=== PATIENT | female | born 1965 | race Caucasian/White ===

== ENCOUNTER → 2016-05-29 | Outpatient (CLI) | payer OTHER ==
[~2016-05-29] MED LIST: CITA40TA12 PO; CLB/200 PO; METF500T PO; RANI300T2 PO; RXC5 PO
== END | disposition home or self-care (01) ==
LOC: C.PAPS 15:43
PROVIDERS: ATTEND Obstetrics & Gynecology
DX: Z12.4 Encounter for screening for malignant neoplasm of cervix (principal)

== ENCOUNTER → 2017-07-24 | Outpatient (CLI) | payer OTHER | END | disposition home or self-care (01) | LOC: C.PAPS 15:12 | PROVIDERS: ATTEND Obstetrics & Gynecology | DX: Z01.419 Encounter for gynecological examination (general) (routine) without abnormal findings (principal) ==

== ENCOUNTER 2020-03-06 16:57 | Inpatient (IN) ==
--- OUTSIDE RECORDS SUMMARY | 2020-03-06 17:00 | External Medical Summary | Continuity of Care Document ---
:1965 Author Name Gabriel Peguero Address Unavailable Unavailable , Care Team Providers Name Role Phone Sherrell Peguero Unavailable [email or web address] [email or web address] Unavailable Unavailable Problems Active medical history not documented Allergies and Adverse Reactions Allergy history not documented Medications Medications not documented Procedures Procedures not documented Immunizations Immunizations not documented Plan of Treatment Planned Observations Planned Goals not documented Results No Known Results Results not documented
--- OUTSIDE RECORDS SUMMARY | 2020-03-06 17:00 | External Medical Summary | Continuity of Care Document ---
:1965 Author Name Gabriel Peguero Address Unavailable Unavailable , Care Team Providers Name Role Phone Sherrell Peguero Unavailable [email or web address] Willie CASH Unavailable Unavailable Problems Active medical history not documented Allergies and Adverse Reactions Allergy history not documented Medications Medications not documented Procedures Procedures not documented Immunizations Immunizations not documented Plan of Treatment Planned Observations Planned Goals not documented Results No Known Results Results not documented
[2020-03-06 17:46] LABS: Basophils # (auto) 0.02 K/uL (0-0.2); Basophils % (auto) 0.1 %; Hematocrit (blood only) 55.4 % (37-47); Immature Granulocytes # (auto) 0.11 K/uL (0.00-0.02); Immature Granulocytes % (auto) 0.7 %; Lymphocytes # (auto) 2.76 K/uL (1.2-3.4); Lymphocytes % (auto) 16.9 %; Mean Corpuscular Hemoglobin 29.8 pg (25-34); Mean Platelet Volume 10.5 fL (7.4-10.4); Monocytes # (auto) 1.22 K/uL (0.11-0.59); Monocytes % (auto) 7.5 %; Neutrophils % (auto) 74.8 %; Platelet Count 354 K/uL (130-400); RDW Coefficient of Variation 14.6 % (11.5-14.5); RDW Standard Deviation 52.3 fL (36.4-46.3); Red Blood Count 5.71 M/uL (4.2-5.4); White Blood Count 16.31 K/uL (4.8-10.8)
[2020-03-06 17:49] LABS: Mean Corpuscular Hgb Conc 30.7 g/dL (32-36)
[2020-03-06] MEDS ORDERED: SODIUM CHLORIDE 0.9% 1000ML 2,000 ML IV ONE (17:58)
[2020-03-06] MEDS ORDERED: ONDANSETRON INJ 2 MG/ML 2 ML VIAL IV STA (17:58)
[2020-03-06] MEDS ORDERED: KETOROLAC TROMETHAMINE 15 MG/ML VIAL IV STA (17:58)
[2020-03-06 18:20] LABS: Albumin Level 4.2 gm/dl (3.4-5.0); BUN Creatinine Ratio 12.6 (10-20); Calcium 10.3 mg/dl (8.5-10.1); Creatinine Clr Calc Pharmacy 33.1 ml/min; Est GFR (African American) 39.8; Est GFR (Non-African American) 34.3
[2020-03-06 18:24] LABS: Albumin Globulin Ratio 0.9 (0.9-2); Bilirubin,Total 0.3 mg/dl (0.2-1); Globulin 4.8 gm/dl (2.5-4.0)
[2020-03-06 19:05] LABS: Appearance Urine Cloudy (Clear); Bacteria Urine Automated Negative (Negative); Bilirubin Urine Negative (Negative); Blood Urine Negative (Negative); Color Urine Yellow; Epithelial Cell Urine Auto >30 /lpf (0-5); Glucose Urine UA 3+ (Negative); Ketones Urine 4+ (Negative); Leukocyte Esterase Urine Negative (Negative); Nitrite Urine Negative (Negative); Protein Urine 2+ (Negative); Specific Gravity Urine 1.026 (1.000-1.030); Urobilinogen Urine Negative (Negative)
--- NOTE | 2020-03-06 19:12 | CT Scan Report ---
CT SCAN OF THE ABDOMEN AND PELVIS WITHOUT CONTRAST CLINICAL HISTORY: Vomiting COMPARISON STUDY: No previous studies for comparison. TECHNIQUE: CT scan of the abdomen and pelvis was performed from the lung bases to the proximal femurs . Images are reviewed in the axial, sagittal, and coronal planes. IV contrast was not administered fo r this examination. A dose lowering technique was utilized adhering to the principles of ALARA. CT DOSE: 245.80 mGy.cm FINDINGS: Lower chest: The heart is normal in size and configuration, without pericardial effusion. The lung ba ses and pleural spaces are clear. Liver: There is hepatic steatosis. No focal hepatic masses are visualized. Gallbladder: Unremarkable. Spleen: Normal in size and attenuation. Pancreas: Unremarkable. Adrenal glands: There is minor left adrenal gland nodule thickening. This is of doubtful acute clinic al significance Kidneys: No renal, ureteral, or bladder calculi are visualized. Bowel: There are no transition zones indicate bowel obstruction. There is no evidence of acute divert iculitis. By history the appendix is surgically absent. Peritoneum: There is no intraperitoneal free air or abdominal ascites. Vasculature: The abdominal aorta is normal in course and caliber. Adenopathy: There is a partially visualized 24 mm cystic lesion in the right inferior inguinal region . This is of uncertain etiology. Clinical correlation advocated. 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 There is a grade 1 spondylolisthesis of L5 on S1. IMPRESSION: 1. No evidence of bowel obstruction. No evidence of free air 2. No renal, ureteral, or bladder calculi identified 3. No acute inflammatory changes 4. Partially visualized 24 mm cystic lesion within the right inferior inguinal region. This is of unc ertain etiology. Clinical correlation advocated. ACT 112: Negative or not required by law. Electronically signed by: Richie Carrasco M.D. 03/06/2020 7:11 PM
[2020-03-06 19:34] LABS: Base Excess VBG -20.6 mEq/L; Oxygen Saturation VBG 69.3 %; pH VBG 7.08 (7.36-7.41)
[2020-03-06 19:40] LABS: Mucus Urine Present (None Prsent); RBC Urine Automated 0-4 /hpf (0-4)
--- NOTE | 2020-03-06 19:42 | Emergency Department Note ---
History of Present Illness General Chief complaint: Illness Stated complaint: DEHYDRATED Time Seen by Provider: 03/06/20 17:50 History of Present Illness Provider complaint: Vomiting Onset (ago): day(s) 2 Radiation: abdomen Maximum Pain Intensity: 6 Current Pain Intensity: 6 Associated symptoms: + nausea/vomiting; no chest pain, no cough, no fever/chills, no headaches, no seizure and no shortness of breath 54-year-old diabetic female presents emergency department for vomiting. Patient reports she has been vomiting for the last 2 days. Patient states she has vomited 10 times over the last 2 days. Patient states she had a recent melanoma behind her right knee removed in January at [facility] and noticed it became infected, she states she started Keflex for the infection on . Patient denies any fevers. She denies any loss of taste or smell, no hematemesis, No coffee-ground emesis, no melena or hematochezia, no vaginal discharge or bleeding. Home Medications Home Medications Medication Instructions Recorded Confirmed Type citalopram 10 mg PO HS 03/06/20 03/06/20 History conjugated estrogens [Premarin] 0.625 mg PO QAM 03/06/20 03/06/20 History cyanocobalamin (vitamin B-12) 500 mcg PO QAM 03/06/20 03/06/20 History [Vitamin B-12] empagliflozin [Jardiance] 25 mg PO QAM 03/06/20 03/06/20 History ibuprofen [Advil] 400 mg PO Q6H PRN 03/06/20 03/06/20 History lisinopril 2.5 mg PO QAM 03/06/20 03/06/20 History metformin 850 mg PO TIDM 03/06/20 03/06/20 History semaglutide [Ozempic] 2 mg SUBCUT WK 03/06/20 03/06/20 History Allergies Allergy/AdvReac Type Severity Reaction Status Date / Time codeine Allergy Severe HIVES,SOB Verified 03/06/20 20:01 adhesive Allergy Intermediate RED,ITCHY,H Verified 03/06/20 20:01 BINA Sulfa (Sulfonamide Allergy Intermediate "SULFA Verified 03/06/20 20:01 Antibiotics) DRUGS": RASH AND HIVES salicylates Allergy Unknown PT Verified 03/06/20 20:01 STORAGE POLE DISEASE morphine AdvReac Intermediate EXTREME Verified 03/06/20 20:01 NAUSEA AND VOMITING Past Med/Surg History Medical History (Updated 03/06/20 @ 21:42 by Jesus Veloz) Diabetes Diabetes with ketoacidosis Melanoma Surgical History (Updated 03/06/20 @ 20:33 by Jesus Veloz) Hx of melanoma excision Social History Smoking Status: Never smoker Preferred Language: Japanese Feels Safe at Home: Yes Review of Systems A total of 10 systems reviewed and were otherwise negative Physical Exam Vital Signs Vital Signs - 24 hr 03/06/20 17:14 03/06/20 18:29 03/06/20 18:40 Temperature 36.5 C Temperature Source Oral Pulse Rate 148 H Pulse Rate [Finger] 129 H Respiratory Rate 18 18 Respiratory Effort / Characteristics Non-Labored Spontaneous Respiratory Depth Normal Respiratory Pattern Regular Blood Pressure 114/69 Blood Pressure Mean 84 Blood Pressure Position Sitting Pulse Oximetry 99 95 99 Oxygen Delivery Method Room Air Room Air Room Air Sepsis Recent Fever Within 48 Hours No Sepsis New/Unexplained Change in Mental Status N/A Sepsis Action Taken by Nursing No Action Required Physical Exam GENERAL: Patient is ill-appearing. HENT: Exam performed. -Head: Normocephalic and atraumatic. -Right Ear: External ear normal. No mastoid tenderness. -Left Ear: External ear normal. No mastoid tenderness. -Mouth/Throat: Dry mucous membranes. EYES: Conjunctivae and EOM are normal. Pupils are equal, round, and reactive to light. Right eye exhibits no discharge. Left eye exhibits no discharge. No scleral icterus. NECK: Normal range of motion. Neck supple. No JVD present. No spinous process tenderness present. No carotid bruit present. No rigidity. No tracheal deviation and normal range of motion present. No Brudzinski's sign and no Kernig's sign noted. CV: Tachycardic rate, regular rhythm, normal heart sounds and intact distal pulses. There is no peripheral edema. Palpable radial pulses bue. PULM/CHEST: Effort normal and breath sounds normal. No respiratory distress. No stridor. She has no wheezes. She has no rales. -Chest Wall: She exhibits no tenderness. ABD: The abdomen is soft. Bowel sounds are normal. She has no distension. No mass is present. There is tenderness to palpation of the epigastric area. There is no rebound, no guarding, no Henriquez's sign and no tenderness at McBurney's point. Rovsig negative MUSC/SKEL: Normal range of motion. There is no peripheral edema, tenderness or deformity. LYMPH: No cervical adenopathy. NEURO: She is alert and oriented to person, place, and time. She has normal strength. No cranial nerve deficit or sensory deficit. Coordination and gait normal. GCS eye subscore is 4. GCS verbal subscore is 5. GCS motor subscore is 6. Cerebellar tests wnl. SKIN: Skin is warm and dry. She is not diaphoretic. PSYCH: She has a normal mood and affect. Behavior is normal. Judgment and thought content normal. Course Course 1749: The patient was evaluated in room B2. A complete history and physical exam was performed. Patient was seen during a time of extreme volume and acuity during the COVID-19 pandemic. Orders were initiated by nursing triage protocols. Cardiac monitoring: An order was placed for continuous cardiac monitoring. The monitor shows a rate of 130 with sinus tachycardia rhythm Patient has leukocytosis 16. Patient is on 2 L IV fluid bolus. 1914: Patient's anion gap is 24 however glucose is only 213. Given this there was strong concern that the patient might have an increased osmolar gap and the possibility for toxic alcohol ingestion also. Serum osmolality was added. Lactic acid within normal limits. Patient denies any toxic alcohol ingestion such as products containing methanol or ethylene glycol such as when she wiper fluid or antifreeze. She denies any use of alcohol. She denies intentionally taking too much of her medications in order to cause harm. We will check serum salicylate, Tylenol, alcohol, and venous blood gas. 2001: Patient's serum osmolar gap is 22. Venous pH is 7.08 with a venous pH CO2 of 28. Patient will be given 1 amp sodium bicarb. Spoke with the bandmill operator Dr. Mckeon. Both he and I are concerned that the patient might have had a toxic alcohol ingestion despite her saying she has not ingested any toxic alcohols. Fomepizole 15 mg/kg will be ordered over 30 minutes, spoke with pharmacy who will send it up. Dr. Mckeon also stated that there is a possibility that the patient might have a euglycemic diabetic ketoacidosis given that she is on Jardiance. He states there is a possibility that we might need to start the pa tient on insulin drip as well as a dextrose drip. Patient is finished her 2 L normal saline bolus. He recommends normal saline at 150 cc/h over switching to lactated Ringer's at this time. He recommends rechecking a beta hydroxybutyrate, repeat metabolic panel, repeat a VBG, repeat magnesium, repeat phosphorus, and repeat lipase to help determine if we should start the patient on insulin and dextrose drip at the same time. He agrees that the patient should be admitted to the ICU. [facility] hospitalist Dr. Hinkle will be notified. 2020: Spoke with [facility] who stated they will have the beater lead call me back. 2031: Dr. Mckeon recommends another amp of bicarb. 2045: Discussed with [facility] toxicology Dr. Jason. 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 He states that the does not need to be a necessary Jardiance overdose but it could be a physiological insult which caused the Jardiance levels to accumulate in her body and cause the euglycemic DKA. I did mention the recent skin infection which she has been treated for and he said that could cause it. He states that it is not likely Metformin associated metabolic lactic acidosis as the patient has a normal lactic acid level and a minimally elevated creatinine level. Dr. Davis recommends repeat VBG in 2 hours and if it is not significant improved to then start insulin drip at 0.1 units/kg/h and D5 half-normal saline concurrently. He does not recommend against further administration of sodium bicarb boluses at this time or bicarb drip. 2133: Vital signs stable. Repeat labs showed a CO2 of 6 and anion gap of 20. Serum glucose 169. Discussed with Dr. Mckeon he recommends starting the insulin drip at this time he also recommends starting D5 half-normal saline given the low bicarb and high hydrate beta hydroxybutyrate. Beta hydroxybutyrate was 100. Dr. Mckeon recommends given the D5 half-normal saline for 15 minutes and then starting the insulin drip at 0.1 units/kg/h with no bolus. He recommends keeping the serum glucose between 200-250 and having every 4 hour BMPs. 2146: Patient is to be admitted to [facility] Dr. Amin has been notified and states he will place admission orders to the ICU. Administered Medications Sodium Chloride (Nss 1000ml) 1,000 mls @ 150 mls/hr IV .Q6H40M KATHY Stop: 04/05/20 20:14 Last Admin: 03/06/20 20:11 Dose: 150 mls/hr Documented by: [id number] Dextrose/Sodium Chloride (D5w And 1/2nss) 1,000 mls @ 100 mls/hr IV .Q10H KATHY Stop: 04/05/20 21:29 Last Admin: 03/06/20 21:43 Dose: 100 mls/hr Documented by: [id number] Insulin Human Regular 250 (units/ Sodium Chloride) 250 mls @ 5.5 mls/hr IV .Q24H [facility]; Protocol Stop: 04/05/20 21:29 Last Admin: 03/06/20 22:16 Dose: 5.5 units/hr, 5.5 mls/hr Documented by: [id number] Cosigned by: [id number] Discontinued Medications Acetaminophen (Acetaminophen 1000 Mg/100 Ml Iv) 1,000 mg IV NOW STA Stop: 03/06/20 19:51 Last Admin: 03/06/20 20:32 Dose: 1,000 mg Documented by: [id number] Sodium Chloride (Nss 1000ml) 2,000 mls @ 999 mls/hr IV .Q2H1M ONE Stop: 03/06/20 19:58 Last Infusion: 03/06/20 20:29 Dose: 0 mls/hr Documented by: [id number] Admin: 03/06/20 18:22 Dose: 999 mls/hr Documented by: [id number] Fomepizole 0.83 gm/ Dextrose 100.83 mls @ 200 mls/hr IV ONE ONE Stop: 03/06/20 21:00 Last Infusion: 03/06/20 21:14 Dose: 0 mls/hr Documented by: [id number] Admin: 03/06/20 20:42 Dose: 200 mls/hr Documented by: [id number] Ketorolac Tromethamine (Ketorolac Tromethamine 15 Mg/Ml Vial) 15 mg IV NOW STA Stop: 03/06/20 17:59 Last Admin: 03/06/20 18:22 Dose: 15 mg Documented by: [id number] Ondansetron HCl (Ondansetron Inj 2 Mg/Ml 2 Ml Vial) 4 mg IV NOW STA Stop: 03/06/20 17:59 Last Admin: 03/06/20 18:22 Dose: 4 mg Documented by: [id number] Sodium Bicarbonate (Sodium Bicarb 8.4% Inj 50 Meq/50 Ml Syr) 50 meq IV NOW STA Stop: 03/06/20 19:45 Last Admin: 03/06/20 19:51 Dose: 50 meq Documented by: [id number] Sodium Bicarbonate (Sodium Bicarb 8.4% Inj 50 Meq/50 Ml Syr) 50 meq IV NOW STA Stop: 03/06/20 20:34 Last Admin: 03/06/20 20:39 Dose: 50 meq Documented by: [id number] Critical Care Time Critical Care Time: Yes Total Critical Care Time: 124 I have personally spent greater than 124 minutes of critical care time in the direct management of this patient. This includes bedside care, interpretation of diagnostic studies, and testing, discussion with consultants, patient, and f amily members, and other required patient management activities. This 124 minutes is in excess of all separately billable procedures. Medical Decision Making Laboratory Data Result diagrams: 03/06/20 17:30 03/06/20 20:29 Lab Results 03/06/20 03/06/20 03/06/20 Range/Units 17:30 17:30 18:19 WBC 16.31 H (4.8-10.8) K/uL RBC 5.71 H (4.2-5.4) M/uL Hgb 17.0 H (12.0-16.0) g/dL Hct 55.4 H (37-47) % MCV 97.0 (80-100) fL MCH 29.8 (25-34) pg MCHC 30.7 L (32-36) g/dL RDW Std Deviation 52.3 H (36.4-46.3) fL RDW Coeff of Maribel 14.6 H (11.5-14.5) % Plt Count 354 (130-400) K/uL MPV 10.5 H (7.4-10.4) fL Immature Gran % (Auto) 0.7 % Neut % (Auto) 74.8 % Lymph % (Auto) 16.9 % [place] % (Auto) 7.5 % Eos % (Auto) 0.0 % Baso % (Auto) 0.1 % Neut # (Auto) 12.20 H (1.4-6.5) K/uL Lymph # (Auto) 2.76 (1.2-3.4) K/uL [place] # (Auto) 1.22 H (0.11-0.59) K/uL Eos # (Auto) 0.00 (0-0.5) K/uL Baso # (Auto) 0.02 (0-0.2) K/uL Immature Gran # (Auto) 0.11 H (0.00-0.02) K/uL VBG pH (7.36-7.41) VBG pCO2 (38-50) mmHg VBG pO2 mmHg VBG HCO3 mmol/L VBG O2 Saturation % VBG Base Excess mEq/L Barometric Pressure mm/Hg Sodium 138 (136-145) mmol/L Potassium 5.0 (3.5-5.1) mmol/L Chloride 107 (98-107) mmol/L Carbon Dioxide 7 L* (21-32) mmol/L Anion Gap 24.0 H (3-11) BUN 21 H (7-18) mg/dl Creatinine 1.65 H (0.6-1.2) mg/dl Est Cr Clr Drug Dosing 33.1 ml/min Est GFR ( Amer) 39.8 Est GFR (Non-Af Amer) 34.3 BUN/Creatinine Ratio 12.6 (10-20) Glucose 213 H (70-99) mg/dl POC Glucose (70-99) mg/dl Osmolality (280-300) mOsm/kg Lactate 1.4 (0.4-2.0) mmol/L Calcium 10.3 H (8.5-10.1) mg/dl Phosphorus (2.5-4.9) mg/dl Magnesium (1.8-2.4) mg/dl Total Bilirubin 0.3 (0.2-1) mg/dl AST 10 L (15-37) U/L ALT 19 (12-78) U/L Alkaline Phosphatase 102 (45-117) U/L Total Protein 9.0 H (6.4-8.2) gm/dl Albumin 4.2 (3.4-5.0) gm/dl Globulin 4.8 H (2.5-4.0) gm/dl Albumin/Globulin Ratio 0.9 (0.9-2) Lipase (73-393) U/L Beta-Hydroxybutyric Acd (0.2-2.81) mg/dl Urine Color Urine Appearance (Clear) Urine pH (4.5-7.5) Ur Specific [place] (1.000-1.030) Urine Protein (Negative) Urine Glucose (UA) (Negative) Urine Ketones (Negative) Urine Blood (Negative) Urine Nitrite (Negative) Urine Bilirubin (Negative) Urine Urobilinogen (Negative) Ur Leukocyte Esterase (Negative) Urine WBC (Auto) (0-5) /hpf Urine RBC (Auto) (0-4) /hpf U Hyaline Cast (Auto) (0-5) /lpf U Epithel Cells (Auto) (0-5) /lpf Urine Bacteria (Auto) (Negative) Urine Mucus (None Prsent) Urine Osmolality (500-800) mOsm/kg Salicylates (2.8-20) mg/dl Acetaminophen (10-30) ug/ml Ethyl Alcohol mg/dL (0-3) mg/dl 03/06/20 03/06/20 03/06/20 Range/Units 18:21 18:38 18:38 WBC (4.8-10.8) K/uL RBC (4.2-5.4) M/uL Hgb (12.0-16.0) g/dL Hct (37-47) % MCV (80-100) fL MCH (25-34) pg MCHC (32-36) g/dL RDW Std Deviation (36.4-46.3) fL RDW Coeff of Maribel (11.5-14.5) % Plt Count (130-400) K/uL MPV (7.4-10.4) fL Immature Gran % (Auto) % Neut % (Auto) % Lymph % (Auto) % [place] % (Auto) % Eos % (Auto) % Baso % (Auto) % Neut # (Auto) (1.4-6.5) K/uL Lymph # (Auto) (1.2-3.4) K/uL [place] # (Auto) (0.11-0.59) K/uL Eos # (Auto) (0-0.5) K/uL Baso # (Auto) (0-0.2) K/uL Immature Gran # (Auto) (0.00-0.02) K/uL VBG pH (7.36-7.41) VBG pCO2 (38-50) mmHg VBG pO2 mmHg VBG HCO3 mmol/L VBG O2 Saturation % VBG Base Excess mEq/L Barometric Pressure mm/Hg Sodium (136-145) mmol/L Potassium (3.5-5.1) mmol/L Chloride (98-107) mmol/L Carbon Dioxide (21-32) mmol/L Anion Gap (3-11) BUN (7-18) mg/dl Creatinine (0.6-1.2) mg/dl Est Cr Clr Drug Dosing ml/min Est GFR ( Amer) Est GFR (Non-Af Amer) BUN/Creatinine Ratio (10-20) Glucose (70-99) mg/dl POC Glucose 207 H (70-99) mg/dl Osmolality (280-300) mOsm/kg Lactate (0.4-2.0) mmol/L Calcium (8.5-10.1) mg/dl Phosphorus (2.5-4.9) mg/dl Magnesium (1.8-2.4) mg/dl Total Bilirubin (0.2-1) mg/dl AST (15-37) U/L ALT (12-78) U/L Alkaline Phosphatase (45-117) U/L Total Protein (6.4-8.2) gm/dl Albumin (3.4-5.0) gm/dl Globulin (2.5-4.0) gm/dl Albumin/Globulin Ratio (0.9-2) Lipase (73-393) U/L Beta-Hydroxybutyric Acd (0.2-2.81) mg/dl Urine Color Yellow Urine Appearance Cloudy A (Clear) Urine pH 5.0 (4.5-7.5) Ur Specific [place] 1.026 (1.000-1.030) Urine Protein 2+ H (Negative) Urine Glucose (UA) 3+ H (Negative) Urine Ketones 4+ H (Negative) Urine Blood Negative (Negative) Urine Nitrite Negative (Negative) Urine Bilirubin Negative (Negative) Urine Urobilinogen Negative (Negative) Ur Leukocyte Esterase Negative (Negative) Urine WBC (Auto) 1-5 (0-5) /hpf Urine RBC (Auto) 0-4 (0-4) /hpf U Hyaline Cast (Auto) 10-30 H (0-5) /lpf U Epithel Cells (Auto) >30 H (0-5) /lpf Urine Bacteria (Auto) Negative (Negative) Urine Mucus Present A (None Prsent) Urine Osmolality 530 (500-800) mOsm/kg Salicylates (2.8-20) mg/dl Acetaminophen (10-30) ug/ml Ethyl Alcohol mg/dL (0-3) mg/dl 03/06/20 03/06/20 03/06/20 Range/Units 19:17 19:17 19:17 WBC (4.8-10.8) K/uL RBC (4.2-5.4) M/uL Hgb (12.0-16.0) g/dL Hct (37-47) % MCV (80-100) fL MCH (25-34) pg MCHC (32-36) g/dL RDW Std Deviation (36.4-46.3) fL RDW Coeff of Maribel (11.5-14.5) % Plt Count (130-400) K/uL MPV (7.4-10.4) fL Immature Gran % (Auto) % Neut % (Auto) % Lymph % (Auto) % [place] % (Auto) % Eos % (Auto) % Baso % (Auto) % Neut # (Auto) (1.4-6.5) K/uL Lymph # (Auto) (1.2-3.4) K/uL [place] # (Auto) (0.11-0.59) K/uL Eos # (Auto) (0-0.5) K/uL Baso # (Auto) (0-0.2) K/uL Immature Gran # (Auto) (0.00-0.02) K/uL VBG pH (7.36-7.41) VBG pCO2 (38-50) mmHg VBG pO2 mmHg VBG HCO3 mmol/L VBG O2 Saturation % VBG Base Excess mEq/L Barometric Pressure mm/Hg Sodium (136-145) mmol/L Potassium (3.5-5.1) mmol/L Chloride (98-107) mmol/L Carbon Dioxide (21-32) mmol/L Anion Gap (3-11) BUN (7-18) mg/dl Creatinine (0.6-1.2) mg/dl Est Cr Clr Drug Dosing ml/min Est GFR ( Amer) Est GFR (Non-Af Amer) BUN/Creatinine Ratio (10-20) Glucose (70-99) mg/dl POC Glucose (70-99) mg/dl Osmolality 317 H (280-300) mOsm/kg Lactate (0.4-2.0) mmol/L Calcium (8.5-10.1) mg/dl Phosphorus (2.5-4.9) mg/dl Magnesium (1.8-2.4) mg/dl Total Bilirubin (0.2-1) mg/dl AST (15-37) U/L ALT (12-78) U/L Alkaline Phosphatase (45-117) U/L Total Protein (6.4-8.2) gm/dl Albumin (3.4-5.0) gm/dl Globulin (2.5-4.0) gm/dl Albumin/Globulin Ratio (0.9-2) Lipase (73-393) U/L Beta-Hydroxybutyric Acd (0.2-2.81) mg/dl Urine Color Urine Appearance (Clear) Urine pH (4.5-7.5) Ur Specific [place] (1.000-1.030) Urine Protein (Negative) Urine Glucose (UA) (Negative) Urine Ketones (Negative) Urine Blood (Negative) Urine Nitrite (Negative) Urine Bilirubin (Negative) Urine Urobilinogen (Negative) Ur Leukocyte Esterase (Negative) Urine WBC (Auto) (0-5) /hpf Urine RBC (Auto) (0-4) /hpf U Hyaline Cast (Auto) (0-5) /lpf U Epithel Cells (Auto) (0-5) /lpf Urine Bacteria (Auto) (Negative) Urine Mucus (None Prsent) Urine Osmolality (500-800) mOsm/kg Salicylates 2.9 (2.8-20) mg/dl Acetaminophen < 2 L (10-30) ug/ml Ethyl Alcohol mg/dL < 3.0 (0-3) mg/dl 03/06/20 03/06/20 03/06/20 Range/Units 19:17 20:29 20:29 WBC (4.8-10.8) K/uL RBC (4.2-5.4) M/uL Hgb (12.0-16.0) g/dL Hct (37-47) % MCV (80-100) fL MCH (25-34) pg MCHC (32-36) g/dL RDW Std Deviation (36.4-46.3) fL RDW Coeff of Maribel (11.5-14.5) % Plt Count (130-400) K/uL MPV (7.4-10.4) fL Immature Gran % (Auto) % Neut % (Auto) % Lymph % (Auto) % [place] % (Auto) % Eos % (Auto) % Baso % (Auto) % Neut # (Auto) (1.4-6.5) K/uL Lymph # (Auto) (1.2-3.4) K/uL [place] # (Auto) (0.11-0.59) K/uL Eos # (Auto) (0-0.5) K/uL Baso # (Auto) (0-0.2) K/uL Immature Gran # (Auto) (0.00-0.02) K/uL VBG pH 7.08 L 7.22 L (7.36-7.41) VBG pCO2 28 L 16 L (38-50) mmHg VBG pO2 40 145 mmHg VBG HCO3 8 7 mmol/L VBG O2 Saturation 69.3 98.8 % VBG Base Excess -20.6 -18.7 mEq/L Barometric Pressure 742.1 742.1 mm/Hg Sodium 143 (136-145) mmol/L Potassium 4.7 (3.5-5.1) mmol/L Chloride 117 H (98-107) mmol/L Carbon Dioxide 6 L* (21-32) mmol/L Anion Gap 20.0 H (3-11) BUN 18 (7-18) mg/dl Creatinine 1.12 D (0.6-1.2) mg/dl Est Cr Clr Drug Dosing 48.8 ml/min Est GFR ( Amer) 63.6 Est GFR (Non-Af Amer) 54.9 BUN/Creatinine Ratio 16.2 (10-20) Glucose 169 H (70-99) mg/dl POC Glucose (70-99) mg/dl Osmolality (280-300) mOsm/kg Lactate (0.4-2.0) mmol/L Calcium 9.5 (8.5-10.1) mg/dl Phosphorus 2.6 (2.5-4.9) mg/dl Magnesium 1.8 (1.8-2.4) mg/dl Total Bilirubin (0.2-1) mg/dl AST (15-37) U/L ALT (12-78) U/L Alkaline Phosphatase (45-117) U/L Total Protein (6.4-8.2) gm/dl Albumin (3.4-5.0) gm/dl Globulin (2.5-4.0) gm/dl Albumin/Globulin Ratio (0.9-2) Lipase 110 (73-393) U/L Beta-Hydroxybutyric Acd 100.27 H (0.2-2.81) mg/dl Urine Color Urine Appearance (Clear) Urine pH (4.5-7.5) Ur Specific [place] (1.000-1.030) Urine Protein (Negative) Urine Glucose (UA) (Negative) Urine Ketones (Negative) Urine Blood (Negative) Urine Nitrite (Negative) Urine Bilirubin (Negative) Urine Urobilinogen (Negative) Ur Leukocyte Esterase (Negative) Urine WBC (Auto) (0-5) /hpf Urine RBC (Auto) (0-4) /hpf U Hyaline Cast (Auto) (0-5) /lpf U Epithel Cells (Auto) (0-5) /lpf Urine Bacteria (Auto) (Negative) Urine Mucus (None Prsent) Urine Osmolality (500-800) mOsm/kg Salicylates (2.8-20) mg/dl Acetaminophen (10-30) ug/ml Ethyl Alcohol mg/dL (0-3) mg/dl 03/06/20 Range/Units 21:57 WBC (4.8-10.8) K/uL RBC (4.2-5.4) M/uL Hgb (12.0-16.0) g/dL Hct (37-47) % MCV (80-100) fL MCH (25-34) pg MCHC (32-36) g/dL RDW Std Deviation (36.4-46.3) fL RDW Coeff of Maribel (11.5-14.5) % Plt Count (130-400) K/uL MPV (7.4-10.4) fL Immature Gran % (Auto) % Neut % (Auto) % Lymph % (Auto) % [place] % (Auto) % Eos % (Auto) % Baso % (Auto) % Neut # (Auto) (1.4-6.5) K/uL Lymph # (Auto) (1.2-3.4) K/uL [place] # (Auto) (0.11-0.59) K/uL Eos # (Auto) (0-0.5) K/uL Baso # (Auto) (0-0.2) K/uL Immature Gran # (Auto) (0.00-0.02) K/uL VBG pH (7.36-7.41) VBG pCO2 (38-50) mmHg VBG pO2 mmHg VBG HCO3 mmol/L VBG O2 Saturation % VBG Base Excess mEq/L Barometric Pressure mm/Hg Sodium (136-145) mmol/L Potassium (3.5-5.1) mmol/L Chloride (98-107) mmol/L Carbon Dioxide (21-32) mmol/L Anion Gap (3-11) BUN (7-18) mg/dl Creatinine (0.6-1.2) mg/dl Est Cr Clr Drug Dosing ml/min Est GFR ( Amer) Est GFR (Non-Af Amer) BUN/Creatinine Ratio (10-20) Glucose (70-99) mg/dl POC Glucose 281 H (70-99) mg/dl Osmolality (280-300) mOsm/kg Lactate (0.4-2.0) mmol/L Calcium (8.5-10.1) mg/dl Phosphorus (2.5-4.9) mg/dl Magnesium (1.8-2.4) mg/dl Total Bilirubin (0.2-1) mg/dl AST (15-37) U/L ALT (12-78) U/L Alkaline Phosphatase (45-117) U/L Total Protein (6.4-8.2) gm/dl Albumin (3.4-5.0) gm/dl Globulin (2.5-4.0) gm/dl Albumin/Globulin Ratio (0.9-2) Lipase (73-393) U/L Beta-Hydroxybutyric Acd (0.2-2.81) mg/dl Urine Color Urine Appearance (Clear) Urine pH (4.5-7.5) Ur Specific [place] (1.000-1.030) Urine Protein (Negative) Urine Glucose (UA) (Negative) Urine Ketones (Negative) Urine Blood (Negative) Urine Nitrite (Negative) Urine Bilirubin (Negative) Urine Urobilinogen (Negative) Ur Leukocyte Esterase (Negative) Urine WBC (Auto) (0-5) /hpf Urine RBC (Auto) (0-4) /hpf U Hyaline Cast (Auto) (0-5) /lpf U Epithel Cells (Auto) (0-5) /lpf Urine Bacteria (Auto) (Negative) Urine Mucus (None Prsent) Urine Osmolality (500-800) mOsm/kg Salicylates (2.8-20) mg/dl Acetaminophen (10-30) ug/ml Ethyl Alcohol mg/dL (0-3) mg/dl Imaging Data Radiologist's Impression: CT SCAN OF THE ABDOMEN AND PELVIS WITHOUT CONTRAST CLINICAL HISTORY: Vomiting COMPARISON STUDY: No previous studies for comparison. TECHNIQUE: CT scan of the abdomen and pelvis was performed from the lung bases to the proximal femurs. Images are reviewed in the axial, sagittal, and coronal planes. IV contrast was not administered for this examination. A dose lowering technique was utilized adhering to the principles of ALARA. CT DOSE: 245.80 mGy.cm FINDINGS: Lower chest: The heart is normal in size and configuration, without pericardial effusion. The lung bases and pleural spaces are clear. Liver: There is hepatic steatosis. No focal hepatic masses are visualized. Gallbladder: Unremarkable. Spleen: Normal in size and attenuation. Pancreas: Unremarkable. Adrenal glands: There is minor left adrenal gland nodule thickening. This is of doubtful acute clinical significance Kidneys: No renal, ureteral, or bladder calculi are visualized. Bowel: There are no transition zones indicate bowel obstruction. There is no evidence of acute diverticulitis. By history the appendix is surgically absent. Peritoneum: There is no intraperitoneal free air or abdominal ascites. Vasculature: The abdominal aorta is normal in course and caliber. Adenopathy: There is a partially visualized 24 mm cystic lesion in the right inferior inguinal region. This is of uncertain etiology. Clinical correlation advocated. 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 There is a grade 1 spondylolisthesis of L5 on S1. IMPRESSION: 1. No evidence of bowel obstruction. No evidence of free air 2. No renal, ureteral, or bladder calculi identified 3. No acute inflammatory changes 4. Partially visualized 24 mm cystic lesion within the right inferior inguinal region. This is of uncertain etiology. Clinical correlation advocated. ACT 112: Negative or not required by law. Electronically signed by: Richie Carrasco M.D. 03/06/2020 7:11 PM Dictated: 03/06/201905 Transcribed: 03/06/201905 ECG Data Indication: + weakness Rate (beats per minute): 134 Rhythm: + normal sinus ECG Intervals/blocks: + Normal [place] and + Normal QT-c ECG ST segments: + Normal ST segments Additional Comments: QRS interval [address] [facility] Narrative 1750: The patient was evaluated in room B2. A complete history and physical exam was performed. Patient was seen during a time of extreme volume and acuity during the COVID-19 pandemic. Orders were initiated by nursing triage protocols. Cardiac monitoring: An order was placed for continuous cardiac monitoring. The monitor shows a rate of 130 with sinus tachycardia rhythm Patient has leukocytosis 16. Patient is on 2 L IV fluid bolus. 1914: Patient's anion gap is 24 however glucose is only 213. Given this there was strong concern that the patient might have an increased osmolar gap and the possibility for toxic alcohol ingestion also. Serum osmolality was added. Lactic acid within normal limits. Patient denies any toxic alcohol ingestion such as products containing methanol or ethylene glycol such as when she wiper fluid or antifreeze. She denies any use of alcohol. She denies intentionally taking too much of her medications in order to cause harm. We will check serum salicylate, Tylenol, alcohol, and venous blood gas. 2001: Patient's serum osmolar gap is 22. Venous pH is 7.08 with a venous pH CO2 of 28. Patient will be given 1 amp sodium bicarb. Spoke with the bandmill operator Dr. Mckeon. Both he and I are concerned that the patient might have had a toxic alcohol ingestion despite her saying she has not ingested any toxic alcohols. Fomepizole 15 mg/kg will be ordered over 30 minutes, spoke with pharmacy who will send it up. Dr. Mcekon also stated that there is a possibility that the patient might have a euglycemic diabetic ketoacidosis given that she is on Jardiance. He states there is a possibility that we might need to start the patient on insulin drip as well as a dextrose drip. Patient is finished her 2 L normal saline bolus. He recommends normal saline at 150 cc/h over switching to lactated Ringer's at this time. He recommends rechecking a beta hydroxybuty rate, repeat metabolic panel, repeat a VBG, repeat magnesium, repeat phosphorus, and repeat lipase to help determine if we should start the patient on insulin and dextrose drip at the same time. He agrees that the patient should be admitted to the ICU. [facility] hospitalist Dr. Hinkle will be notified. 2020: Spoke with [facility] who stated they will have the beater lead call me back. 2031: Dr. Mckeon recommends another amp of bicarb. 2045: Discussed with [facility] toxicology Dr. Jason. 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 He states that the does not need to be a necessary Jardiance overdose but it could be a physiological insult which caused the Jardiance levels to accumulate in her body and cause the euglycemic DKA. I did mention the recent skin infection which she has been treated for and he said that could cause it. He states that it is not likely Metformin associated metabolic lactic acidosis as the patient has a normal lactic acid level and a minimally elevated creatinine level. Dr. Davis recommends repeat VBG in 2 hours and if it is not significant improved to then start insulin drip at 0.1 units/kg/h and D5 half-normal saline concurrently. He does not recommend against further administration of sodium bicarb boluses at this time or bicarb drip. 2133: Vital signs stable. Repeat labs showed a CO2 of 6 and anion gap of 20. Serum glucose 169. Discussed with Dr. Mckeon he recommends starting the insulin drip at this time he also recommends starting D5 half-normal saline given the low bicarb and high hydrate beta hydroxybutyrate. Beta hydroxybutyrate was 100. Dr. Mckeon recommends given the D5 half-normal saline for 15 minutes and then starting the insulin drip at 0.1 units/kg/h with no bolus. He recommends keeping the serum glucose between 200-250 and having every 4 hour BMPs. 2147: Patient is to be admitted to [facility] Dr. Amin has been notified and states he will place admission orders to the ICU. Accuchecks will be conducted q30 mins. Impression & Plan DKA (diabetic ketoacidoses), BERNARDA (acute kidney injury) Discharge Plan Visit Data Chief Complaint: Illness Stated Complaint: DEHYDRATED ED Provider: Jesus Veloz Discharge Problem: DKA (diabetic ketoacidoses), BERNARDA (acute kidney injury) Patient Disposition: Admitted As Inpatient Forms Stand Alone Forms: [facility] Prescriptions Prescriptions: No Action citalopram 10 mg tablet 10 mg PO HS RF: 0 metformin 850 mg tablet 850 mg PO TIDM RF: 0 cyanocobalamin (vitamin B-12) [Vitamin B-12] 500 mcg Tablet 500 mcg PO QAM RF: 0 Premarin 0.625 mg tablet 0.625 mg PO QAM RF: 0 lisinopril 2.5 mg tablet 2.5 mg PO QAM RF: 0 Jardiance 25 mg tablet 25 mg PO QAM RF: 0 Ozempic 1 mg/dose (2 mg/1.5 mL) pen injector 2 mg SUBCUT WK RF: 0 ibuprofen [Advil] 200 mg Tablet 400 mg PO Q6H PRN (Reason: Pain) RF: 0 Referrals Referrals: Rosalino Morgan MD [Primary Care Provider] - Discharge Problem: DKA (diabetic ketoacidoses) Qualifiers: Diabetes mellitus type: other specified (including ANGELA) Diabetes mellitus complication detail: without coma Qualified Code(s): E13.10 - Other specified diabetes mellitus with ketoacidosis without coma
[2020-03-06] MEDS ORDERED: SODIUM BICARB 8.4% INJ 50 MEQ/50 ML SYR IV STA ×2 (19:44→20:33)
[2020-03-06 19:50] LABS: Acetaminophen < 2 ug/ml (10-30); Salicylate 2.9 mg/dl (2.8-20)
[2020-03-06] MEDS ORDERED: ACETAMINOPHEN 1000 MG/100 ML IV IV STA (19:50)
[2020-03-06] MEDS ORDERED: SODIUM CHLORIDE 0.9% 1000ML 1,000 ML IV SCH (20:15)
[2020-03-06] MEDS ORDERED: DEXTROSE 5% IV ONE (20:30)
[2020-03-06] MEDS ORDERED: FOMEPIZOLE IV ONE (20:30)
[2020-03-06 20:41] LABS: Base Excess VBG -18.7 mEq/L; Oxygen Saturation VBG 98.8 %; pH VBG 7.22 (7.36-7.41)
[2020-03-06 21:14] LABS: BUN Creatinine Ratio 16.2 (10-20); Calcium 9.5 mg/dl (8.5-10.1); Creatinine Clr Calc Pharmacy 48.8 ml/min; Est GFR (African American) 63.6; Est GFR (Non-African American) 54.9; Magnesium 1.8 mg/dl (1.8-2.4); Phosphorus 2.6 mg/dl (2.5-4.9); Potassium 4.7 mmol/L (3.5-5.1)
[2020-03-06 21:23] LABS: Beta-Hydroxybutyrate 100.27 mg/dl (0.2-2.81)
[2020-03-06] MEDS ORDERED: GLUCAGON FOR INJ 1 MG VIAL SQ PRN (21:24)
[2020-03-06] MEDS ORDERED: ED DKA INSULIN DRIP ONE (21:24)
[2020-03-06] MEDS ORDERED: CARBOHYDRATES FOR HYPOGLYCEMIA PO PRN (21:24)
[2020-03-06] MEDS ORDERED: DEXTROSE 50% 50 ML SYRINGE IV PRN (21:24)
[2020-03-06] MEDS ORDERED: GLUCOSE 40% GEL 15 GM TUBE PO PRN (21:24)
[2020-03-06] MEDS ORDERED: GLUCOSE 10 TABS/TUBE PO PRN (21:24)
[2020-03-06] MEDS ORDERED: D5W AND 1/2NSS 1,000 ML IV SCH (21:30)
[2020-03-06] MEDS ORDERED: INSULIN REGULAR 250 UNITS in SODIUM CHLORIDE 0.9% 247.5 ML IV SCH (21:30)
[2020-03-06] MEDS ORDERED: MAGNESIUM SULFATE / D5W 1 GM/100 ML BAG IV ONE (21:56)
[2020-03-06] MEDS ORDERED: D5W AND LACTATED RINGERS 1,000 ML IV SCH (22:15)
[2020-03-06] MEDS ORDERED: DOXYCYCLINE HYCLATE 100 MG in DEXTROSE 5% 100 ML IV STA (23:04)
[2020-03-06] MEDS ORDERED: HYDROmorphone INJ 0.5 MG/0.5 ML SYR IV PRN (23:05)
--- NOTE | 2020-03-06 23:08 | History & Physical Report ---
Date of Service March 06, 2020 Assessment & Plan (1) Metabolic acidosis: AGMA Possible euglycemic DKA secondary to SGLT2 inhibitor (Jardiance) home Rx hx DM2 on oral medications, suboptimal control as of recent outpatient hemoglobin A1c of 11.07 January 2020 mood disorder at baseline RLE melanoma status post recent surgery Postop wound infection, some improvement with recent outpatient Keflex course Possible sepsis ICU Management of metabolic acidosis as per plastic welding machine operator (ER provider already in touch with Dr. Mckeon.) Add Jardiance to allergy/ADR list for now. Pharmacy glycemic control consult (ISS BG goal 1 40-1 80), update hemoglobin A1c Cultures, doxycycline for possible postop RLE wound infection DVT prophylaxis with Lovenox subcu Full code Text document was generated using [employer] voice recognition software. It may contain grammatical or spelling errors. Kindly contact undersigned for clarification of any documentation item in question. History of Present Illness Chief Complaint: Abdominal pain, nausea, vomiting Primary Care Provider: Dr. Yoselin Morgan History obtained from patient, family, and records. Medical history significant for DM2 on oral medications, hyperlipidemia, mood disorder, melanoma status post surgery, cervical intraepithelial neoplasia as per records, GERD. Last confinement 2015 for developing DKA. 3 weeks ago, patient underwent wide local excision of melanoma right lower extremity (popliteal fossa) and right groin node biopsy at [facility] same-day surgery. Last week, patient noted right popliteal fossa postop pain, redness, and drainage. Keflex course prescribed for infected incision by PCP 2 days ago. Some improvement in swelling as per patient. 2 days history of achy abdominal pain nausea, vomiting symptoms. No diarrhea. Poor appetite. No chest pain, no S OB. No recent COVID-19 contacts although patient employed at [employer]. Patient denies ethanol/ethylene glycol/methanol intake. Denies unusual stress at home At the ER, anion gap metabolic acidosis, osmolar gap, hyperglycemia in the 200s noted on blood work. Fomepizole administered for possible ethylene glycol/methanol poisoning following Toxicology recommendations. IV insulin, D5 IV fluid later initiated for possible euglycemic DKA secondary to patient's Jardiance home Rx following Toxicology recommendations. 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 Allergies Allergy/AdvReac Type Severity Reaction Status Date / Time codeine Allergy Severe HIVES,SOB Verified 03/06/20 20:01 adhesive Allergy Intermediate RED,ITCHY,H Verified 03/06/20 20:01 BINA Sulfa (Sulfonamide Allergy Intermediate "SULFA Verified 03/06/20 20:01 Antibiotics) DRUGS": RASH AND HIVES salicylates Allergy Unknown PT Verified 03/06/20 20:01 STORAGE POLE DISEASE empagliflozin AdvReac Intermediate poss Verified 03/06/20 23:05 [From Jardiance] euglycemic dka morphine AdvReac Intermediate EXTREME Verified 03/06/20 20:01 NAUSEA AND VOMITING Home Medications Home Medications Medication Instructions Recorded Confirmed Type citalopram 10 mg PO HS 03/06/20 03/06/20 History conjugated estrogens [Premarin] 0.625 mg PO QAM 03/06/20 03/06/20 History cyanocobalamin (vitamin B-12) 500 mcg PO QAM 03/06/20 03/06/20 History [Vitamin B-12] empagliflozin [Jardiance] 25 mg PO QAM 03/06/20 03/06/20 History ibuprofen [Advil] 400 mg PO Q6H PRN 03/06/20 03/06/20 History lisinopril 2.5 mg PO QAM 03/06/20 03/06/20 History metformin 850 mg PO TIDM 03/06/20 03/06/20 History semaglutide [Ozempic] 2 mg SUBCUT WK 03/06/20 03/06/20 History Past Med/Surg History Medical History (Updated 03/07/20 @ 02:23 by ADA Adair) Diabetes Diabetes with ketoacidosis Melanoma Surgical History (Updated 03/06/20 @ 20:33 by Jesus Veloz) Hx of melanoma excision Social History Smoking Status: Never smoker Hx Alcohol Use: Yes Alcohol type: wine Hx Substance Use: No Preferred Language: [place] Communication Ability: Effective Supply Aide Required: No Beliefs That Will Affect Care: None Current Living Situation: Spouse and Family Other Information That Helps Us Care for You: No Feels Safe at Home: Yes Safety Concerns: Feels Safe At This Time Assistive Devices: Glasses Review of Systems Review of Systems: As per HPI, all 10 systems reviewed, all other ROS negative Physical Exam Physical Exam: GENERAL: uncomfortable, pleasant, no respiratory distress SKIN: Normal color, warm HEENT: [place] palpebral conjunctivae, no ptosis, dry buccal mucosa NECK : Supple, no tenderness CHEST : CTA, no tenderness HEART : Tachycardic, no obvious murmurs ABDOMEN: Some distention, nontender EXTREMITIES : No LE swelling/tenderness, well coaptated sutures over postop site right popliteal fossa with no induration or drainage appreciated, no other conspicuous deformities noted NEUROLOGIC : Coherent, no facial asymmetry, no other gross focality Results & Data Results & Data ([facility]) Vital Signs (Past 12 Hours) Vital Signs Temp Pulse Pulse Resp BP Pulse Ox 03/06/20 18:40 129 H 18 99 03/06/20 18:29 95 03/06/20 17:14 36.5 C 148 H 18 114/69 99 Laboratory Results Laboratory Results WBC 16.31 K/uL (4.8-10.8) H 03/06/20 17:30 RBC 5.71 M/uL (4.2-5.4) H 03/06/20 17:30 Hgb 17.0 g/dL (12.0-16.0) H 03/06/20 17:30 Hct 55.4 % (37-47) H 03/06/20 17:30 MCV 97.0 fL (80-100) 03/06/20 17:30 MCH 29.8 pg (25-34) 03/06/20 17:30 MCHC 30.7 g/dL (32-36) L 03/06/20 17:30 RDW Std Deviation 52.3 fL (36.4-46.3) H 03/06/20 17:30 RDW Coeff of Maribel 14.6 % (11.5-14.5) H 03/06/20 17:30 Plt Count 354 K/uL (130-400) 03/06/20 17:30 MPV 10.5 fL (7.4-10.4) H 03/06/20 17:30 Immature Gran % (Auto) 0.7 % 03/06/20 17:30 Neut % (Auto) 74.8 % 03/06/20 17:30 Lymph % (Auto) 16.9 % 03/06/20 17:30 [place] % (Auto) 7.5 % 03/06/20 17:30 Eos % (Auto) 0.0 % 03/06/20 17:30 Baso % (Auto) 0.1 % 03/06/20 17:30 Neut # (Auto) 12.20 K/uL (1.4-6.5) H 03/06/20 17:30 Lymph # (Auto) 2.76 K/uL (1.2-3.4) 03/06/20 17:30 [place] # (Auto) 1.22 K/uL (0.11-0.59) H 03/06/20 17:30 Eos # (Auto) 0.00 K/uL (0-0.5) 03/06/20 17:30 Baso # (Auto) 0.02 K/uL (0-0.2) 03/06/20 17:30 Immature Gran # (Auto) 0.11 K/uL (0.00-0.02) H 03/06/20: VBG pH 7.22 (7.36-7.41) L 03/06/20 20: VBG pCO2 16 mmHg (38-50) L 03/06/20 20: VBG pO2 145 mmHg 03/06/20: VBG HCO3 7 mmol/L 03/06/20: VBG O2 Saturation 98.8 % 03/06/20: VBG Base Excess -18.7 mEq/L 03/06/20: Barometric Pressure 742.1 mm/Hg 03/06/20: Sodium 143 mmol/L (136-145) 03/06/20: Potassium 4.7 mmol/L (3.5-5.1) 03/06/20: Chloride 117 mmol/L (98-107) H 03/06/20: Carbon Dioxide 6 mmol/L (21-32) L* 03/06/20: Anion Gap 20.0 (3-11) H 03/06/20: BUN 18 mg/dl (7-18) 03/06/20: Creatinine 1.12 mg/dl (0.6-1.2) D 03/06/20: Est Cr Clr Drug Dosing 48.8 ml/min 03/06/20 20:29 Est GFR ( Amer) 63.6 03/06/20 20: Est GFR (Non-Af Amer) 54.9 03/06/20 20: BUN/Creatinine Ratio 16.2 (10-20) 03/06/20 20:29 Glucose 169 mg/dl (70-99) H 03/06/20 20:29 POC Glucose 252 mg/dl (70-99) H 03/06/20 22:43 Osmolality 317 mOsm/kg (280-300) H 03/06/20 19:17 Lactate 1.4 mmol/L (0.4-2.0) 03/06/20 18:19 Calcium 9.5 mg/dl (8.5-10.1) 03/06/20 20: Phosphorus 2.6 mg/dl (2.5-4.9) 03/06/20 20: Magnesium 1.8 mg/dl (1.8-2.4) 03/06/20 20: Total Bilirubin 0.3 mg/dl (0.2-1) 03/06/20 17:30 AST 10 U/L (15-37) L 03/06/20 17:30 ALT 19 U/L (12-78) 03/06/20 17:30 Alkaline Phosphatase 102 U/L (45-117) 03/06/20 17:30 Total Protein 9.0 gm/dl (6.4-8.2) H 03/06/20 17:30 Albumin 4.2 gm/dl (3.4-5.0) 03/06/20 17:30 Globulin 4.8 gm/dl (2.5-4.0) H 03/06/20 17:30 Albumin/Globulin Ratio 0.9 (0.9-2) 03/06/20 17:30 Lipase 110 U/L (73-393) 03/06/20 20: Beta-Hydroxybutyric Acd 100.27 mg/dl (0.2-2.81) H 03/06/20 20:29 Urine Color Yellow 03/06/20 18:38 Urine Appearance Cloudy (Clear) A 03/06/20 18:38 Urine pH 5.0 (4.5-7.5) 03/06/20 18:38 Ur Specific [place] 1.026 (1.000-1.030) 03/06/20 18:38 Urine Protein 2+ (Negative) H 03/06/20 18:38 Urine Glucose (UA) 3+ (Negative) H 03/06/20 18:38 Urine Ketones 4+ (Negative) H 03/06/20 18:38 Urine Blood Negative (Negative) 03/06/20 18:38 Urine Nitrite Negative (Negative) 03/06/20 18:38 Urine Bilirubin Negative (Negative) 03/06/20 18:38 Urine Urobilinogen Negative (Negative) 03/06/20 18:38 Ur Leukocyte Esterase Negative (Negative) 03/06/20 18:38 Urine WBC (Auto) 1-5 /hpf (0-5) 03/06/20 18:38 Urine RBC (Auto) 0-4 /hpf (0-4) 03/06/20 18:38 U Hyaline Cast (Auto) 10-30 /lpf (0-5) H 03/06/20 18:38 U Epithel Cells (Auto) >30 /lpf (0-5) H 03/06/20 18:38 Urine Bacteria (Auto) Negative (Negative) 03/06/20 18:38 Urine Mucus Present (None Prsent) A 03/06/20 18:38 Urine Osmolality 530 mOsm/kg (500-800) 03/06/20 18:38 Salicylates 2.9 mg/dl (2.8-20) 03/06/20 19:17 Acetaminophen < 2 ug/ml (10-30) L 03/06/20 19:17 Ethyl Alcohol mg/dL < 3.0 mg/dl (0-3) 03/06/20 19:[address] abdomen pelvis: 1. No evidence of bowel obstruction. No evidence of free air 2. No renal, ureteral, or bladder calculi identified 3. No acute inflammatory changes 4. Partially visualized 24 mm cystic lesion within the right inferior inguinal region. This is of uncertain etiology. Clinical correlation advocated. Chest x-ray : No active disease in the chest. EKG as per my interpretation : Rate 135, sinus tachycardia, normal axis, no ischemia Code Status & VTE Plan VTE Prophylaxis Plan VTE Prophylaxis will be ordered: Yes
[2020-03-06 23:51] LABS: Amphetamines+Metham, Urine Neg (Neg); Barbiturates, Urine Neg (Neg); Benzodiazepine, Urine Neg (Neg); Cocaine, Urine Neg (Neg); MDMA (Ecstacy), Urine Neg (Neg); Methadone, Urine Neg (Neg); Opiate, Urine Neg (Neg); Phencyclidine, Urine Neg (Neg)
--- NOTE | 2020-03-07 00:05 | Critical Care Consultation ---
Date of Consultation March 07, 2020 Assessment & Plan (1) Admitted to intensive care unit: Reason Critically Ill: 54-year-old female with history diabetes presents to the ICU with severe euglycemic DKA, on DKA protocol. Neuro - CAM ICU: Negative Cardiac - No history of cardiac disease, mild sinus tach on monitor and normotensive Will monitor on continuous telemetry while in ICU Respiratory - No history of pulmonary disease or tobacco abuse, maintaining sats on room air Tachypnea improving with correction of metabolic acidosis, VBG consistent with compensated metabolic acidosis Continuous monitoring on pulse ox GI - N.p.o. for now, will advance to diabetic diet when appropriate LFTs within normal limits Lipase within normal limits RENAL/LYTES - AKIinitial creatinine 1.6, most likely secondary to severe dehydration and DKA -Improved on second BMP following 2 L bolus, will continue to monitor and continue with fluid resuscitation Metabolic acidosispatient presented with initial pH of 7.06, now showing improvement with fluid resuscitation -Patient denied ingestion, suicide attempts, or misuse of oral diabetes medication -Normal albumin and protein levels, and patient does not appear catatonic -Anion gap of 24 and bicarb 7, serum osmole 317 -Salicylates and ethylene alcohol negative, BUN 21, lactate within normal limits -UA positive ketones -BHA elevated at 100, discussed with poison control and most likely euglycemic DKA with use of Jardiance which may be associated with recent nausea and vomiting/infection -Patient was initially bolused 2 L normal saline and now on D5 half- normal, and started on insulin drip -Last BMP and VBG show significant improvement in acidosis, will continue with DKA protocol -Monitoring every 4 hour BMPs and VBG's - Strict I's and O's ENDO - DM type IIfollowing DKA protocol with insulin drip and IV fluid resuscitation as described above -We will transition to sliding scale when appropriate, hold oral diabetes medications for now HEME - Elevated hemoglobin as CBC hemoconcentrated as patient severely dehydrated with initial labs, will monitor routine CBCs ID - Patient reports 2 days of Keflex for infected surgical wound behind the right knee No fevers, lactate negative, pro Klaus negative, mild leukocytosis which may be reactionary to DKA and patient also hemoconcentrated on CBC Started on IV doxycycline for surgical wound coverage, will continue for now LINES/IV ACCESS - Peripheral IVs DVT PROPHYLAXIS - SCDs, Lovenox I have personally spent 38 minutes of critical care time in the direct management of this patient. This is a life/limb threatening event. This includes time spent evaluating patient, direct bedside care, chart review, placing orders, interpretation of diagnostic studies, discussion with consultants, patient, and family members, as well as other required patient management activities. This time is exclusive of all separately billable procedures, and teaching time and separate from and in addition to any other critical care service time. Thank you for allowing us to participate in the care of this patient. Please refer to my attending physician's documentation for any further recommendations. (2) BERNARDA (acute kidney injury): (3) DKA (diabetic ketoacidoses): (4) Melanoma: (5) Metabolic acidosis: Supervising Physician Co-Signing Physician Notes I discussed patient's care with Abdulkadir aBnuelos, and agree with findings and plan as documented in the note. 54-year-old female past medical history of diabetes on Jardiance came in with high anion gap metabolic acidosis nausea vomiting and abdominal pain. Serum osmolality was here and 70 and there was osmolar gap. Lactic acidosis was normal. I had discussed this case with Dr. Veloz from the ED as well and advised him to do stat beta hydroxybutyric acid and start the patient on insulin drip with D5 half. Toxic ingestion of other alcohol is also a possibility although it is low in probability given the lactic acid is normal. Dose of fomepizole should be given irrespective given there is little bit likelihood of toxic ingestion as well. Salicylates and Tylenol level negative. History of Present Illness History of Present Illness Patient is a 54-year-old female with history of diabetes, this evening who presented to the emergency department earlier with symptoms of nausea and vomiting x2 days, headache, and mild shortness of breath. Patient reports that she had a recent removal of melanoma on her right knee that had become infected and she was started on Keflex on . Subsequently patient began having nausea and vomiting the following day, which she believes is related to the Keflex. BMP revealed the patient had a anion gap of 20, and VBG showed pH of 7.06. She was given 1 amp of bicarb in the emergency department. Blood glucose was mildly elevated, and UA did show positive ketones. Lactate within normal limits, salicylates negative, ethyl alcohol negative, BUN 30. Methylene glycol level pending. BHA was significantly elevated at 100. The patient states that she was taking her Jardiance and Metformin as prescribed, and denied intentional overdose or attempts to harm with ingestion. Case was discussed with the ED physician and k 9 handler/ deputy, Dr. Mckeon, along with poison control physician. Determined that patient most likely has euglycemic DKA associated with Jardiance which was most likely brought on by nausea/vomiting/infection. Was started on insulin drip and D5 half-normal in the emergency department. Patient to be admitted to ICU at this time for further management. On exam, patient is alert and oriented and does not appear to be in acute distress. She reports recent headache and dizziness x2 days and nausea and vomiting. She states that she has been breathing at a faster rate than normal but is nonlabored. She she also reports mild pain at the sites of her surgical incision behind her right knee, which she says has significantly improved in the past few days. She denies fevers, sore throat, cough, congestion, chest pain, palpitations, abdominal pain, diarrhea, or changes in urinary patterns. Allergies Allergy/AdvReac Type Severity Reaction Status Date / Time codeine Allergy Severe HIVES,SOB Verified 03/06/20 20:01 adhesive Allergy Intermediate RED,ITCHY,H Verified 03/06/20 20:01 BINA Sulfa (Sulfonamide Allergy Intermediate "SULFA Verified 03/06/20 20:01 Antibiotics) DRUGS": RASH AND HIVES salicylates Allergy Unknown PT Verified 03/06/20 20:01 STORAGE POLE DISEASE empagliflozin AdvReac Intermediate poss Verified 03/06/20 23:05 [From Jardiance] euglycemic dka morphine AdvReac Intermediate EXTREME Verified 03/06/20 20:01 NAUSEA AND VOMITING Home Medications Home Medications Medication Instructions Recorded Confirmed Type citalopram 10 mg PO HS 03/06/20 03/06/20 History conjugated estrogens [Premarin] 0.625 mg PO QAM 03/06/20 03/06/20 History cyanocobalamin (vitamin B-12) 500 mcg PO QAM 03/06/20 03/06/20 History [Vitamin B-12] empagliflozin [Jardiance] 25 mg PO QAM 03/06/20 03/06/20 History ibuprofen [Advil] 400 mg PO Q6H PRN 03/06/20 03/06/20 History lisinopril 2.5 mg PO QAM 03/06/20 03/06/20 History metformin 850 mg PO TIDM 03/06/20 03/06/20 History semaglutide [Ozempic] 2 mg SUBCUT WK 03/06/20 03/06/20 History Patient History Medical History (Updated 03/07/20 @ 02:23 by ADA Adair) Diabetes Diabetes with ketoacidosis Melanoma Surgical History (Updated 03/06/20 @ 20:33 by Jesus Veloz) Hx of melanoma excision Social History Smoking Status: Never smoker Hx Alcohol Use: Yes Alcohol type: wine Hx Substance Use: No Preferred Language: Hungarian Communication Ability: Effective Reinsurance Claim Analyst Required: No Beliefs That Will Affect Care: None Current Living Situation: Spouse and Family Other Information That Helps Us Care for You: No Feels Safe at Home: Yes Safety Concerns: Feels Safe At This Time Assistive Devices: Glasses Review of Systems Review of Systems: All systems reviewed & are unremarkable except as noted in HPI & below Physical Exam Constitutional: cooperative and comfortable Eyes: PERRL, conjunctivae normal, anicteric sclerae ENMT: external ear and nose normal, oropharynx normal Neck: trachea midline, no thyromegaly Respiratory: normal respiratory effort, lungs clear to auscultation Cardiovascular: RRR, no murmur, no edema Heart Sounds: normal S1 and normal S2 Vessels: no JVD Extremities: normal capillary refill; no edema Gastrointestinal (Abdomen): normal bowel sounds, soft, nontender, no hepatosplenomegaly Musculoskeletal: no cyanosis or clubbing, extremities motor strength 5/5 Skin: no rashes, warm and dry Approximated incision behind the patient's right knee, sutures intact and appears to be healing well without erythema or swelling Neurologic: PERRL, EOMI, accommodation nl, no face palsy, no dysarthria Psychiatric: A+Ox3, euthymic affect Results & Data Results & Data ([facility]) Vital Signs (Past 12 Hours) Vital Signs Temp Pulse Pulse Resp BP Pulse Ox 03/06/20 21:01 112 H 23 03/06/20 21:00 109 H 19 115/79 03/06/20 20:31 117 H 15 03/06/20 20:30 116 H 18 106/82 11/07/20 20:00 122 H 18 123/77 03/06/20 19:31 123 H 15 03/06/20 19:30 121 H 15 127/79 03/06/20 19:05 126 H 16 03/06/20 19:03 128 H 17 113/70 03/06/20 18:40 129 H 18 99 03/06/20 18:29 95 03/06/20 17:14 36.5 C 148 H 18 114/69 99 Coding Level of Care Code Critical Care 1st 30-74 mins Diagnoses Admitted to intensive care unit Z78.9 BERNARDA (acute kidney injury) N17.9 DKA (diabetic ketoacidoses) E13.10 Diabetes mellitus complication detail: without coma Diabetes mellitus type: other specified (including ANGELA) Melanoma C43.9 Metabolic acidosis E87.2 (1) DKA (diabetic ketoacidoses) Diabetes mellitus complication detail: without coma Diabetes mellitus type: other specified (including ANGELA) Qualified Code(s): E13.10 - Other specified diabetes mellitus with ketoacidosis without coma
[2020-03-07] MEDS ORDERED: PROMETHAZINE HCL 6.25 MG in SODIUM CHLORIDE 0.9% 50 ML IV PRN (00:16)
[2020-03-07] MEDS ORDERED: ICU PROTOCOL FOR HYPERGLYCEMIA PRN (00:49)
[2020-03-07] MEDS ORDERED: INSULIN REGULAR 250 UNITS in SODIUM CHLORIDE 0.9% 247.5 ML IV SCH (01:00)
[2020-03-07 01:03] LABS: Base Excess VBG -9.1 mEq/L; HCO3 VBG 16 mmol/L; Oxygen Saturation VBG < 60.0 %; PCO2 VBG 34 mmHg (38-50); PO2 VBG 20 mmHg
[2020-03-07 01:08] LABS: BUN Creatinine Ratio 15.3 (10-20); Calcium 8.7 mg/dl (8.5-10.1); Creatinine Clr Calc Pharmacy 48.7 ml/min; Est GFR (Non-African American) 52.6; Potassium 3.8 mmol/L (3.5-5.1)
[2020-03-07 01:16] LABS: Thyroid Stimulating Hormone 0.612 uIu/ml (0.300-4.500)
[2020-03-07] MEDS: D5W AND 1/2NSS + 20MEQ KCL 20 MEQ/1,000 ML BAG IV SCH ×2 (01:23→06:34)
[2020-03-07] MEDS ORDERED: PHARMACY GLYCEMIC MGMT CONSULT PRN (01:27)
[2020-03-07 05:41] LABS: Basophils # (auto) 0.01 K/uL (0-0.2); Basophils % (auto) 0.1 %; Eosinophils # (auto) 0.03 K/uL (0-0.5); Eosinophils % (auto) 0.4 %; Hematocrit (blood only) 41.7 % (37-47); Hemoglobin 13.5 g/dL (12.0-16.0); Immature Granulocytes # (auto) 0.02 K/uL (0.00-0.02); Immature Granulocytes % (auto) 0.2 %; Lymphocytes # (auto) 1.91 K/uL (1.2-3.4); Lymphocytes % (auto) 22.3 %; Mean Corpuscular Hemoglobin 29.8 pg (25-34); Mean Corpuscular Hgb Conc 32.4 g/dL (32-36); Mean Corpuscular Volume 92.1 fL (80-100); Mean Platelet Volume 9.9 fL (7.4-10.4); Monocytes # (auto) 0.74 K/uL (0.11-0.59); Monocytes % (auto) 8.6 %; Neutrophils # (auto) 5.85 K/uL (1.4-6.5); Neutrophils % (auto) 68.4 %; Platelet Count 225 K/uL (130-400); RDW Coefficient of Variation 14.4 % (11.5-14.5); RDW Standard Deviation 48.6 fL (36.4-46.3); Red Blood Count 4.53 M/uL (4.2-5.4); White Blood Count 8.56 K/uL (4.8-10.8)
[2020-03-07 05:49] LABS: Calcium 8.7 mg/dl (8.5-10.1); Creatinine Clr Calc Pharmacy 53.8 ml/min; Est GFR (African American) 68.8; Est GFR (Non-African American) 59.3; Magnesium 1.9 mg/dl (1.8-2.4); Potassium 3.8 mmol/L (3.5-5.1)
[2020-03-07] MEDS ORDERED: MAGNESIUM SULFATE / D5W 1 GM/100 ML BAG IV ONE (05:57)
[2020-03-07 06:13] LABS: Beta-Hydroxybutyrate 19.6 mg/dl (0.2-2.81); Phosphorus 0.9 mg/dl (2.5-4.9)
[2020-03-07] MEDS ORDERED: POTASSIUM PHOS 3 MMOL/1 ML INFUSION IV STA ×2 (06:19→14:23)
[2020-03-07] MEDS ORDERED: POTASSIUM PHOSPHATE 15 MMOL in SODIUM CHLORIDE 0.9% 250 ML IV ONE (07:00)
[2020-03-07] MEDS ORDERED: INSULIN ASPART 100 UNITS/ML 3 ML PEN SC SCH ×2 (07:30)
[2020-03-07] MEDS: ESTROGENS, CONJUGATED 0.625 MG TAB PO SCH (07:57)
[2020-03-07] MEDS: DOXYCYCLINE HYCLATE 100 MG in DEXTROSE 5% 100 ML IV SCH ×2 (07:57→20:32)
[2020-03-07] MEDS: CYANOCOBALAMIN 500 MCG TABLET (VITAMIN B-12) PO SCH (07:57)
[2020-03-07] MEDS: ENOXAPARIN INJ 30 MG/0.3 ML SYR SQ SCH (07:58)
--- NOTE | 2020-03-07 08:16 | XRay Report ---
XR chest 1V portable CLINICAL HISTORY: renal failure COMPARISON STUDY: 09/05/2005 FINDINGS: The cardiac and mediastinal contours are normal. There is no evidence of focal pulmonary co nsolidation. There is no evidence of failure. No pleural effusions are visualized.[There is a thoraci c scoliosis. IMPRESSION: No active disease in the chest. ACT 112: Negative or not required by law. Electronically signed by: Richie Carrasco M.D. 03/07/2020 8:15 AM
[2020-03-07] MEDS ORDERED: D5W AND 1/2NSS 1,000 ML IV SCH (08:30)
[2020-03-07] MEDS: traMADol HCL 50 MG TABLET PO PRN ×2 (08:47→21:38)
[2020-03-07] MEDS ORDERED: DOXYCYCLINE HYCLATE 100 MG CAP PO SCH (09:00)
[2020-03-07] MEDS ORDERED: INSULIN GLARGINE SOLOSTAR 100 UNITS/ML 3 ML PEN SC ONE (09:15)
[2020-03-07] MEDS: INSULIN ASPART 100 UNITS/ML 3 ML PEN SC SCH ×4 (09:36→20:38)
--- NOTE | 2020-03-07 09:48 | Pharmacy Report ---
Glycemic Control Consultation - Date of Service March 07, 2020 - Scope Scope: Glycemic Pharmacist consulted for glycemic control and to write orders per [facility] inpatient glycemic control protocol. - Objective Weight: 58.4 kg Accuchecks BSG (last 24hrs): 03/06/20 03/06/20 03/06/20 17:30 17:34 18:21 Glucose 213 H POC Glucose 183 H 207 H 03/06/20 03/06/20 03/06/20 20:29 21:57 22:43 Glucose 169 H POC Glucose 281 H 252 H 03/07/20 03/07/20 03/07/20 00:40 00:51 02:11 Glucose 137 H POC Glucose 148 H 126 H 03/07/20 03/07/20 03/07/20 03:18 04:13 05:11 Glucose 144 H POC Glucose 131 H 130 H 03/07/20 03/07/20 03/07/20 05:18 06:14 07:40 Glucose POC Glucose 136 H 153 H 126 H 03/07/20 08:29 Glucose POC Glucose 124 H Laboratory Data (last 24hrs): 03/06/20 03/06/20 03/06/20 17:30 19:17 20:29 Potassium 5.0 4.7 Carbon Dioxide 7 L* 6 L* Anion Gap 24.0 H 20.0 H Creatinine 1.65 H 1.12 D Est Cr Clr Drug Dosing 33.1 48.8 Osmolality 317 H Beta-Hydroxybutyric Acd 100.27 H 03/07/20 03/07/20 03/07/20 00:40 05:11 05:11 Potassium 3.8 D 3.8 Carbon Dioxide 18 L 21 Anion Gap 10.0 5.0 Creatinine 1.16 1.05 Est Cr Clr Drug Dosing 48.7 53.8 Osmolality 301 H Beta-Hydroxybutyric Acd 19.60 H - Recent Pertinent Medications Outpatient Anti-diabetic Regimen: * Metformin 850mg PO BID * Semaglutide 2mg SQ Weekly * Empagliflozin 25mg PO QAM * A1c = 11.9 % Dec 2019 The patient is currently receiving: * DKA Protocol + IV insulin infusion, currently at 1unit/hr Risk Factors for Insulin Resistance: * Infection: surgical wound behind knee, Doxycycline IV * IVF: D5W1/2NS+K+ @200cc/hr --> decreased to D51/2NS @100cc/hr * Diet: NPO --> Type 2 DM with breakfast - Assessment & Plan Assessment & Plan: ASSESSMENT: * 54 year old female with history of uncontrolled Type 2 DM, in ICU with severe euglycemic DKA, possibly secondary to SGLT2 inhibitor (Jardiance) home Rx. * RLE melanoma status post recent surgery, postop wound infection behind the knee, some improvement with recent outpatient Keflex course, possible sepsis, on IV Doxycycline as inpatient. * DKA protocol started last night, Insulin drip started at 5.5 units/hr titrated down to 1 unit/hr at this time, labs improved, gap closed, OK to transition to SQ insulin. Starting diet, fluids decreased and to be discontinued with diet starting. * Will begin with one time Lantus dose, overlapping x 3 hours with insulin drip and wt based stress 2 for CF/CR at this time in insulin naive patient. PLAN FOR INPATIENT GLYCEMIC CONTROL: * Holding outpatient oral diabetes medications * DC IV insulin at 1200 * Basal insulin * Lantus 25 units SQ x 1 dose now, further dosing to be determined * Bolus insulin * NovoLog per scale ACHS or Q6hrs while NPO * Goal Range: Low 120 mg/dL - High 150 mg/dL * Correction Factor: 30 mg/dL/unit * Nutritional / Prandial insulin per carb ratio of 1 unit per 12 grams CHO consumed * Please note that the plan above was derived based on current level of insulin resistance and hospital stress. These recommendations are appropriate for inpatient admission only. Plan of care upon discharge will need to be reassessed to avoid potential outpatient hypo/hyperglycemia. Thank you.
[2020-03-07 10:43] LABS: BUN Creatinine Ratio 12.2 (10-20); Calcium 8.8 mg/dl (8.5-10.1); Creatinine Clr Calc Pharmacy 59.5 ml/min; Est GFR (African American) 77.6; Magnesium 2.1 mg/dl (1.8-2.4); Potassium 3.6 mmol/L (3.5-5.1)
--- NOTE | 2020-03-07 11:07 | Critical Care Progress Note ---
Date of Service March 07, 2020 Assessment & Plan (1) Admitted to intensive care unit: Reason Critically Ill: 54-year-old female with history diabetes presents to the ICU with severe euglycemic DKA, on DKA protocol. Jardiance induced Euglycemic DKA --DKA Normoglycemic(Euglycemic) usually seen in SGLT inhibitors. Patient was on Jardiance which is likely the cause Continue with insulin drip until anion gap closes Decreasing blood glucose no more than 100 in an hour Replace potassium IV when potassium level between 3.3-5.3 BMP every 4 hours Continue with IV fluids Measured osmolality 317, calculated osmolality 295, osmolar gap 22 with normal lactate Salicylate negative, Tylenol negative, ethanol negative Beta hydroxybutyric acid 100 --> 20 --BERNARDA Prerenal Secondary to dehydration Improving Monitor BUNs/creatinine Avoid nephrotoxic medication --Diabetes type 2 We will start insulin while she is in the hospital subcu --Hypokalemia with hypophosphatemia Being replaced --Right lower extremity melanoma status post surgery Incision site of the right popliteal fossa clean Sutures in place --Prophylaxis VTE: Lovenox GI: None Lines: Peripheral Diet: Resume diabetic diet once insulin is bridged Plan: In/out: +4.5 L, urine output not accurate as patient does not have Cobb Patient's anion gap has closed. Time to bridge IV insulin to subcu insulin. Start diabetic diet. Antiemetic for nausea Repeat BMP mag Colette at 3 PM I have personally spent 33 minutes of critical care time in the direct management of this patient. This is a life/limb threatening event. This includes time spent evaluating patient, direct bedside care, chart review, placing orders, interpretation of diagnostic studies, discussion with consultants, patient, and family members, as well as other required patient management activities. This time is exclusive of all separately billable procedures, and teaching time and separate from and in addition to any other critical care service time. Please note the above document was generated using voice recognition software. It may contain grammatical, syntax or spelling errors. (2) BERNARDA (acute kidney injury): (3) DKA (diabetic ketoacidoses): (4) Melanoma: (5) Metabolic acidosis: Admission and Anticipated Discharge Date Admission Date: March 06, 2020 Subjective Patient seen and examined at bedside. No acute distress, no adverse events overnight. Complain of mild nausea early in the morning. Denies any abdominal pain. No chest pain, no shortness of breath, no headache, no vomiting On insulin drip and D5 half Review of Systems Review of Systems: All systems reviewed & are unremarkable except as noted in Subjective Physical Exam Physical Exam: Constitutional: No acute distress HEENT: EOMI, PERRLA Respiratory system: Good air entry bilaterally, no wheeze, no rhonchi, no crackles CVS: S1-S2 positive, no murmurs or gallops Abdomen: Soft, nontender, nondistended, positive bowel sounds x4 Extremities: +2 pulses bilaterally radialis/ dorsalis pedis, no cyanosis, no edema, right popliteal fossa sutures in place. No erythema, nontender. Neuro: Awake alert oriented x3 Psych: Normal mood and affect G/U: No Cobb Skin: no rashes, warm and dry Lymphatic: no cervical or axillary lymphadenopathy Results & Data Results & Data ([facility]) Vital Signs (Past 12 Hours) Vital Signs Temp Pulse Resp Pulse Ox 03/07/20 00:17 36.7 C 101 H 22 100 03/07/20 05:11 03/07/20 10:10 Coding Level of Care Code Critical Care 1st 30-74 mins Diagnoses Admitted to intensive care unit Z78.9 BERNARDA (acute kidney injury) N17.9 DKA (diabetic ketoacidoses) E13.10 Diabetes mellitus complication detail: without coma Diabetes mellitus type: other specified (including ANGELA) Melanoma C43.9 Metabolic acidosis E87.2 Time Spent (min) 33 (1) DKA (diabetic ketoacidoses) Diabetes mellitus complication detail: without coma Diabetes mellitus type: other specified (including ANGELA) Qualified Code(s): E13.10 - Other specified diabetes mellitus with ketoacidosis without coma
[2020-03-07] MEDS ORDERED: DC IV INSULIN INFUSION 1 EA DEVI ONE (12:00)
--- NOTE | 2020-03-07 12:31 | Electrocardiogram Report ---
Test Reason : Blood Pressure : / mmHG Vent. Rate : 134 BPM Atrial Rate : 135 BPM P-R Int : 150 ms QRS Dur : 074 ms QT Int : 290 ms P-R-T Axes : 070 054 029 degrees QTc Int : 433 ms Sinus tachycardia Nonspecific T wave abnormality When compared with ECG of 14-DEC-2015 19:12, Nonspecific T wave abnormality, worse in Inferior leads Nonspecific T wave abnormality now evident in Lateral leads Confirmed by Cornelio Blake ([id number]) on 03/07/2020 12:30:30 PM Referred By: REFERRED SELF Confirmed By:Cornelio Blake
[2020-03-07 13:57] LABS: Calcium 8.2 mg/dl (8.5-10.1); Creatinine Clr Calc Pharmacy 58.3 ml/min; Est GFR (African American) 75.7; Est GFR (Non-African American) 65.3; Potassium 3.7 mmol/L (3.5-5.1)
[2020-03-07 14:10] LABS: Phosphorus 1.5 mg/dl (2.5-4.9)
--- NOTE | 2020-03-07 14:36 | Hospitalist Progress Note ---
Date of Service March 07, 2020 Assessment & Plan (1) Metabolic acidosis: Diabetic ketoacidosis Anion gap metabolic acidosis Euglycemic DKA likely secondary to SGLT inhibitors Jardiance held (reports being on Jardiance for many years ) HbA1C:pending Toxicology screen pending Received IV bicarbonate Anion gap closed Insulin drip transitioned to SQ Continue IV fluids Monitor BMP, BGs Advance diet as tolerated Acute kidney injury Likely prerenal secondary to above Continue IV fluids Monitor renal function Avoid nephrotoxic agents as able DM II Last Outpatient HbA1C: 11.9 Dec 2019 Continue Insulin while hospitalized Update HbA1C Mood disorder Stable Continue Celexa RLE melanoma S/P recent surgery Postop wound infection Was on outpatient Keflex course Continue doxycycline empirically Blood cultures pending Leukocytosis resolved Hypophosphatemia Replace electrolytes as needed DVT Px: Lovenox SQ Code Status Full code Disposition Expect to discharge home when medically stable Admission and Anticipated Discharge Date Admission Date: March 06, 2020 Subjective Patient is seen and examined at bedside Nausea, vomiting resolved Denies abdominal pain, chest pain, dyspnea, dizziness Reports back discomfort and mild headache this morning Family at bedside Offers no other complaints Review of Systems Review of Systems: All systems reviewed & are unremarkable except as noted in HPI & below Physical Exam Physical Exam: Physical Exam: Vitals signs as noted above General Appearance:Thin, frail, no apparent distress Head: normocephalic, Atraumatic Eyes: normal inspection, EOMI Neck: supple, Trachea midline Respiratory/Chest: Decreased breath sounds, CTA Cardiovascular: S1, S2, No murmur Abdomen/GI:Soft, Non tender, Bowel sounds present Extremities/Musculoskelatal:normal inspection, no edema, R popliteal fossa--+Sutures Neurologic/Psych:AAOX3, grossly no focal neurological deficits Skin: normal color, warm Results & Data Results & Data ([facility]) Vital Signs (Past 12 Hours) Vital Signs Temp Pulse Pulse Resp BP BP Pulse Ox 03/07/20 13:31 96 H 23 87/40 L 98 03/07/20 13:22 89 15 101/59 L 97 03/07/20 13:00 94 H 16 95 03/07/20 12:30 93 H 16 92/56 L 96 03/07/20 12:00 96 H 16 100 03/07/20 11:53 37.2 C 98 H 20 97/77 L 97 03/07/20 11:00 37.1 C 92 H 16 103/63 98 03/07/20 10:00 36.9 C 88 18 110/68 98 03/07/20 08:00 36.6 C 88 20 95/61 L 99 Laboratory Results Short CBC 03/06/20 03/07/20 Range/Units 17:30 05:11 WBC 16.31 H 8.56 (4.8-10.8) K/uL Hgb 17.0 H 13.5 D (12.0-16.0) g/dL Hct 55.4 H 41.7 (37-47) % Plt Count 354 225 (130-400) K/uL BMP 03/06/20 03/06/20 03/07/20 17:30 20:29 00:40 Sodium 138 143 145 Potassium 5.0 4.7 3.8 D Chloride 107 117 H 117 H Carbon Dioxide 7 L* 6 L* 18 L BUN 21 H 18 18 Creatinine 1.65 H 1.12 D 1.16 Glucose 213 H 169 H 137 H Calcium 10.3 H 9.5 8.7 03/07/20 03/07/20 03/07/20 05:11 10:10 13:21 Sodium 142 140 141 Potassium 3.8 3.6 3.7 Chloride 116 H 113 H 113 H Carbon Dioxide 21 19 L 20 L BUN 15 12 11 Creatinine 1.05 0.95 0.97 Glucose 144 H 133 H 158 H Calcium 8.7 8.8 8.2 L Liver Function 03/06/20 Range/Units 17:30 Total Bilirubin 0.3 (0.2-1) mg/dl AST 10 L (15-37) U/L ALT 19 (12-78) U/L Alkaline Phosphatase 102 (45-117) U/L Albumin 4.2 (3.4-5.0) gm/dl Urine 03/06/20 Range/Units 18:38 Urine Color Yellow Urine Appearance Cloudy A (Clear) Urine pH 5.0 (4.5-7.5) Ur Specific [place] 1.026 (1.000-1.030) Urine Protein 2+ H (Negative) Urine Glucose (UA) 3+ H (Negative)
[2020-03-07] MEDS ORDERED: POTASSIUM PHOSPHATE 30 MMOL in SODIUM CHLORIDE 0.9% 500 ML IV ONE (14:45)
[2020-03-07] MEDS: CITALOPRAM 20 MG TAB PO SCH (20:39)
[2020-03-07] MEDS ORDERED: LACTATED RINGER'S 1,000 ML IV ONE (21:00)
[2020-03-07 21:20] LABS: BUN Creatinine Ratio 10.9 (10-20); Calcium 8.3 mg/dl (8.5-10.1); Creatinine Clr Calc Pharmacy 58.3 ml/min; Est GFR (African American) 75.7; Est GFR (Non-African American) 65.3; Magnesium 1.7 mg/dl (1.8-2.4); Phosphorus 1.6 mg/dl (2.5-4.9); Potassium 3.7 mmol/L (3.5-5.1)
--- NOTE | 2020-03-08 05:55 | Critical Care Progress Note ---
Date of Service March 08, 2020 Assessment & Plan Admission and Anticipated Discharge Date Admission Date: March 06, 2020 Results & Data Results & Data ([facility]) Vital Signs (Past 12 Hours) Vital Signs Temp Pulse Pulse Resp BP BP Pulse Ox 03/08/20 01:05 84 03/08/20 00:39 98 H 03/07/20 22:05 37.1 C 96 H 18 108/75 99 03/07/20 22:00 96 H 03/07/20 20:30 36.8 C 103 H 15 127/77 96 03/07/20 20:00 109 H Pulse Ox 03/08/20 01:05 03/08/20 00:39 03/07/20 22:05 99 03/07/20 22:00 03/07/20 20:30 03/07/20 20:00
[2020-03-08 06:37] LABS: Estimated Average Glucose 232 mg/dl; Hemoglobin A1C 9.7 % (4.5-5.6)
[2020-03-08] MEDS: ENOXAPARIN INJ 30 MG/0.3 ML SYR SQ SCH (08:47)
[2020-03-08] MEDS: CYANOCOBALAMIN 500 MCG TABLET (VITAMIN B-12) PO SCH (08:47)
[2020-03-08] MEDS: ESTROGENS, CONJUGATED 0.625 MG TAB PO SCH (08:47)
[2020-03-08] MEDS: INSULIN GLARGINE SOLOSTAR 100 UNITS/ML 3 ML PEN SC SCH (08:48)
[2020-03-08] MEDS: INSULIN ASPART 100 UNITS/ML 3 ML PEN SC SCH ×4 (08:49→21:21)
[2020-03-08] MEDS: DOXYCYCLINE HYCLATE 100 MG CAP PO SCH ×2 (08:56→20:40)
[2020-03-08] MEDS ORDERED: POTASSIUM PHOS 3 MMOL/1 ML INFUSION IV ONE (09:07)
[2020-03-08] MEDS ORDERED: POTASSIUM PHOSPHATE 21 MMOL in SODIUM CHLORIDE 0.9% 500 ML IV ONE (09:15)
[2020-03-08] MEDS ORDERED: MAGNESIUM SULFATE / D5W 1 GM/100 ML BAG IV ONE (09:15)
[2020-03-08 10:59] LABS: BUN Creatinine Ratio 9.5 (10-20); Calcium 8.5 mg/dl (8.5-10.1); Creatinine Clr Calc Pharmacy 71.6 ml/min; Est GFR (Non-African American) 83.7; Potassium 3.4 mmol/L (3.5-5.1)
--- NOTE | 2020-03-08 11:52 | Pharmacy Report ---
Glycemic Control Progress Note - Date of Service March 08, 2020 - Scope Glycemic Pharmacist consulted for glycemic control to write orders per [facility] inpatient glycemic control protocol. - Objective Accuchecks BSG(last 24 hours):: 03/07/20 03/07/20 03/07/20 13:21 15:40 20:26 Glucose 158 H POC Glucose 133 H 127 H 03/07/20 03/08/20 03/08/20 20:52 08:02 10:10 Glucose 146 H 163 H POC Glucose 104 H 03/08/20 11:31 Glucose POC Glucose 149 H HbA1c:: Hemoglobin A1c 9.7 % (4.5-5.6) H 03/07/20 05:11 - Recent Pertinent Medications The patient is currently receiving: * Basal insulin: Lantus 25 units SQ x 1 * Correctional Insulin: Novolog Correction per scale ACHS Goal Range: Low 120 mg/dL - High 150 mg/dL Correction Factor: 30 mg/dL/unit * Prandial insulin: Per carb ratio of 1 unit per 12 grams CHO consumed - Outpatient Anti-Diabetic Meds Metformin 850 mg BID Ozempic 2 SQ weekly Jardiance 25 mg daily - Assessment & Plan ASSESSMENT: * See progress note from 03/07/2020 for more background info, in short: * Pt receiving SQ basal bolus insulin regimen for hyperglycemia secondary to baseline DM (outpatient regimen on hold). * Patient is currently receiving an average of 31 units of insulin per day (received insulin infusion up until 1200 on 03/07/2020) * 25 units of basal insulin * 6 units of prandial/correctional insulin * BSGs ranging 105 - 158 mg/dl over the past 24hrs * Changes needed to insulin regimen: * AM Fasting BSG = 104 mg/dl. This is slightly below goal range for patient based on inpatient targets and co-morbidities. Basal insulin will be decreased by 20% to 20 units daily (correlates to full weight-based stress of 2 Lantus). * Post-prandial BSGs are in range therefore no changes needed to CF/CR. * Total daily dose = ~35 units. * Additional notes / comments: continue to hold oral medications PLAN FOR INPATIENT GLYCEMIC CONTROL: * Decreasing Lantus to 20 units SQ daily * Continuing correction factor of 30 mg/dl/unit * Continuing carb ratio of 1 unit per 12 grams CHO consumed * Continuing goal range of Low 120 mg/dL - High 150 mg/dL RECOMMENDATIONS FOR DISCHARGE: * euglycemic ketoacidosis attributed to Jardiance therefore d/c on discharge. * Recommend initiation of Lantus 20 units daily with metformin 850 mg BID and Ozempic 2 mg SQ weekly * Ozempic may be titrated upwards as recently improved for doses of 3 mg or 4 mg weekly. * A1C reduction obtained via this route may not be significant enough to reach goal. Gastric side effects are much more common at higher doses. Thank you.
[2020-03-08] MEDS ORDERED: POTASSIUM CHLORIDE CRTAB 20 MEQ TABCR PO ONE (12:45)
--- NOTE | 2020-03-08 16:58 | Hospitalist Progress Note ---
Date of Service March 08, 2020 Assessment & Plan (1) Metabolic acidosis: Diabetic ketoacidosis Anion gap metabolic acidosis Euglycemic DKA likely secondary to SGLT inhibitors Jardiance held (reports being on Jardiance for many years ) HbA1C:9.7 Toxicology screen pending Received IV bicarbonate Anion gap closed Insulin drip transitioned to SQ Received IV fluids Monitor BGs Tolerated regular diet Acute kidney injury Likely prerenal secondary to above Received IV fluids Monitor renal function Avoid nephrotoxic agents as able Cr back to baseline DM II Last Outpatient HbA1C: 11.9 Dec 2019 Continue Insulin while hospitalized Updated HbA1C:9.7 Needs Basal Insulin upon discharge Mood disorder Stable Continue Celexa RLE melanoma S/P recent surgery Postop wound infection Was on outpatient Keflex course Continue doxycycline empirically Blood cultures: No growth to date Leukocytosis resolved Hypokalemia Hypophosphatemia Replace electrolytes as needed DVT Px: Lovenox SQ Code Status Full code Disposition Expect to discharge home when medically stable Needs Rx for insulin pen needles (4mm x 32G) and Basal Insulin on discharge Admission and Anticipated Discharge Date Admission Date: March 06, 2020 Subjective Patient is seen and examined at bedside States feeling much better today No new complaints Family at bedside Review of Systems Review of Systems: All systems reviewed & are unremarkable except as noted in HPI & below Physical Exam Physical Exam: Physical Exam: Vitals signs as noted above General Appearance:Thin, frail, no apparent distress Head: normocephalic, Atraumatic Eyes: normal inspection, EOMI Neck: supple, Trachea midline Respiratory/Chest: Decreased breath sounds, CTA Cardiovascular: S1, S2, No murmur Abdomen/GI:Soft, Non tender, Bowel sounds present Extremities/Musculoskelatal:normal inspection, no edema, R popliteal fossa--+Sutures Neurologic/Psych:AAOX3, grossly no focal neurological deficits Skin: normal color, warm Results & Data Results & Data ([facility]) Vital Signs (Past 12 Hours) Vital Signs Temp Pulse Pulse Resp BP Pulse Ox 03/08/20 15:41 36.6 C 76 18 118/79 97 03/08/20 11:16 36.8 C 81 20 119/81 100 03/08/20 07:55 36.3 C L 78 18 106/71 97 03/08/20 07:33 73 Laboratory Results BMP 03/07/20 03/08/20 20:52 10:10 Sodium 140 140 Potassium 3.7 3.4 L Chloride 112 H 109 H Carbon Dioxide 21 24 BUN 11 8 Creatinine 0.97 0.79 Glucose 146 H 163 H Calcium 8.3 L 8.5
[2020-03-08] MEDS: CITALOPRAM 20 MG TAB PO SCH (20:39)
[2020-03-09] MEDS: ESTROGENS, CONJUGATED 0.625 MG TAB PO SCH (08:18)
[2020-03-09] MEDS: DOXYCYCLINE HYCLATE 100 MG CAP PO SCH (08:18)
[2020-03-09] MEDS: CYANOCOBALAMIN 500 MCG TABLET (VITAMIN B-12) PO SCH (08:18)
[2020-03-09] MEDS: ENOXAPARIN INJ 30 MG/0.3 ML SYR SQ SCH (08:18)
[2020-03-09 08:52] LABS: BUN Creatinine Ratio 13.5 (10-20); Calcium 9.4 mg/dl (8.5-10.1); Creatinine Clr Calc Pharmacy 117.3 ml/min; Est GFR (African American) 120.8; Est GFR (Non-African American) 104.2; Magnesium 1.8 mg/dl (1.8-2.4); Phosphorus 2.4 mg/dl (2.5-4.9); Potassium 4.4 mmol/L (3.5-5.1)
[2020-03-09] MEDS: INSULIN ASPART 100 UNITS/ML 3 ML PEN SC SCH ×2 (09:29→12:54)
[2020-03-09] MEDS: INSULIN GLARGINE SOLOSTAR 100 UNITS/ML 3 ML PEN SC SCH (09:32)
[2020-03-09] MEDS: POT PHOSPHATE MONOBASIC W/ SOD TAB PO SCH ×2 (09:35→13:18)
--- NOTE | 2020-03-09 13:35 | Hospitalist Progress Note ---
Date of Service March 09, 2020 Assessment & Plan (1) Metabolic acidosis: Diabetic ketoacidosis Anion gap metabolic acidosis Euglycemic DKA likely secondary to SGLT inhibitors Jardiance held (reports being on Jardiance for many years ) HbA1C:9.7 Toxicology screen pending Received IV bicarbonate Anion gap closed Insulin drip transitioned to SQ Received IV fluids Monitor BGs Tolerated regular diet Plan to discharge on basal Insulin Acute kidney injury Likely prerenal secondary to above Received IV fluids Monitor renal function Avoid nephrotoxic agents as able Resolved DM II Last Outpatient HbA1C: 11.9 Dec 2019 Continue Insulin while hospitalized Updated HbA1C:9.7 Needs Basal Insulin upon discharge Mood disorder Stable Continue Celexa RLE melanoma S/P recent surgery Postop wound infection Was on outpatient Keflex course Continue doxycycline to complete the course Blood cultures: No growth to date Clinically doesn't look infected Leukocytosis resolved Hypokalemia Hypophosphatemia Replace electrolytes as needed DVT Px: Lovenox SQ Code Status Full code Disposition Expect to discharge home when medically stable Needs Rx for insulin pen needles (4mm x 32G) and Basal Insulin on discharge Admission and Anticipated Discharge Date Admission Date: March 06, 2020 Subjective Patient is seen and examined at bedside No new complaints States feeling better Denies chest pain, Dyspnea, dizziness, nausea, abd pain Plan to discharge home today Review of Systems Review of Systems: All systems reviewed & are unremarkable except as noted in HPI & below Physical Exam Physical Exam: Physical Exam: Vitals signs as noted above General Appearance:Thin, frail, no apparent distress Head: normocephalic, Atraumatic Eyes: normal inspection, EOMI Neck: supple, Trachea midline Respiratory/Chest: Decreased breath sounds, CTA Cardiovascular: S1, S2, No murmur Abdomen/GI:Soft, Non tender, Bowel sounds present Extremities/Musculoskelatal:normal inspection, no edema, R popliteal fossa--+Sutures Neurologic/Psych:AAOX3, grossly no focal neurological deficits Skin: normal color, warm Results & Data Results & Data ([facility]) Vital Signs (Past 12 Hours) Vital Signs Temp Pulse Pulse Resp BP Pulse Ox 03/09/20 07:48 36.3 C L 76 18 118/81 98 03/09/20 07:28 72 03/09/20 03:52 36.5 C 79 20 124/81 96 03/09/20 02:02 82 Laboratory Results BMP 03/09/20 07:57 Sodium 139 Potassium 4.4 D Chloride 108 H Carbon Dioxide 27 BUN 8 Creatinine 0.56 L Glucose 135 H Calcium 9.4
--- NOTE | 2020-03-09 14:11 | Discharge Summary ---
Date of Service March 09, 2020 Admission HPI Per Admitting Provider History obtained from patient, family, and records. Medical history significant for DM2 on oral medications, hyperlipidemia, mood disorder, melanoma status post surgery, cervical intraepithelial neoplasia as per records, GERD. Last confinement 2015 for developing DKA. 3 weeks ago, patient underwent wide local excision of melanoma right lower extremity (popliteal fossa) and right groin node biopsy at [facility] same-day surgery. Last week, patient noted right popliteal fossa postop pain, redness, and drainage. Keflex course prescribed for infected incision by PCP 2 days ago. Some improvement in swelling as per patient. 2 days history of achy abdominal pain nausea, vomiting symptoms. No diarrhea. Poor appetite. No chest pain, no S OB. No recent COVID-19 contacts although patient employed at [employer]. Patient denies ethanol/ethylene glycol/methanol intake. Denies unusual stress at home At the ER, anion gap metabolic acidosis, osmolar gap, hyperglycemia in the 200s noted on blood work. Fomepizole administered for possible ethylene glycol/methanol poisoning following Toxicology recommendations. IV insulin, D5 IV fluid later initiated for possible euglycemic DKA secondary to patient's Jardiance home Rx following Toxicology recommendations. 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 Admission Exam Per Admitting Provider Physical Exam Physical Exam: GENERAL: uncomfortable, pleasant, no respiratory distress SKIN: Normal color, warm HEENT: [place] palpebral conjunctivae, no ptosis, dry buccal mucosa NECK : Supple, no tenderness CHEST : CTA, no tenderness HEART : Tachycardic, no obvious murmurs ABDOMEN: Some distention, nontender EXTREMITIES : No LE swelling/tenderness, well coaptated sutures over postop site right popliteal fossa with no induration or drainage appreciated, no other conspicuous deformities noted NEUROLOGIC : Coherent, no facial asymmetry, no other gross focality Principal Diagnosis Euglycemic Diabetic ketoacidosis Anion gap metabolic acidosis Acute kidney injury Discharge Data Allergies Allergy/AdvReac Type Severity Reaction Status Date / Time codeine Allergy Severe HIVES,SOB Verified 03/06/20 20:01 adhesive Allergy Intermediate RED,ITCHY,H Verified 03/06/20 20:01 BINA Sulfa (Sulfonamide Allergy Intermediate "SULFA Verified 03/06/20 20:01 Antibiotics) DRUGS": RASH AND HIVES salicylates Allergy Unknown PT Verified 03/06/20 20:01 STORAGE POLE DISEASE empagliflozin AdvReac Intermediate poss Verified 03/06/20 23:05 [From Jardiance] euglycemic dka morphine AdvReac Intermediate EXTREME Verified 03/06/20 20:01 NAUSEA AND VOMITING Consultations 03/06/20 20:13 ED Decision to Admit Stat 03/07/20 00:16 Consult Plate Put In Worker Routine 03/07/20 00:49 Consult Case Management - Discharge Planning Routine Procedures Performed CXR:No active disease in the chest. CT ABD: 1. No evidence of bowel obstruction. No evidence of free air 2. No renal, ureteral, or bladder calculi identified 3. No acute inflammatory changes 4. Partially visualized 24 mm cystic lesion within the right inferior inguinal region. This is of uncertain etiology. Clinical correlation advocated. Ordered Studies 03/06/20 18:26 CT abd pelvis wo con Stat Diabetes Follow up Diabetes Follow-up Needed for HgbA1c >9% Hospital Course (1) Metabolic acidosis: Diabetic ketoacidosis Anion gap metabolic acidosis Euglycemic DKA likely secondary to SGLT inhibitors Jardiance held (reports being on Jardiance for many years ) HbA1C:9.7 Toxicology screen pending Received IV bicarbonate Anion gap closed Insulin drip transitioned to SQ Received IV fluids Monitor BGs Tolerated regular diet Plan to discharge on basal Insulin Acute kidney injury Likely prerenal secondary to above Received IV fluids Monitor renal function Avoid nephrotoxic agents as able Resolved DM II Last Outpatient HbA1C: 11.9 Dec 2019 Continue Insulin while hospitalized Updated HbA1C:9.7 Needs Basal Insulin upon discharge Mood disorder Stable Continue Celexa RLE melanoma S/P recent surgery Postop wound infection Was on outpatient Keflex course Continue doxycycline to complete the course Blood cultures: No growth to date Clinically doesn't look infected Leukocytosis resolved Hypokalemia Hypophosphatemia Replace electrolytes as needed DVT Px: Lovenox SQ Code Status Full code Disposition Expect to discharge home when medically stable Needs Rx for insulin pen needles (4mm x 32G) and Basal Insulin on discharge Total Time Total Time Spent Total Time Spent (In Minutes): 43 minutes Total Time Includes: Examination of the Patient, Discharge Planning, Medication Reconciliation, Communication With Other Providers and Other Discharge Plan Discharge Items Patient Disposition: Home - Self-Care Reason For Visit: META ACIDOSIS Discharge Diagnosis: Euglycemic Diabetic ketoacidosis Anion gap metabolic acidosis Acute kidney injury Activity: Per Instructions section Exercise/Sports: Gradually increase as tolerated Non-emergency contact: Primary Care Provider Call non-emergency contact if: you have any medication questions, your symptoms worsen, your pain is not controlled, your pain is worsening, your pain is unusual for you, you have a fever, your wound has increased redness, your wound has increased drainage and your wound pain has increased Follow-up/Referrals: Rosalino Morgan MD [Primary Care Provider] - (Date & Time 03/16/2020 11:20 AM Provider Yoselin Morgan MD Department General Internal Medicine [facility] ) Diet: Carb Consistent or DM2 and Heart Healthy Addtl Attending Provider Instructions: Follow up with your PCP Dr.Manisha Morgan on 03/16/2020 11:20 AM as scheduled Complete the antibiotic --Doxycycline course as prescribed Take medications regularly as advised. Seek immediate medical attention if your symptoms reoccur or worsen Pending Studies at Discharge: No Stand-Alone Forms: [employer], Smoking Cessation Medications and DC Order Prescriptions: New doxycycline hyclate 100 mg Capsule 100 mg PO BID Qty: 7 RF: 0 Lantus Solostar U-100 Insulin 100 unit/mL (3 mL) Insulin Pen 20 unit SC QAM 30 Days Qty: 6 RF: 1 (DME) pen needle, diabetic [Pen Needle] 32 gauge x 5/32" needle See Rx Instructions .ROUTE .MEDSUPPLY Qty: 100 RF: 0 Continued citalopram 10 mg tablet 10 mg PO HS RF: 0 metformin 850 mg tablet 850 mg PO TIDM RF: 0 cyanocobalamin (vitamin B-12) [Vitamin B-12] 500 mcg Tablet 500 mcg PO QAM RF: 0 Premarin 0.625 mg tablet 0.625 mg PO QAM RF: 0 lisinopril 2.5 mg tablet 2.5 mg PO QAM RF: 0 Ozempic 1 mg/dose (2 mg/1.5 mL) pen injector 2 mg SUBCUT WK RF: 0 Discontinued Jardiance 25 mg tablet 25 mg PO QAM RF: 0 ibuprofen [Advil] 200 mg Tablet 400 mg PO Q6H PRN (Reason: Pain) RF: 0 Discharge Orders: Discharge Order (Routine); Ordered 03/09/20 Ordered By: Mj Du Admission Data Admit Date/Time: 03/06/20 22:03 Attending Provider: Mj Du Admit Provider: Paul Montano Primary Care Provider: Rosalino Morgan Other Providers: Paul Montano ; Go Mckeon Other Interventions: Discharge Summary Assessment (RN) Last Done: 03/09/20 14:23
[2020-03-09 15:37] VITALS: BP 118/81; PULSE 76; TEMP 97.3; O2SAT 98
[2020-03-10 15:55] LABS: Ethylene Glycol <10.0 mg/L (see note); Methyl Alcohol Comment WHOLE BLOOD; Methyl Alcohol Level NONE DETECTED (NONE DETECTED)
== END 2020-03-09 15:35 | disposition home or self-care (01) | DRG 638 ==
LOC: ED 16:57 → 1E 22:03 → 2N 03-07 20:57

== ENCOUNTER 2023-05-04 16:00 | Inpatient (IN) ==
--- NOTE | 2023-05-04 16:16 | ED Triage Note ---
Date of Service May 04, 2023 Provider in Triage Author: Kalina Chambers History of Present Illness This patient was briefly evaluated while in triage. An abbreviated physical exam was performed. This patient is a 57-year-old Female who presents to the ED for evaluation of shortness of breath. She reports chills, achiness, bodyaches and vomiting. She states her blood sugars have been in the 400s for the past week. She is a type 2 diabetic. She took a home COVID test which was negative. Physical Exam VITALS: Vitals are noted on the nurse's note and reviewed by myself. GENERAL: This is a 57-year-old female, in no acute distress, well-developed well-nourished. SKIN: The skin was without rashes. HEART: Regular rate and rhythm without murmurs gallops or rubs. LUNGS: Clear to auscultation bilaterally without wheezes, rales or rhonchi. NEURO: Patient was alert and oriented to person place and time. Initial orders for labs and / or imaging were placed and patient was placed in the waiting area until a bed is available. Please see further documentation for the full ED course.
[2023-05-04] MEDS: SODIUM CHLORIDE 0.9% 1,000 ML IV ONE ×2 (16:40→17:16)
[2023-05-04 16:45] LABS: Base Excess VBG -3.1 mEq/L; HCO3 VBG 22 mmol/L; Oxygen Saturation VBG 71.7 %; PCO2 VBG 39 mmHg (38-50); PO2 VBG 43 mmHg; pH VBG 7.36 (7.36-7.41)
[2023-05-04 16:55] LABS: Appearance Urine Clear (Clear); Bacteria Urine Automated 1+ (Negative); Bilirubin Urine Negative (Negative); Blood Urine 1+ (Negative); Cast Urine Automated 0 /lpf (0-5); Color Urine Yellow; Glucose Urine UA 3+ (Negative); Hematocrit (blood only) 32.9 % (37.0-47.0); Hemoglobin 10.3 g/dl (12.0-16.0); Ketones Urine Trace (Negative); Leukocyte Esterase Urine Negative (Negative); Mean Corpuscular Hemoglobin 24.1 pg (25.0-34.0); Mean Corpuscular Hgb Conc 31.3 g/dL (32.0-36.0); Mean Corpuscular Volume 76.9 fL (80.0-100.0); Mean Platelet Volume 10.9 fL (9.4-12.4); Nitrite Urine Negative (Negative); Platelet Count 266 K/uL (130-400); Protein Urine 1+ (Negative); RDW Coefficient of Variation 18.1 % (11.5-14.5); RDW Standard Deviation 49.9 fL (36.4-46.3); Red Blood Count 4.28 M/uL (4.20-5.40); Specific Gravity Urine 1.035 (1.000-1.030); Urobilinogen Urine Negative (Negative); White Blood Count 11.64 K/ul (4.8-10.8)
--- NOTE | 2023-05-04 17:08 | XRay Report ---
XR chest 1V not portable HISTORY: cough, illness COMPARISON: Chest 03/06/2020. FINDINGS: No pneumothorax. No pleural effusions. The lungs are clear. The heart is normal in size. No acute fractures identified. IMPRESSION: No acute process. ACT 112: Negative or not required by law. Electronically signed by: Cirilo Harrison M.D. 05/04/2023 5:07 PM
[2023-05-04 17:11] LABS: Influenza A virus by PCR Negative (Neg); Influenza B virus by PCR Negative (Neg); RSV by PCR Negative (Neg)
[2023-05-04] MEDS ORDERED: SODIUM CHLORIDE 0.9% 1,000 ML IV ONE (17:12)
[2023-05-04 17:16] LABS: SARS CoV2 RNA(COVID-19) Ceph POSITIVE (Negative)
--- NOTE | 2023-05-04 17:17 | Emergency Department Note ---
Impression & Plan Acute hyperglycemia, COVID-19, Anemia ED Provider Note NAME: JAMIN PETERSON AGE: 57 SEX: F : 1965 ARRIVES VIA: Walk-In INFORMANT: Patient, ED PROVIDER(S): Paxton Almazan DO CHIEF COMPLAINT: Cough HPI: The patient is a 57-year-old female who presented for cough. She also noticed difficulty breathing. She had subjective chills. She denies having any chest pain but does complain of cough and difficulty breathing especially with exertion. She has had polyuria and polydipsia. She was seen at the clinic and then sent to the emergency department for further evaluation. The patient denies having any diarrhea. ROS: See above HPI for pertinent positives & negatives. A total of 10 systems reviewed and were otherwise negative. PAST MEDICAL HISTORY: See Below PAST SURGICAL HISTORY: See Below FAMILY HISTORY: See Below SOCIAL HISTORY: See Below HOME MEDICATIONS: See Below ALLERGIES: See Below VITALS: See Below PHYSICAL EXAMINATION: GENERAL: Patient is awake alert in no acute distress patient is resting comfortably and showing no signs of anxiety EYES: The conjunctivae are clear. The pupils are round and reactive. EARS, NOSE, MOUTH AND THROAT: The nose is without any evidence of any deformity. NECK: The neck is nontender and supple. RESPIRATORY: Normal respiratory effort is noted there is no evidence of wheezing rhonchi or rales CARDIOVASCULAR: Tachycardic rate with regular rhythm was noted. There is no definite murmur. GASTROINTESTINAL: The abdomen is soft. Abdomen is nontender. Rectal exam revealed brown stool which was heme-negative. MUSCULOSKELETAL/EXTREMITIES: There is no evidence of gross deformity full range of motion is noted in the hips and shoulders. SKIN: There is no obvious evidence of any rash. There are no petechiae, pallor or cyanosis noted. NEUROLOGIC: Patient is awake alert and oriented x3 MEDICAL DECISION MAKING: The patient is a 57-year-old female who presented to the emergency department for an evaluation of difficulty breathing. The patient's had multiple complaints including cough and polyuria and polydipsia. She was found to have significant hyperglycemia. She was not in DKA. She was treated with IV fluids in the emergency department. She was also treated with IV insulin. I discussed the patient's laboratory and radiographic studies with her. Given her findings I also discussed her condition with the on-call [facility] hospitalist. She was found have an elevated troponin. EKG shows no change compared to previous. I do feel the patient would be better managed as an inpatient. Triage Nursing notes reviewed. Prior medical records reviewed Vital Signs: reviewed and remarkable for tachycardia. Differential diagnosis: Reactive airway disease, pneumonia, pneumothorax, COPD, CHF, infections, cardiac ischemia, pulmonary embolism, musculoskeletal, gastrointestinal, as well as other pathologies. ER treatment provided: See below Diagnostics interpreted by me: ECG: EKG was obtained in the emergency department. My interpretation is normal sinus rhythm at 96 bpm. There is no ectopy. There is no acute ST segment abnormalities noted. This was compared to a tracing from March 06, 2020. There was a decrease in rate otherwise no changes were noted. Cardiac Monitoring: An order was placed for continuous cardiac monitoring. The monitor shows a rate of 85 bpm with sinus rhythm. Laboratory studies: As stated above and show below. Imaging studies: See below. Radiographic imaging was reviewed by myself Consultation(s): I discussed this case with Dr. Pulido [facility]. Past Med/Surg History Medical History Melanoma Diabetes with ketoacidosis Diabetes Surgical History Hx of melanoma excision Social History Smoking Status: Never smoker Hx Alcohol Use: Yes Alcohol type: wine Hx Substance Use: No Preferred Language: Monegasque Communication Ability: Effective Band Sawyer Required: No Beliefs That Will Affect Care: None Current Living Situation: Spouse and Family Feels Safe at Home: Yes Assistive Devices: None Allergies Allergies Allergy/AdvReac Type Severity Reaction Status Date / Time codeine Allergy Severe HIVES,SOB Verified 03/06/20 20:01 adhesive Allergy Intermediate RED,ITCHY,H Verified 03/06/20 20:01 BINA Sulfa (Sulfonamide Allergy Intermediate "SULFA Verified 03/06/20 20:01 Antibiotics) DRUGS": RASH AND HIVES salicylates Allergy Unknown PT Verified 03/06/20 20:01 STORAGE POLE DISEASE empagliflozin AdvReac Intermediate poss Verified 03/06/20 23:05 [From Jardiance] euglycemic dka morphine AdvReac Intermediate EXTREME Verified 03/06/20 20:01 NAUSEA AND VOMITING Home Meds Home Medications Medication Instructions Recorded Confirmed citalopram 10 mg tablet 10 mg PO HS 03/06/20 05/04/23 cyanocobalamin (vitamin B-12) 500 500 mcg PO QAM 03/06/20 05/04/23 mcg tablet (Vitamin B-12) lisinopril 2.5 mg tablet 2.5 mg PO QAM 03/06/20 05/04/23 semaglutide 1 mg/dose (2 mg/1.5 1 mg subcut WK 03/06/20 05/04/23 mL) subcutaneous pen injector (Ozempic) insulin glargine-yfgn 100 unit/mL 30 unit subcut HS 05/04/23 05/04/23 (3 mL) subcutaneous pen (Semglee (insulin glargine-yfgn) Pen) insulin lispro 100 unit/mL See Rx Instructions .Route .COMPLEX 05/04/23 05/04/23 subcutaneous pen metformin 500 mg tablet,extended 1,000 mg PO BID 05/04/23 05/04/23 release 24 hr rosuvastatin 5 mg tablet 5 mg PO QAM 05/04/23 05/04/23 Previous Rx's Medication Instructions Recorded Pen Needle 32 gauge x 5/32" (pen #100 ea 03/09/20 needle, diabetic) Results & Data (ED) Vital Signs Vital Signs - 24 hr 05/04/23 16:15 05/04/23 17:17 05/04/23 18:11 Temperature 36.7 C Temperature Source Temporal Artery Scan Pulse Rate 113 H 98 H Pulse Rate [Apical] 104 H Respiratory Rate 20 24 Respiratory Depth Normal Normal Blood Pressure 126/79 Blood Pressure [Right Arm] 126/83 Blood Pressure Mean 94 Blood Pressure Mean [Right Arm] 97 Blood Pressure Position [Right Arm] Lying Pulse Oximetry 100 99 Oxygen Delivery Method Room Air Room Air Sepsis Recent Fever Within 48 Hours No Sepsis New/Unexplained Change in Mental Status N/A Sepsis Action Taken by Nursing No Action Required 05/04/23 19:30 05/04/23 19:36 05/04/23 22:22 Temperature Temperature Source Pulse Rate 126 H Pulse Rate [Apical] 93 H Respiratory Rate 18 Respiratory Depth Blood Pressure Blood Pressure [Right Arm] 106/85 Blood Pressure Mean Blood Pressure Mean [Right Arm] 92 Blood Pressure Position [Right Arm] Pulse Oximetry 98 98 Oxygen Delivery Method Room Air Room Air Sepsis Recent Fever Within 48 Hours Sepsis New/Unexplained Change in Mental Status Sepsis Action Taken by Intermediate Medications Current Medication List: was personally reviewed by me Laboratory Data Attestation: I reviewed the patient's lab results. 05/04/23 16:30 05/04/23 16:30 Lab Results 05/04/23 05/04/23 05/04/23 Range/Units 16:05 16:17 16:30 WBC 11.64 H (4.8-10.8) K/ul RBC 4.28 (4.20-5.40) M/uL Hgb 10.3 L (12.0-16.0) g/dl Hct 32.9 L (37.0-47.0) % MCV 76.9 L (80.0-100.0) fL MCH 24.1 L (25.0-34.0) pg MCHC 31.3 L (32.0-36.0) g/dL RDW Std Deviation 49.9 H (36.4-46.3) fL RDW Coeff of Maribel 18.1 H (11.5-14.5) % Plt Count 266 (130-400) K/uL MPV 10.9 (9.4-12.4) fL Immature Gran % (Auto) 0.6 % Neut % (Auto) 90.9 % Lymph % (Auto) 4.3 % [place] % (Auto) 4.0 % Eos % (Auto) 0.0 % Baso % (Auto) 0.2 % Neut # (Auto) 10.59 H (1.40-6.50) K/uL Lymph # (Auto) 0.50 L (1.20-3.40) K/uL [place] # (Auto) 0.46 (0.11-0.59) K/uL Eos # (Auto) 0.00 (0.00-0.50) K/uL Baso # (Auto) 0.02 (0.00-0.20) K/uL Immature Gran # (Auto) 0.07 (0.01-0.20) K/uL Tear Drop Cells 1+ Echinocytes 1+ VBG pH 7.36 (7.36-7.41) VBG pCO2 39 (38-50) mmHg VBG pO2 43 mmHg VBG HCO3 22 mmol/L VBG O2 Saturation 71.7 % VBG Base Excess -3.1 mEq/L Sodium 130 L (136-145) mmol/L Potassium 4.1 (3.5-5.1) mmol/L Chloride 98 (98-107) mmol/L Carbon Dioxide 22 (21-32) mmol/L Anion Gap 10 (3-11) BUN 11 (6-23) mg/dl Creatinine 1.08 (0.6-1.2) mg/dl Est Cr Clr Drug Dosing 61.1 ml/min Est GFR ( Amer) 65.1 ml/min Est GFR (Non-Af Amer) 56.1 ml/min BUN/Creatinine Ratio 10.2 (10-20) Glucose 682 H* (70-99(Fasting)) mg/dl POC Glucose > 600 H* (70-99) mg/dl Calcium 9.1 (8.6-10.3) mg/dl Total Bilirubin 1.0 (0.2-1.0) mg/dl AST 31 (13-39) U/L ALT 25 (7-52) U/L Alkaline Phosphatase 134 H (34-104) U/L Troponin I High Sens 29.2 H (0-14) pg/ml Total Protein 7.0 (6.0-8.3) gm/dl Albumin 3.2 L (3.4-5.0) gm/dl Globulin 3.8 (2.5-4.0) gm/dl Albumin/Globulin Ratio 0.8 L (0.9-2) Urine Color Yellow Urine Appearance Clear (Clear) Urine pH 6.0 (4.5-7.5) Ur Specific [place] 1.035 H (1.000-1.030) Urine Protein 1+ H (Negative) Urine Glucose (UA) 3+ H (Negative) Urine Ketones Trace H (Negative) Urine Blood 1+ H (Negative) Urine Nitrite Negative (Negative) Urine Bilirubin Negative (Negative) Urine Urobilinogen Negative (Negative) Ur Leukocyte Esterase Negative (Negative) Urine WBC (Auto) 1-5 (0-5) /hpf Urine RBC (Auto) 5-10 H (0-4) /hpf U Hyaline Cast (Auto) 0 (0-5) /lpf U Epithel Cells (Auto) 10-20 H (0-5) /lpf Urine Bacteria (Auto) 1+ H (Negative) SARS-CoV-2 (PCR) POSITIVE A* (Negative) Influenza Type A (PCR) Negative (Neg) Influenza Type B (PCR) Negative (Neg) RSV (RT-PCR) Negative (Neg) 05/04/23 05/04/23 Range/Units 19:32 19:58 WBC (4.8-10.8) K/ul RBC (4.20-5.40) M/uL Hgb (12.0-16.0) g/dl Hct (37.0-47.0) % MCV (80.0-100.0) fL MCH (25.0-34.0) pg MCHC (32.0-36.0) g/dL RDW Std Deviation (36.4-46.3) fL RDW Coeff of Maribel (11.5-14.5) % Plt Count (130-400) K/uL MPV (9.4-12.4) fL Immature Gran % (Auto) % Neut % (Auto) % Lymph % (Auto) % [place] % (Auto) % Eos % (Auto) % Baso % (Auto) % Neut # (Auto) (1.40-6.50) K/uL Lymph # (Auto) (1.20-3.40) K/uL [place] # (Auto) (0.11-0.59) K/uL Eos # (Auto) (0.00-0.50) K/uL Baso # (Auto) (0.00-0.20) K/uL Immature Gran # (Auto) (0.01-0.20) K/uL Tear Drop Cells Echinocytes VBG pH (7.36-7.41) VBG pCO2 (38-50) mmHg VBG pO2 mmHg VBG HCO3 mmol/L VBG O2 Saturation % VBG Base Excess mEq/L Sodium (136-145) mmol/L Potassium (3.5-5.1) mmol/L Chloride (98-107) mmol/L Carbon Dioxide (21-32) mmol/L Anion Gap (3-11) BUN (6-23) mg/dl Creatinine (0.6-1.2) mg/dl Est Cr Clr Drug Dosing ml/min Est GFR ( Amer) ml/min Est GFR (Non-Af Amer) ml/min BUN/Creatinine Ratio (10-20) Glucose (70-99(Fasting)) mg/dl POC Glucose 324 H* (70-99) mg/dl Calcium (8.6-10.3) mg/dl Total Bilirubin (0.2-1.0) mg/dl AST (13-39) U/L ALT (7-52) U/L Alkaline Phosphatase (34-104) U/L Troponin I High Sens 8.9 D (0-14) pg/ml Total Protein (6.0-8.3) gm/dl Albumin (3.4-5.0) gm/dl Globulin (2.5-4.0) gm/dl Albumin/Globulin Ratio (0.9-2) Urine Color Urine Appearance (Clear) Urine pH (4.5-7.5) Ur Specific [place] (1.000-1.030) Urine Protein (Negative) Urine Glucose (UA) (Negative) Urine Ketones (Negative) Urine Blood (Negative) Urine Nitrite (Negative) Urine Bilirubin (Negative) Urine Urobilinogen (Negative) Ur Leukocyte Esterase (Negative) Urine WBC (Auto) (0-5) /hpf Urine RBC (Auto) (0-4) /hpf U Hyaline Cast (Auto) (0-5) /lpf U Epithel Cells (Auto) (0-5) /lpf Urine Bacteria (Auto) (Negative) SARS-CoV-2 (PCR) (Negative) Influenza Type A (PCR) (Neg) Influenza Type B (PCR) (Neg) RSV (RT-PCR) (Neg) Administered Medications Discontinued Medications Acetaminophen (Acetaminophen 500 Mg Tab) 1,000 mg PO NOW STA Stop: 05/04/23 21:14 Last Admin: 05/04/23 21:49 Dose: 1,000 mg Documented By: Sodium Chloride (Nss) 1,000 mls @ 999 mls/hr IV .Q1H1M ONE Stop: 05/04/23 17:16 Last Infusion: 05/04/23 18:25 Dose: Infused Documented By: Admin: 05/04/23 17:16 Dose: 999 mls/hr Documented By: Infusion: 05/04/23 17:16 Dose: Infused Documented By: Admin: 05/04/23 16:40 Dose: 999 mls/hr Documented By: ALICE Sodium Chloride (Nss) 1,000 mls @ 999 mls/hr IV .Q1H1M ONE Stop: 05/04/23 18:12 Last Infusion: 05/04/23 18:25 Dose: Infused Documented By: Admin: 05/04/23 17:17 Dose: 999 mls/hr Documented By: LIZA Insulin Human Regular (Novolin-R Insulin Per Unit Charge) 10 units IV NOW STA Stop: 05/04/23 18:11 Last Admin: 05/04/23 18:26 Dose: 10 units Documented By: LIZA Co-signed By: HALEY Ondansetron HCl (Ondansetron Inj 2 Mg/Ml 2 Ml Vial) 4 mg IV NOW STA Stop: 05/04/23 22:02 Last Admin: 05/04/23 22:05 Dose: 4 mg Documented By: Ondansetron HCl (Ondansetron Inj 2 Mg/Ml 2 Ml Vial) 4 mg IV NOW STA Stop: 05/04/23 22:05 Last Admin: 05/04/23 22:10 Dose: Not Given Documented By: Imaging Data Attestation: I personally reviewed and interpreted this imaging study as follows: My Impression: 1 view chest x-ray was obtained in the emergency department. My interpretation is no free air or definite infiltrate, final report below Radiologist's Impression: Chest X-Ray 05/04/23 16:16 XR chest 1V not portable HISTORY: cough, illness COMPARISON: Chest 03/06/2020. FINDINGS: No pneumothorax. No pleural effusions. The lungs are clear. The heart is normal in size. No acute fractures identified. IMPRESSION: No acute process. ACT 112: Negative or not required by law. Electronically signed by: Cirilo Harrison M.D. 05/04/2023 5:07 PM Discharge Plan Visit Data Chief Complaint: Shortness of Breath/Dyspnea Stated Complaint: VOMITING, SOB, BLOOD SUGAR OVER 400, SHAKING ED Provider: Paxton Almazan Discharge Problem: Acute hyperglycemia, COVID-19, Anemia Patient Disposition: Home - Self-Care Forms Stand Alone Forms: My [facility], Important Visit Information Prescriptions Prescriptions: No Action citalopram 10 mg tablet 10 mg PO HS cyanocobalamin (vitamin B-12) [Vitamin B-12] 500 mcg Tablet 500 mcg PO QAM lisinopril 2.5 mg tablet 2.5 mg PO QAM Ozempic 1 mg/dose (2 mg/1.5 mL) pen injector 1 mg SUBCUT WK Patient Comments: per pt "she dials it all the way on the pen and thinks it's just 1 mg" Rx Instructions: Sunday (DME) pen needle, diabetic [Pen Needle] 32 gauge x 5/32" needle See Rx Instructions .ROUTE .MEDSUPPLY Qty: 100 0RF Rx Instructions: Check Blood glucose levels 3 times a day as instructed metformin 500 mg tablet extended release 24 hr 1,000 mg PO BID insulin lispro 100 unit/mL insulin pen See Rx Instructions .ROUTE .COMPLEX Rx Instructions: per pt she does sliding scale. rosuvastatin 5 mg tablet 5 mg PO QAM insulin glargine-yfgn [Semglee(insulin glarg-yfgn)Pen] 100 unit/mL (3 mL) insulin pen 30 unit SUBCUT HS Referrals Referrals: Rosalino Morgan MD [Primary Care Provider] - Discharge Problem: Anemia Qualifiers: Anemia type: unspecified type Qualified Code(s): D64.9 - Anemia, unspecified
[2023-05-04 17:18] LABS: Albumin Globulin Ratio 0.8 (0.9-2); Albumin Level 3.2 gm/dl (3.4-5.0); BUN Creatinine Ratio 10.2 (10-20); Calcium 9.1 mg/dl (8.6-10.3); Creatinine Clr Calc Pharmacy 61.1 ml/min; Est GFR (African American) 65.1 ml/min; Est GFR (Non-African American) 56.1 ml/min; Globulin 3.8 gm/dl (2.5-4.0); Potassium 4.1 mmol/L (3.5-5.1)
[2023-05-04 17:28] LABS: Basophils # (auto) 0.02 K/uL (0.00-0.20); Basophils % (auto) 0.2 %; Echinocytes 1+; Immature Granulocytes # (auto) 0.07 K/uL (0.01-0.20); Immature Granulocytes % (auto) 0.6 %; Lymphocytes % (auto) 4.3 %; Monocytes # (auto) 0.46 K/uL (0.11-0.59); Neutrophils # (auto) 10.59 K/uL (1.40-6.50); Neutrophils % (auto) 90.9 %; Tear Drop Cells 1+
[2023-05-04] MEDS ORDERED: NovoLIN-R INSULIN PER UNIT CHARGE IV STA (18:10)
[2023-05-04 18:13] LABS: Troponin I High Sensitivity 29.2 pg/ml (0-14)
[2023-05-04] MEDS ORDERED: ACETAMINOPHEN 500 MG TAB PO STA (21:13)
[2023-05-04] MEDS ORDERED: ONDANSETRON INJ 2 MG/ML 2 ML VIAL IV STA ×2 (22:01→22:04)
[2023-05-04] MEDS ORDERED: LANTUS PER UNIT CHARGE SQ STA (23:21)
--- NOTE | 2023-05-04 23:22 | History & Physical Report ---
Date of Service May 04, 2023 Assessment & Plan (1) Acute hyperglycemia: Plan: 57-year-old female with past medical history significant for type 2 diabetes, hyperlipidemia, extrinsic asthma, GERD, melanoma of right lower leg, history of iron deficiency, history of thrombocytopenia, history of depression, generalized anxiety disorder presents with ongoing nausea and shortness of breath for a week but lately she has been having lot of chills and bodyaches which prompted her to come to the ER. Having nausea and vomiting. Thinks she has some fever today. No headache. Vision is okay. No runny nose. Has some cough. Denies any chest pain. No abdominal pain. States earlier had diarrhea. Micturating okay. Hemodynamics are stable. Later patient developed rapid A-fib improved with IV Lopressor Hyperglycemia History of diabetes On presentation sugar 682 Not in DKA Received IV insulin 10 units in the ER Currently sugars are in 300s Will give home Lantus 30 units Insulin sliding scale Hold metformin IV fluids normal saline 200 mill per hour Closely monitor the blood sugars Glycemic pharmacy consult COVID Saturating okay COVID precautions Close monitor Rapid A-fib Improved with IV Lopressor Starting on IV heparin Follow serial cardiac enzymes and echo Cardiology consulted Possible UTI Rocephin Follow cultures Hyperlipidemia On statin Anemia History of iron deficiency Hemoglobin 10.3 Will follow stool for Hemoccult's Follow hemoglobin while on IV heparin Iron studies Vitamin B12 folate levels Follow labs Mild elevation of troponin Initial troponin 29 Will repeat enzymes and echo Depression On citalopram Hypertension On lisinopril DVT prophylaxis IV heparin. Follow Hemoccult studies Disposition Telemetry floor History of Present Illness Chief Complaint: Shortness of breath, nausea and chills Primary Care Provider: Rosalino Morgan MD 57-year-old female with past medical history significant for type 2 diabetes, hyperlipidemia, extrinsic asthma, GERD, melanoma of right lower leg, history of iron deficiency, history of thrombocytopenia, history of depression, generalized anxiety disorder presents with ongoing nausea and shortness of breath for a week but lately she has been having lot of chills and bodyaches which prompted her to come to the ER. Having nausea and vomiting. Thinks she has some fever today. No headache. Vision is okay. No runny nose. Has some cough. Denies any chest pain. No abdominal pain. States earlier had diarrhea. Micturating okay. Hemodynamics are stable. Past medical history. As mentioned above Past surgical history. Bilateral knee arthroplasty. Biopsy of lymph node. C- section x 2. Colonoscopy. Dental surgery. Knee arthroscopy bilaterally. Ligation of oviducts. Appendectomy. Excision of the malignant lesion in the right leg and trunk. Social history. . No smoking. Alcohol occasional. No drug use. Family history. Father had arthritis. Diabetes. Thrombocytopenia. Call cystectomy. Daughter has asthma. Maternal grandfather had CHF. Hypertension. Maternal grandmother had A-fib. Hypertension. Dementia. Stroke. Allergies Allergy/AdvReac Type Severity Reaction Status Date / Time codeine Allergy Severe HIVES,SOB Verified 03/06/20 20:01 adhesive Allergy Intermediate RED,ITCHY,H Verified 03/06/20 20:01 BINA Sulfa (Sulfonamide Allergy Intermediate "SULFA Verified 03/06/20 20:01 Antibiotics) DRUGS": RASH AND HIVES salicylates Allergy Unknown PT Verified 03/06/20 20:01 STORAGE POLE DISEASE empagliflozin AdvReac Intermediate poss Verified 03/06/20 23:05 [From [facility]] euglycemic dka morphine AdvReac Intermediate EXTREME Verified 03/06/20 20:01 NAUSEA AND VOMITING Home Medications Medication Instructions Recorded Confirmed Type citalopram 10 mg tablet 10 mg PO HS 03/06/20 05/04/23 History cyanocobalamin (vitamin B-12) 500 500 mcg PO QAM 03/06/20 05/04/23 History mcg tablet (Vitamin B-12) lisinopril 2.5 mg tablet 2.5 mg PO QAM 03/06/20 05/04/23 History semaglutide 1 mg/dose (2 mg/1.5 1 mg subcut WK 03/06/20 05/04/23 History mL) subcutaneous pen injector (Ozempic) Pen Needle 32 gauge x 5/32" (pen #100 ea 03/09/20 Rx needle, diabetic) insulin glargine-yfgn 100 unit/mL 30 unit subcut HS 05/04/23 05/04/23 History (3 mL) subcutaneous pen (Semglee (insulin glargine-yfgn) Pen) insulin lispro 100 unit/mL See Rx Instructions .Route .COMPLEX 05/04/23 05/04/23 History subcutaneous pen metformin 500 mg tablet,extended 1,000 mg PO BID 05/04/23 05/04/23 History release 24 hr rosuvastatin 5 mg tablet 5 mg PO QAM 05/04/23 05/04/23 History Past Med/Surg History Medical History Melanoma Diabetes with ketoacidosis Diabetes Surgical History Hx of melanoma excision Social History Smoking Status: Never smoker Hx Alcohol Use: Yes Alcohol type: wine Hx Substance Use: No Preferred Language: Occitan Communication Ability: Effective Receiver Stocker Required: No Beliefs That Will Affect Care: None Current Living Situation: Spouse Feels Safe at Home: Yes Assistive Devices: Glasses Review of Systems Review of Systems: All systems reviewed & are unremarkable except as noted in HPI & below Physical Exam Physical Exam: General-Not in distress Head- atraumatic Eyes- PERRL. ENT- oropharynx dry. Neck- supple, no JVD. Lungs- clear to auscultation no wheezing or crackles. Heart- regular rhythm; no murmur, no gallop. Abdomen- normal bowel sounds, soft, nontender, no distension Extremities- no pretibial edema, no erythema seen Neuro- alert, oriented x 3; PERRL, no facial palsy; no dysarthria; moves extremities. Skin- warm & dry Results & Data Results & Data Vital Signs (Past 12 Hours) Vital Signs Temp Pulse Pulse Resp BP BP Pulse Ox 05/04/23 22:22 126 H 05/04/23 19:36 98 05/04/23 19:30 93 H 18 106/85 98 05/04/23 18:11 98 H 05/04/23 17:17 104 H 24 126/83 99 05/04/23 16:15 36.7 C 113 H 20 126/79 100 O2 Del Method 05/04/23 22:22 05/04/23 19:36 Room Air 05/04/23 19:30 Room Air 05/04/23 18:11 05/04/23 17:17 Room Air 05/04/23 16:15 Room Air Diagnostic Findings Laboratory Results WBC 11.64 K/ul (4.8-10.8) H 05/04/23 16:30 RBC 4.28 M/uL (4.20-5.40) 05/04/23 16:30 Hgb 10.3 g/dl (12.0-16.0) L 05/04/23 16:30 Hct 32.9 % (37.0-47.0) L 05/04/23 16:30 MCV 76.9 fL (80.0-100.0) L 05/04/23 16:30 MCH 24.1 pg (25.0-34.0) L 05/04/23 16:30 MCHC 31.3 g/dL (32.0-36.0) L 05/04/23 16:30 RDW Std Deviation 49.9 fL (36.4-46.3) H 05/04/23 16: RDW Coeff of Maribel 18.1 % (11.5-14.5) H 05/04/23 16:30 Plt Count 266 K/uL (130-400) 05/04/23 16:30 MPV 10.9 fL (9.4-12.4) 05/04/23 16:30 Immature Gran % (Auto) 0.6 % 05/04/23 16:30 Neut % (Auto) 90.9 % 05/04/23 16:30 Lymph % (Auto) 4.3 % 05/04/23 16:30 [place] % (Auto) 4.0 % 05/04/23 16:30 Eos % (Auto) 0.0 % 05/04/23 16:30 Baso % (Auto) 0.2 % 05/04/23 16:30 Neut # (Auto) 10.59 K/uL (1.40-6.50) H 05/04/23 16:30 Lymph # (Auto) 0.50 K/uL (1.20-3.40) L 05/04/23 16:30 [place] # (Auto) 0.46 K/uL (0.11-0.59) 05/04/23 16:30 Eos # (Auto) 0.00 K/uL (0.00-0.50) 05/04/23 16:30 Baso # (Auto) 0.02 K/uL (0.00-0.20) 05/04/23 16:30 Immature Gran # (Auto) 0.07 K/uL (0.01-0.20) 05/04/23 16:30 Tear Drop Cells 1+ 05/04/23 16:30 Echinocytes 1+ 05/04/23 16:30 VBG pH 7.36 (7.36-7.41) 05/04/23 16:30 VBG pCO2 39 mmHg (38-50) 05/04/23 16:30 VBG pO2 43 mmHg 05/04/23 16:30 VBG HCO3 22 mmol/L 05/04/23 16:30 VBG O2 Saturation 71.7 % 05/04/23 16:30 VBG Base Excess -3.1 mEq/L 05/04/23 16:30 Sodium 130 mmol/L (136-145) L 05/04/23 16:30 Potassium 4.1 mmol/L (3.5-5.1) 05/04/23 16:30 Chloride 98 mmol/L (98-107) 05/04/23 16:30 Carbon Dioxide 22 mmol/L (21-32) 05/04/23 16:30 Anion Gap 10 (3-11) 05/04/23 16:30 BUN 11 mg/dl (6-23) 05/04/23 16:30 Creatinine 1.08 mg/dl (0.6-1.2) 05/04/23 16:30 Est Cr Clr Drug Dosing 61.1 ml/min 05/04/23 16:30 Est GFR ( Amer) 65.1 ml/min 05/04/23 16:30 Est GFR (Non-Af Amer) 56.1 ml/min 05/04/23 16:30 BUN/Creatinine Ratio 10.2 (10-20) 05/04/23 16:30 Glucose 682 mg/dl (70-99(Fasting)) H* 05/04/23 16:30 POC Glucose 378 mg/dl (70-99) H* 05/04/23 23:01 Calcium 9.1 mg/dl (8.6-10.3) 05/04/23 16:30 Total Bilirubin 1.0 mg/dl (0.2-1.0) 05/04/23 16:30 AST 31 U/L (13-39) 05/04/23 16:30 ALT 25 U/L (7-52) 05/04/23 16:30 Alkaline Phosphatase 134 U/L (34-104) H 05/04/23 16:30 Troponin I High Sens 8.9 pg/ml (0-14) D 05/04/23 19:32 Total Protein 7.0 gm/dl (6.0-8.3) 05/04/23 16:30 Albumin 3.2 gm/dl (3.4-5.0) L 05/04/23 16:30 Globulin 3.8 gm/dl (2.5-4.0) 05/04/23 16:30 Albumin/Globulin Ratio 0.8 (0.9-2) L 05/04/23 16:30 Urine Color Yellow 05/04/23 16:30 Urine Appearance Clear (Clear) 05/04/23 16:30 Urine pH 6.0 (4.5-7.5) 05/04/23 16:30 Ur Specific [place] 1.035 (1.000-1.030) H 05/04/23 16:30 Urine Protein 1+ (Negative) H 05/04/23 16:30 Urine Glucose (UA) 3+ (Negative) H 05/04/23 16:30 Urine Ketones Trace (Negative) H 05/04/23 16:30 Urine Blood 1+ (Negative) H 05/04/23 16:30 Urine Nitrite Negative (Negative) 05/04/23 16:30 Urine Bilirubin Negative (Negative) 05/04/23 16:30 Urine Urobilinogen Negative (Negative) 05/04/23 16:30 Ur Leukocyte Esterase Negative (Negative) 05/04/23 16:30 Urine WBC (Auto) 1-5 /hpf (0-5) 05/04/23 16:30 Urine RBC (Auto) 5-10 /hpf (0-4) H 05/04/23 16:30 U Hyaline Cast (Auto) 0 /lpf (0-5) 05/04/23 16:30 U Epithel Cells (Auto) 10-20 /lpf (0-5) H 05/04/23 16:30 Urine Bacteria (Auto) 1+ (Negative) H 05/04/23 16:30 SARS-CoV-2 (PCR) POSITIVE (Negative) A* 05/04/23 16:05 Influenza Type A (PCR) Negative (Neg) 05/04/23 16:05 Influenza Type B (PCR) Negative (Neg) 05/04/23 16:05 RSV (RT-PCR) Negative (Neg) 05/04/23 16:05 Impressions Chest X-Ray 05/04/23 16:16 XR chest 1V not portable HISTORY: cough, illness COMPARISON: Chest 03/06/2020. FINDINGS: No pneumothorax. No pleural effusions. The lungs are clear. The heart is normal in size. No acute fractures identified. IMPRESSION: No acute process. ACT 112: Negative or not required by law. Electronically signed by: Cirilo Harrison M.D. 05/04/2023 5:07 PM ECG Additional Comments: ECG. Normal sinus rhythm rate of 96. Nonspecific T wave abnormalities. Code Status & VTE Plan VTE Prophylaxis Plan VTE Prophylaxis will be ordered: Yes
[2023-05-04] MEDS ORDERED: cefTRIAXone SODIUM 2000MG/50ML D5W IV ONE (23:44)
[2023-05-05] MEDS ORDERED: PHARMACY GLYCEMIC MGMT CONSULT PRN (00:29)
[2023-05-05] MEDS ORDERED: GLUCOSE 40% GEL 15 GM TUBE PO PRN (00:29)
[2023-05-05] MEDS ORDERED: GLUCAGON FOR INJ 1 MG VIAL SQ PRN (00:29)
[2023-05-05] MEDS ORDERED: DEXTROSE 50% 50 ML SYRINGE IV PRN (00:29)
[2023-05-05] MEDS ORDERED: GLUCOSE 10 TAB/TUBE PO PRN (00:29)
[2023-05-05] MEDS ORDERED: NITROGLYCERIN SL 0.4 MG/TAB TAB SL PRN (00:29)
[2023-05-05] MEDS ORDERED: ONDANSETRON INJ 2 MG/ML 2 ML VIAL IV PRN (00:29)
[2023-05-05] MEDS ORDERED: INSULIN HUMAN REGULAR PER UNIT 5 UNITS in SYRINGE 4.95 ML IV STA (01:11)
[2023-05-05] MEDS ORDERED: ONDANSETRON INJ 2 MG/ML 2 ML VIAL ONE (01:23)
[2023-05-05] MEDS ORDERED: ENOXAPARIN INJ 40 MG/0.4 ML SYR SQ SCH (01:30)
[2023-05-05] MEDS ORDERED: KETOROLAC 30 MG/ML VIAL IV ONE (01:31)
[2023-05-05] MEDS ORDERED: METOPROLOL TARTRATE 1 MG/ML VIAL IV STA ×2 (02:00→07:38)
[2023-05-05] MEDS ORDERED: ACETAMINOPHEN 325 MG TAB PO ONE (03:00)
[2023-05-05] MEDS ORDERED: Heparin IV Adult Wt-Based Standard *NO* INITIAL Bolus Protocol IV STA (03:12)
[2023-05-05] MEDS ORDERED: SODIUM CHLORIDE 0.9% 500 ML IV SCH (03:15)
[2023-05-05] MEDS ORDERED: HEPARIN 25000 UNIT/500 ML D5W IV ONE (03:52)
[2023-05-05] MEDS: INSULIN ASPART PER UNIT CHARGE SC SCH ×6 (04:14→23:49)
[2023-05-05] MEDS: HEPARIN SODIUM/DEXTROSE 25,000 UNITS/500 ML BAG IV SCH (04:15)
[2023-05-05] MEDS: SODIUM CHLORIDE 0.9% 1,000 ML IV SCH ×5 (04:23→21:45)
[2023-05-05 04:55] LABS: Basophils # (auto) 0.02 K/uL (0.00-0.20); Basophils % (auto) 0.2 %; Eosinophils # (auto) 0.01 K/uL (0.00-0.50); Eosinophils % (auto) 0.1 %; Hematocrit (blood only) 27.9 % (37.0-47.0); Hemoglobin 8.5 g/dl (12.0-16.0); Immature Granulocytes # (auto) 0.06 K/uL (0.01-0.20); Immature Granulocytes % (auto) 0.7 %; Lymphocytes # (auto) 1.42 K/uL (1.20-3.40); Lymphocytes % (auto) 16.7 %; Mean Corpuscular Hemoglobin 23.4 pg (25.0-34.0); Mean Corpuscular Hgb Conc 30.5 g/dL (32.0-36.0); Mean Corpuscular Volume 76.9 fL (80.0-100.0); Mean Platelet Volume 11.4 fL (9.4-12.4); Monocytes # (auto) 0.58 K/uL (0.11-0.59); Monocytes % (auto) 6.8 %; Neutrophils # (auto) 6.39 K/uL (1.40-6.50); Neutrophils % (auto) 75.5 %; Platelet Count 209 K/uL (130-400); RDW Coefficient of Variation 17.5 % (11.5-14.5); RDW Standard Deviation 48.8 fL (36.4-46.3); Red Blood Count 3.63 M/uL (4.20-5.40); White Blood Count 8.48 K/ul (4.8-10.8)
[2023-05-05 04:58] LABS: Anion Gap 8 (3-11); BUN Creatinine Ratio 10.9 (10-20); Blood Urea Nitrogen 11 mg/dl (6-23); Calcium 7.8 mg/dl (8.6-10.3); Carbon Dioxide 20 mmol/L (21-32); Chloride 107 mmol/L (98-107); Creatinine Clr Calc Pharmacy 65.3 ml/min; Est GFR (African American) 70.6 ml/min; Est GFR (Non-African American) 60.9 ml/min; Glucose 236 mg/dl (70-99(Fasting)); Potassium 3.8 mmol/L (3.5-5.1); Sodium 135 mmol/L (136-145)
[2023-05-05 05:06] LABS: Iron < 10 mcg/dl (35-150); Magnesium 1.4 mg/dl (1.7-2.4); Unsaturated Iron Binding Cap 208 mcg/dl (155-355)
[2023-05-05 05:11] LABS: Partial Thromboplastin Ratio 1.1; Partial Thromboplastin Time 30 Seconds (21-31)
[2023-05-05 07:26] LABS: Estimated Average Glucose 266 mg/dl; Hemoglobin A1C 10.9 % (4.5-5.6)
[2023-05-05] MEDS ORDERED: METOPROLOL TARTRATE 1 MG/ML VIAL IV ONE (07:40)
[2023-05-05] MEDS ORDERED: MAGNESIUM SULFATE 1GM / D5W BAG IV ONE (07:41)
[2023-05-05] MEDS: MAGNESIUM SULFATE / D5W 1 GM/100 ML BAG IV SCH ×2 (07:48→10:44)
[2023-05-05] MEDS: ACETAMINOPHEN 325 MG TAB PO PRN ×2 (07:56→15:15)
[2023-05-05] MEDS ORDERED: LIDOCAINE 5% 1 PATCH TD STA (07:59)
--- NOTE | 2023-05-05 08:16 | Hospitalist Progress Note ---
Date of Service May 05, 2023 Assessment & Plan (1) Acute hyperglycemia: Plan: 57-year-old female with past medical history significant for type 2 diabetes, hyperlipidemia, extrinsic asthma, GERD, melanoma of right lower leg, history of iron deficiency, history of thrombocytopenia, history of depression, generalized anxiety disorder presents with ongoing nausea and shortness of breath for a week but lately she has been having lot of chills and bodyaches which prompted her to come to the ER. Having nausea and vomiting. Feeling flushed. No headache. Denies any chest pain. No abdominal pain. States earlier had diarrhea. Later patient developed rapid A-fib improved with IV Lopressor Hyperglycemia History of diabetes current A1c 10.9% On presentation sugar 682 Not in DKA Received IV insulin 10 units in the ER Cont. home Lantus 30 units Insulin sliding scale Hold metformin cont. IV fluids normal saline Closely monitor the blood sugars Glycemic pharmacy consulted COVID Saturating 97% on RA COVID precautions Closely monitor Rapid A-fib Improved initially with IV Lopressor Started on IV heparin cardiac enzymes trended and echo obtained Echo -A-fib with mildly elevated ventricular rate in the range of 100s to 110s bpm present during echocardiogram exam. There is borderline concentric LVH. No regional wall motion abnormalities noted. LVEF 55 to 60%. Left atrial size is normal. There is trace mitral regurg. Doppler findings do not suggest pulmonary hypertension. There is no prior study available for comparison. Cardiology consulted - started on metoprolol 12.5 mg QID , also received digoxin x2 Possible UTI Rocephin Follow cultures Hyperlipidemia On statin Anemia History of iron deficiency Hemoglobin 10.3 Will follow stool for Hemoccult's Follow hemoglobin while on IV heparin Iron studies, iron level low Vitamin B12 level normal folate level pending Follow labs Mild elevation of troponin Initial troponin 29 trended enzymes and obtained echo as above Depression On citalopram Hypertension On lisinopril - hold for now DVT prophylaxis IV heparin. Follow Hemoccult studies Disposition Telemetry Admission and Anticipated Discharge Date Admission Date: May 04, 2023 Subjective Pt seen in follow up of + covid 19, Rapid Afib, hyperglycemia (uncontrolled DM), poss. UTI Currently sitting up in bed in NAD, reports feeling better overall since this AM Denies having any chest pain or palpitations. Says she feels flushed when she is in afib w/ rvr. no abd. pain, n/v however several days ago she had upper resp. symptoms and diarrhea Review of Systems Review of Systems: All systems reviewed & are unremarkable except as noted in Subjective Physical Exam Physical Exam: General- WD/WN F in NAD, on RA Head- atraumatic Eyes- PERRL. Neck- supple, no JVD. Lungs- clear to auscultation no wheezing or crackles. Heart- irregular, tachycardic; no murmur, no gallop. Abdomen- normal bowel sounds, soft, nontender, no distension Extremities- no pretibial edema, no erythema seen Neuro- alert, oriented x 3; PERRL, no facial palsy; no dysarthria; moves extremities. Skin- warm & dry Results & Data Results & Data Vital Signs (Past 12 Hours) Vital Signs Temp Pulse Pulse Resp BP BP Pulse Ox 05/05/23 07:49 104 H 104/74 05/05/23 07:22 103 H 05/05/23 06:33 108 H 15 104/77 96 05/05/23 04:23 84 18 106/67 100 05/05/23 02:47 85 19 96/61 L 05/05/23 02:47 05/05/23 02:41 90 05/05/23 02:25 137 H 92/64 L 05/05/23 02:14 105 H 19 82/56 L 95 05/05/23 02:03 140 H 111/79 05/05/23 01:40 36.9 C 05/05/23 01:39 144 H 19 111/79 93 05/04/23 23:30 118 H 21 104/73 95 05/04/23 22:22 126 H Pulse Ox O2 Del Method O2 Del Method 05/05/23 07:49 05/05/23 07:22 05/05/23 06:33 Room Air 05/05/23 04:23 Room Air 05/05/23 02:47 05/05/23 02:47 96 Room Air 05/05/23 02:41 05/05/23 02:25 05/05/23 02:14 Room Air 05/05/23 02:03 05/05/23 01:40 05/05/23 01:39 Room Air 05/04/23 23:30 Room Air 05/04/23 22:22 Laboratory Results 05/05/23 05/05/23 05/05/23 Range/Units 07:29 03:54 02:41 WBC 8.48 (4.8-10.8) K/ul RBC 3.63 L (4.20-5.40) M/uL Hgb 8.5 L (12.0-16.0) g/dl Hct 27.9 L (37.0-47.0) % MCV 76.9 L (80.0-100.0) fL MCH 23.4 L (25.0-34.0) pg MCHC 30.5 L (32.0-36.0) g/dL RDW Std Deviation 48.8 H (36.4-46.3) fL RDW Coeff of Maribel 17.5 H (11.5-14.5) % Plt Count 209 (130-400) K/uL MPV 11.4 (9.4-12.4) fL Immature Gran % (Auto) 0.7 % Neut % (Auto) 75.5 % Lymph % (Auto) 16.7 % [place] % (Auto) 6.8 % Eos % (Auto) 0.1 % Baso % (Auto) 0.2 % Neut # (Auto) 6.39 (1.40-6.50) K/uL Lymph # (Auto) 1.42 (1.20-3.40) K/uL [place] # (Auto) 0.58 (0.11-0.59) K/uL Eos # (Auto) 0.01 (0.00-0.50) K/uL Baso # (Auto) 0.02 (0.00-0.20) K/uL Immature Gran # (Auto) 0.06 (0.01-0.20) K/uL Tear Drop Cells Echinocytes APTT 30 (21-31) Seconds PTT Ratio 1.1 VBG pH (7.36-7.41) VBG pCO2 (38-50) mmHg VBG pO2 mmHg VBG HCO3 mmol/L VBG O2 Saturation % VBG Base Excess mEq/L Sodium 135 L (136-145) mmol/L Potassium 3.8 (3.5-5.1) mmol/L Chloride 107 (98-107) mmol/L Carbon Dioxide 20 L (21-32) mmol/L Anion Gap 8 (3-11) BUN 11 (6-23) mg/dl Creatinine 1.01 (0.6-1.2) mg/dl Est Cr Clr Drug Dosing 65.3 ml/min Est GFR ( Amer) 70.6 ml/min Est GFR (Non-Af Amer) 60.9 ml/min BUN/Creatinine Ratio 10.9 (10-20) Glucose 236 H (70-99(Fasting)) mg/dl POC Glucose 184 H 237 H (70-99) mg/dl Estimat Average Glucose 266 mg/dl Hemoglobin A1c 10.9 H (4.5-5.6) % Calcium 7.8 L (8.6-10.3) mg/dl Magnesium 1.4 L (1.7-2.4) mg/dl Iron < 10 L (35-150) mcg/dl TIBC TNP Unsaturated IBC 208 (155-355) mcg/dl Transferrin % Sat TNP Total Bilirubin (0.2-1.0) mg/dl AST (13-39) U/L ALT (7-52) U/L Alkaline Phosphatase (34-104) U/L Troponin I High Sens 88.0 H* D (0-14) pg/ml Total Protein (6.0-8.3) gm/dl Albumin (3.4-5.0) gm/dl Globulin (2.5-4.0) gm/dl Albumin/Globulin Ratio (0.9-2) Vitamin B12 1079 H (180-914) pg/ml RBC Folate Pending Urine Color Urine Appearance (Clear) Urine pH (4.5-7.5) Ur Specific [place] (1.000-1.030) Urine Protein (Negative) Urine Glucose (UA) (Negative) Urine Ketones (Negative) Urine Blood (Negative) Urine Nitrite (Negative) Urine Bilirubin (Negative) Urine Urobilinogen (Negative) Ur Leukocyte Esterase (Negative) Urine WBC (Auto) (0-5) /hpf Urine RBC (Auto) (0-4) /hpf U Hyaline Cast (Auto) (0-5) /lpf U Epithel Cells (Auto) (0-5) /lpf Urine Bacteria (Auto) (Negative) SARS-CoV-2 (PCR) (Negative) Influenza Type A (PCR) (Neg) Influenza Type B (PCR) (Neg) RSV (RT-PCR) (Neg) 05/05/23 05/05/2324 Range/Units 01:13 00:23 23:01 WBC (4.8-10.8) K/ul RBC (4.20-5.40) M/uL Hgb (12.0-16.0) g/dl Hct (37.0-47.0) % MCV (80.0-100.0) fL MCH (25.0-34.0) pg MCHC (32.0-36.0) g/dL RDW Std Deviation (36.4-46.3) fL RDW Coeff of Maribel (11.5-14.5) % Plt Count (130-400) K/uL MPV (9.4-12.4) fL Immature Gran % (Auto) % Neut % (Auto) % Lymph % (Auto) % [place] % (Auto) % Eos % (Auto) % Baso % (Auto) % Neut # (Auto) (1.40-6.50) K/uL Lymph # (Auto) (1.20-3.40) K/uL [place] # (Auto) (0.11-0.59) K/uL Eos # (Auto) (0.00-0.50) K/uL Baso # (Auto) (0.00-0.20) K/uL Immature Gran # (Auto) (0.01-0.20) K/uL Tear Drop Cells Echinocytes APTT (21-31) Seconds PTT Ratio VBG pH (7.36-7.41) VBG pCO2 (38-50) mmHg VBG pO2 mmHg VBG HCO3 mmol/L VBG O2 Saturation % VBG Base Excess mEq/L Sodium (136-145) mmol/L Potassium (3.5-5.1) mmol/L Chloride (98-107) mmol/L Carbon Dioxide (21-32) mmol/L Anion Gap (3-11) BUN (6-23) mg/dl Creatinine (0.6-1.2) mg/dl Est Cr Clr Drug Dosing ml/min Est GFR ( Amer) ml/min Est GFR (Non-Af Amer) ml/min BUN/Creatinine Ratio (10-20) Glucose 394 H* (70-99(Fasting)) mg/dl POC Glucose 343 H* 378 H* (70-99) mg/dl Estimat Average Glucose mg/dl Hemoglobin A1c (4.5-5.6) % Calcium (8.6-10.3) mg/dl Magnesium (1.7-2.4) mg/dl Iron (35-150) mcg/dl TIBC Unsaturated IBC (155-355) mcg/dl Transferrin % Sat Total Bilirubin (0.2-1.0) mg/dl AST (13-39) U/L ALT (7-52) U/L Alkaline Phosphatase (34-104) U/L Troponin I High Sens (0-14) pg/ml Total Protein (6.0-8.3) gm/dl Albumin (3.4-5.0) gm/dl Globulin (2.5-4.0) gm/dl Albumin/Globulin Ratio (0.9-2) Vitamin B12 (180-914) pg/ml RBC Folate Urine Color Urine Appearance (Clear) Urine pH (4.5-7.5) Ur Specific [place] (1.000-1.030) Urine Protein (Negative) Urine Glucose (UA) (Negative) Urine Ketones (Negative) Urine Blood (Negative) Urine Nitrite (Negative) Urine Bilirubin (Negative) Urine Urobilinogen (Negative) Ur Leukocyte Esterase (Negative) Urine WBC (Auto) (0-5) /hpf Urine RBC (Auto) (0-4) /hpf U Hyaline Cast (Auto) (0-5) /lpf U Epithel Cells (Auto) (0-5) /lpf Urine Bacteria (Auto) (Negative) SARS-CoV-2 (PCR) (Negative) Influenza Type A (PCR) (Neg) Influenza Type B (PCR) (Neg) RSV (RT-PCR) (Neg) 05/04/23 05/04/23 05/04/23 Range/Units 19:58 19:32 16:30 WBC 11.64 H (4.8-10.8) K/ul RBC 4.28 (4.20-5.40) M/uL Hgb 10.3 L (12.0-16.0) g/dl Hct 32.9 L (37.0-47.0) % MCV 76.9 L (80.0-100.0) fL MCH 24.1 L (25.0-34.0) pg MCHC 31.3 L (32.0-36.0) g/dL RDW Std Deviation 49.9 H (36.4-46.3) fL RDW Coeff of Maribel 18.1 H (11.5-14.5) % Plt Count 266 (130-400) K/uL MPV 10.9 (9.4-12.4) fL Immature Gran % (Auto) 0.6 % Neut % (Auto) 90.9 % Lymph % (Auto) 4.3 % [place] % (Auto) 4.0 % Eos % (Auto) 0.0 % Baso % (Auto) 0.2 % Neut # (Auto) 10.59 H (1.40-6.50) K/uL Lymph # (Auto) 0.50 L (1.20-3.40) K/uL [place] # (Auto) 0.46 (0.11-0.59) K/uL Eos # (Auto) 0.00 (0.00-0.50) K/uL Baso # (Auto) 0.02 (0.00-0.20) K/uL Immature Gran # (Auto) 0.07 (0.01-0.20) K/uL Tear Drop Cells 1+ Echinocytes 1+ APTT (21-31) Seconds PTT Ratio VBG pH 7.36 (7.36-7.41) VBG pCO2 39 (38-50) mmHg VBG pO2 43 mmHg VBG HCO3 22 mmol/L VBG O2 Saturation 71.7 % VBG Base Excess -3.1 mEq/L Sodium 130 L (136-145) mmol/L Potassium 4.1 (3.5-5.1) mmol/L Chloride 98 (98-107) mmol/L Carbon Dioxide 22 (21-32) mmol/L Anion Gap 10 (3-11) BUN 11 (6-23) mg/dl Creatinine 1.08 (0.6-1.2) mg/dl Est Cr Clr Drug Dosing 61.1 ml/min Est GFR ( Amer) 65.1 ml/min Est GFR (Non-Af Amer) 56.1 ml/min BUN/Creatinine Ratio 10.2 (10-20) Glucose 682 H* (70-99(Fasting)) mg/dl POC Glucose 324 H* (70-99) mg/dl Estimat Average Glucose mg/dl Hemoglobin A1c (4.5-5.6) % Calcium 9.1 (8.6-10.3) mg/dl Magnesium (1.7-2.4) mg/dl Iron (35-150) mcg/dl TIBC Unsaturated IBC (155-355) mcg/dl Transferrin % Sat Total Bilirubin 1.0 (0.2-1.0) mg/dl AST 31 (13-39) U/L ALT 25 (7-52) U/L Alkaline Phosphatase 134 H (34-104) U/L Troponin I High Sens 8.9 D 29.2 H (0-14) pg/ml Total Protein 7.0 (6.0-8.3) gm/dl Albumin 3.2 L (3.4-5.0) gm/dl Globulin 3.8 (2.5-4.0) gm/dl Albumin/Globulin Ratio 0.8 L (0.9-2) Vitamin B12 (180-914) pg/ml RBC Folate Urine Color Yellow Urine Appearance Clear (Clear) Urine pH 6.0 (4.5-7.5) Ur Specific [place] 1.035 H (1.000-1.030) Urine Protein 1+ H (Negative) Urine Glucose (UA) 3+ H (Negative) Urine Ketones Trace H (Negative) Urine Blood 1+ H (Negative) Urine Nitrite Negative (Negative) Urine Bilirubin Negative (Negative) Urine Urobilinogen Negative (Negative) Ur Leukocyte Esterase Negative (Negative) Urine WBC (Auto) 1-5 (0-5) /hpf Urine RBC (Auto) 5-10 H (0-4) /hpf U Hyaline Cast (Auto) 0 (0-5) /lpf U Epithel Cells (Auto) 10-20 H (0-5) /lpf Urine Bacteria (Auto) 1+ H (Negative) SARS-CoV-2 (PCR) (Negative) Influenza Type A (PCR) (Neg) Influenza Type B (PCR) (Neg) RSV (RT-PCR) (Neg) 05/04/23 05/04/23 Range/Units 16:17 16:05 WBC (4.8-10.8) K/ul RBC (4.20-5.40) M/uL Hgb (12.0-16.0) g/dl Hct (37.0-47.0) % MCV (80.0-100.0) fL MCH (25.0-34.0) pg MCHC (32.0-36.0) g/dL RDW Std Deviation (36.4-46.3) fL RDW Coeff of Maribel (11.5-14.5) % Plt Count (130-400) K/uL MPV (9.4-12.4) fL Immature Gran % (Auto) % Neut % (Auto) % Lymph % (Auto) % [place] % (Auto) % Eos % (Auto) % Baso % (Auto) % Neut # (Auto) (1.40-6.50) K/uL Lymph # (Auto) (1.20-3.40) K/uL [place] # (Auto) (0.11-0.59) K/uL Eos # (Auto) (0.00-0.50) K/uL Baso # (Auto) (0.00-0.20) K/uL Immature Gran # (Auto) (0.01-0.20) K/uL Tear Drop Cells Echinocytes APTT (21-31) Seconds PTT Ratio VBG pH (7.36-7.41) VBG pCO2 (38-50) mmHg VBG pO2 mmHg VBG HCO3 mmol/L VBG O2 Saturation % VBG Base Excess mEq/L Sodium (136-145) mmol/L Potassium (3.5-5.1) mmol/L Chloride (98-107) mmol/L Carbon Dioxide (21-32) mmol/L Anion Gap (3-11) BUN (6-23) mg/dl Creatinine (0.6-1.2) mg/dl Est Cr Clr Drug Dosing ml/min Est GFR ( Amer) ml/min Est GFR (Non-Af Amer) ml/min BUN/Creatinine Ratio (10-20) Glucose (70-99(Fasting)) mg/dl POC Glucose > 600 H* (70-99) mg/dl Estimat Average Glucose mg/dl Hemoglobin A1c (4.5-5.6) % Calcium (8.6-10.3) mg/dl Magnesium (1.7-2.4) mg/dl Iron (35-150) mcg/dl TIBC Unsaturated IBC (155-355) mcg/dl Transferrin % Sat Total Bilirubin (0.2-1.0) mg/dl AST (13-39) U/L ALT (7-52) U/L Alkaline Phosphatase (34-104) U/L Troponin I High Sens (0-14) pg/ml Total Protein (6.0-8.3) gm/dl Albumin (3.4-5.0) gm/dl Globulin (2.5-4.0) gm/dl Albumin/Globulin Ratio (0.9-2) Vitamin B12 (180-914) pg/ml RBC Folate Urine Color Urine Appearance (Clear) Urine pH (4.5-7.5) Ur Specific [place] (1.000-1.030) Urine Protein (Negative) Urine Glucose (UA) (Negative) Urine Ketones (Negative) Urine Blood (Negative) Urine Nitrite (Negative) Urine Bilirubin (Negative) Urine Urobilinogen (Negative) Ur Leukocyte Esterase (Negative) Urine WBC (Auto) (0-5) /hpf Urine RBC (Auto) (0-4) /hpf U Hyaline Cast (Auto) (0-5) /lpf U Epithel Cells (Auto) (0-5) /lpf Urine Bacteria (Auto) (Negative) SARS-CoV-2 (PCR) POSITIVE A* (Negative) Influenza Type A (PCR) Negative (Neg) Influenza Type B (PCR) Negative (Neg) RSV (RT-PCR) Negative (Neg) Medications Administered Current Inpatient Medications Acetaminophen (Acetaminophen 325 Mg Tab) 650 mg PO Q4H PRN PRN Reason: Pain or Fever Stop: 06/04/23 00:28 Last Admin: 05/05/23 07:56 Dose: 650 mg Citalopram Hydrobromide (Citalopram 20 Mg Tab) 10 mg PO HS KATHY Stop: 06/04/23 20:59 Cyanocobalamin (Cyanocobalamin (B-12) 500 Mcg Tablet) 500 mcg PO QAM KATHY Stop: 06/04/23 08:59 Dextrose (Dextrose 50% 50 Ml Syringe) 25 - 50 ml IV UD PRN; Protocol PRN Reason: Hypoglycemia Protocol Stop: 06/04/23 00:28 Glucagon (Glucagon For Inj 1 Mg Vial) 1 mg SQ UD PRN; Protocol PRN Reason: Hypoglycemia Protocol Stop: 06/04/23 00:28 Glucose (Glucose 10 Tab/Tube) 4 - 8 tab PO UD PRN; Protocol PRN Reason: Hypoglycemia Treatment Stop: 06/04/23 00:28 Glucose (Glucose 40% Gel 15 Gm Tube) 15 - 30 gm PO UD PRN; Protocol PRN Reason: Hypoglycemia Protocol Stop: 06/04/23 00:28 Ceftriaxone Sodium 2,000 mg/ (Dextrose) 50 mls @ 100 mls/hr IV Q24H [facility]; Protocol Stop: 05/14/23 22:59 Sodium Chloride (Nss) 1,000 mls @ 200 mls/hr IV .Q5H [facility] Stop: 06/04/23 00:28 Last Admin: 05/05/23 04:23 Dose: 200 mls/hr Heparin Sodium/Dextrose (Heparin Sodium/Dextrose) 25,000 units in 500 mls @ 25 mls/hr IV .Q20H [facility]; Protocol Stop: 06/04/23 03:29 Last Admin: 05/05/23 04:15 Dose: 1,250 units/hr, 25 mls/hr Magnesium Sulfate/Dextrose (Magnesium Sulfate / D5w) 1 gm in 100 mls @ 50 mls/hr IV Q2H KATHY Stop: 05/05/23 11:29 Last Admin: 05/05/23 07:48 Dose: 50 mls/hr Insulin Aspart (Insulin Aspart Per Unit Charge) 0 units SC ACHS [facility] Stop: 06/04/23 03:29 Last Admin: 05/05/23 04:14 Dose: 5 units Insulin Glargine (Lantus Per Unit Charge) 30 units SQ HS [facility] Stop: 06/04/23 20:59 Insulin Glargine (Lantus Per Unit Charge) 20 units SC 0900 KATHY Stop: 05/05/23 12:00 Lisinopril (Lisinopril 2.5 Mg Tab) 2.5 mg PO QAM [facility] Stop: 06/04/23 08:59 Magnesium Oxide (Magnesium Oxide 400 Mg Tab) 400 mg PO BID [facility] Stop: 06/04/23 08:59 Miscellaneous (Carbohydrates For Hypoglycemia ) 15 - 30 gm PO UD PRN PRN Reason: Hypoglycemia Protocol Stop: 06/04/23 00:28 Miscellaneous (Remove Lidoderm Patch) 1 each N/A DAILY@2100 [facility] Stop: 06/04/23 20:59 Miscellaneous Information (Pharmacy Glycemic Mgmt Consult) 1 each N/A UD PRN PRN Reason: Consult Stop: 06/04/23 00:28 Nitroglycerin (Nitroglycerin Sl 0.4 Mg/Tab Tab) 0.4 mg SL Q5M PRN PRN Reason: Chest Pain Stop: 06/04/23 00:28 Ondansetron HCl (Ondansetron Inj 2 Mg/Ml 2 Ml Vial) 4 mg IV Q6H PRN PRN Reason: Nausea Stop: 06/04/23 00:28 Last Admin: 05/05/23 01:46 Dose: 4 mg Rosuvastatin Calcium (Rosuvastatin Calcium 5 Mg Tab) 5 mg PO QAM [facility] Stop: 06/04/23 08:59
[2023-05-05] MEDS ORDERED: LANTUS PER UNIT CHARGE SC SCH (09:00)
[2023-05-05] MEDS ORDERED: lisinopril 2.5 MG TAB PO SCH (09:00)
[2023-05-05] MEDS ORDERED: ALBUMIN 25% 25 GM/100 ML VIAL IV ONE (09:25)
--- OUTSIDE RECORDS SUMMARY | 2023-05-05 09:48 | External Medical Summary | Summary of Care ---
Author Name Unknown Organization [facility] Address [address] [facility] [address] Phone [phone] Care Team Providers Care Tools Developer Name Role Phone Rick Morgan MD Primary Care Provider + Reason for Visit * Reason Onset Date Comments Medication Refill 04/16/2023 Encounter Details Date Type Department Care Team (Late st Contact Info) Description 04/16/2023 Refill General Internal Medicine [facility] [address] [place] [address] Rick Morgan MD [address] [facility] [address] Type 2 diabetes mellitus with hemoglobin A1c goal of less than 7.0% ([facility]) Allergies Active Allergy Reactions Criticality Noted Date Comments Aspirin 02/22/2015 Codeine Anaphylaxis High 05/22/2012 Empagliflozin High 03/16/2020 Morphine And Related 11/16/1999 Extreme nausea and SOB 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 0 08/22/2017 Active Aspirin 81 MG Oral Tablet Delayed ReleaseIndication s:Type 2 diabetes mellitus with hemoglobin A1c goal of less than 7.0% (HCC) Take 1 Tablet by mouth in the morning. 100 Tab 5 02/14/2019 Active Estradiol 0.1 MG/GM Vaginal Cream (Estrace)Indicati ons:Postmenopausa l atrophic vaginitis Administer into the vagina 1 g in the morning. 42.5 g 3 06/09/2021 Active OneTouch Verio In Vitro Strip (Glucose Blood)Indications :Type 2 diabetes mellitus with hemoglobin A1c goal of less than 7.0% (HCC) USE TO CHECK BLOOD SUGARS FOUR TIMES A DAY DIRECTED BEFORE MEALS AND AT BEDTIME (AND WITH SYMPTOMS) E11.9 200 Strip 3 02/15/2022 Active Albuterol Sulfate HFA 108 (90 Base) MCG/ACT Inhalation Aerosol SolutionIndicatio ns:Post viral asthma Inhale 2 Puffs by mouth every 6 hours as needed for Shortness of Breath or Wheezing. 18 g 3 04/10/2022 Active Additional Information Patient not taking.Reported on 11/07/2022 BD Pen Needle Brooke U/F 32G X 4 MM (Insulin Pen Needle)Indication s:Type 2 diabetes mellitus with hemoglobin A1c goal of less than 7.0% (HCC) Use four times daily. 400 Each 3 06/08/2022 Active Dexcom G6 SensorIndications :Type 2 diabetes mellitus with hemoglobin A1c goal of less than 7.0% (HCC) Use as directed. Change every 10 days. 10 Each 3 07/20/2022 Active Dexcom G6 TransmitterIndica tions:Type 2 diabetes mellitus with hemoglobin A1c goal of less than 7.0% (HCC) Use as directed. Replace every 3 months 1 Each 3 07/20/2022 Active metFORMIN HCl ER 500 MG Oral Tablet Extended Release 24 Hour (Glucophage XR)Indications:Ty pe 2 diabetes mellitus with hemoglobin A1c goal of less than 7.0% (HCC) Take 2 Tablets by mouth in the morning and 2 Tablets before bedtime. 360 Tablet 3 07/26/2022 Active Citalopram Hydrobromide 40 MG Oral Tablet (CeleXA) TAKE 1 TABLET BY MOUTH IN THE MORNING 90 Tablet 2 11/19/2022 Active Lisinopril 2.5 MG Oral Tablet (Prinivil)Indicat ions:Type 2 diabetes mellitus with hemoglobin A1c goal of less than 7.0% (HCC) TAKE 1 TABLET BY MOUTH IN THE MORNING 90 Tablet 3 11/19/2022 Active Nitrofurantoin Monohyd Macro 100 MG Oral Capsule (Macrobid) Take 1 Capsule by mouth in the morning and 1 Capsule before bedtime. With food until gone. 14 Capsule 0 01/18/2023 Active Rosuvastatin Calcium 5 MG Oral Tablet (Crestor)Indicati ons:Hyperlipidemi a with target LDL less than 100 Take 1 Tablet by mouth in the morning. 30 Tablet 5 02/21/2023 Active Insulin Lispro (1 Unit Dial) 100 UNIT/ML Subcutaneous Solution Pen-injector (HumaLOG KwikPen)Indicatio ns:Type 2 diabetes mellitus with hemoglobin A1c goal of less than 7.0% (HCC) Inject 8 units with Breakfast and dinner, 12 units with lunch, PLUS correct factor of 1:45 over 120. Max daily dose of 55 units per day. 30 mL 3 03/12/2023 Active Insulin Glargine-yfgn 100 UNIT/ML Subcutaneous Solution (Semglee (yfgn))Indication s:Type 2 diabetes mellitus with hemoglobin A1c goal of less than 7.0% (HCC) Inject 30 Units under the skin at bedtime. 30 mL 3 03/13/2023 Active Ozempic (1 MG/DOSE) 4 MG/3ML Subcutaneous Solution Pen-injector (Semaglutide (1 MG/DOSE))Indicati ons:Type 2 diabetes mellitus with hemoglobin A1c goal of less than 7.0% (HCC) Inject 1 mg under the skin once a week. 9 mL 1 04/17/2023 Active Ozempic (1 MG/DOSE) 4 MG/3ML Subcutaneous Solution Pen-injector (Semaglutide (1 MG/DOSE))Indicati ons:Type 2 diabetes mellitus with hemoglobin A1c goal of less than 7.0% (HCC) Inject 1 mg under the skin once a week. 3 mL 11 04/10/2022 3 Discontinue d(Refill) documented as of this encounter (statuses as of 04/17/2023) Active Problems Problem Noted Date Diagnosed Date Melanoma of lower leg, right 06/09/2021 Type 2 diabetes mellitus with hyperglycemia 02/28 Hx of melanoma of skin 02/05/2020 Overview: Malignant Melanoma (R popliteal fossae 01/2020, Breslow depth 0.9mm) H/O dysplastic nevus 01/28/2020 Overview: Severely atypical nevus (R popliteal fossae 06/2013) Generalized anxiety disorder 05/29/2019 Hyperlipidemia with target LDL less than 100 Mild single current episode of major depressive disorder 08/17/2017 Type 2 diabetes mellitus wit h hemoglobin A1c goal of less than 7.0% 12/21/2015 Adjustment disorder with depressed mood 07/01/19 16 GERD (gastroesophageal reflux disease) 6 History of iron deficiency 07/29/2013 History of thrombocytopenia 07/29/2013 Dermatophytosis of nail 08/14/2006 No advance directive on file 01/30/2005 Overview: No, Advance Directive brochure offered , patient declined. Migraine with aura 10/06/2003 EXT ASTHMA W-O STAT ASTH documented as of this encounter (statuses as of 04/17/2023) Resolved Problems Problem Noted Date Diagnosed Date Resolved Date Depression 05/07/2015 07/01/2015 Obesity, Class II, BMI 35-39 .9, isolated (see actual BMI) 03/02/2015 01/10/2019 Iron deficiency anemia 08/14/200607/29 Thrombocytopenia 07/29/2013 documented as of this encounter (statuses as of 04/17/2023) Immunizations Name Administration Dates Next Due COVID-19 mRNA, LNP-s, No Pre serve, 2-Dose Series ([employer]) 02/09/2021,05/29/2020,05/08/2020 05/29/2020 Hepatitis B, 20+ yrs 02/14/2019,09/20/19 19,08/15/2018,01/29,05/25/2016 Pneumococcal Conjugate Vacc, 13 Valent (Prevnar) 03/02/2015 Pneumococcal Polysaccharide PPV23 (Pneumovax) 05/25/2016 Seasonal Influenza Virus Vac cine, Unspecified Formulation 02/08/2022,02/03/2021,01/20/2020 Seasonal Influenza, PF, 6 M & above, IM , (FluLaval or Fluzone) 02/14/2019 Seasonal Influenza, Quadriva lent, No Preserve, IM 02/13/2018 Seasonal Influenza, Split, I IV3, With Preserve, Inj 02/28/2017,02/23/2016,02/25/2015,01/28,02/12/2012 TDAP (age 10 and older)(Boostrix) 07/29/2013 Zoster Vaccine Recombinant (Shingrix) 11/28/2019 ,05/29/2019 documented as of this encounter Social History Tobacco Use Types Packs/Day Years Used Date Smoking Tobacco: Never Smokeless Tobacco: Never Alcohol Use Standard Drinks/Week Comments Yes 0 (1 standard drink = 0.6 oz pur e alcohol) social PHQ-2 Answer Date Recorded PHQ Adult Total Score 20 06/09/2021 Hunger Vital Sign Answer Date Recorded Within the past 12 months, y ou worried that your food would run out before you got the money to buy more. Never true 06/09/19 22 Within the past 12 months, t he food you bought just didn't last and you didn't have money to get more. Never true 06/09/2021 Sex and Gender Information Value Date Recorded Sex Assigned at Female 08/15/2018 8:39 AM EDT Gender Identity Female 08/15/2018 8:39 AM EDT Sexual Orientation Straight 08/15/2018 8: 39 AM EDT Job Start Date Occupation Industry Not on file Not on file Not on file documented as of this encounter Miscellaneous Notes * Telephone Encounter - Pradeep Ya RPh - 04/17/2023 3:14 PM ESTSigned Prescriptions: Disp Refills Ozempic (1 MG/DOSE) 4 MG/3ML Subcutaneous *9 mL 1 Sig: Inject 1 mg under the skin once a week.Authorizing Provider: RICK MORGAN User: PRADEEP YA documented in this encounter Plan of Treatment Upcoming Encounters Date Type Department Care Team (Late st Contact Info) Description 05/07/2023 8:00 AM EST Office Visit Pharmacy, [address] [place] [address] Pharmacist2, [facility] [address] [place] [address] Scheduled Procedures Name Priority Associated Diagnoses Date/Ti me COLONOSCOPY FLEXIBLE PROXIMA L DIAGNOSTIC Recall History of colonic polyps Health Maintenance Due Date Last Done Comments Depression, Most Recent Score >= 10 (will fire each visit until score < 10) 06/10/2021 06/09/2021 Diabetic Eye Exam 07/21/2022 07/21/2021, , 05/08/2019, Additional history exists COVID-19 Vaccine ( season) 2022 02/09/2021, 05/29/2020, 05/08/2020 Influenza Vaccine (FLU shot) (#1) 2022 02/08/2022, 02/03/2021, 01/20/2020, Additional history exists Albumin/Creatinine Ratio 06/13/2023 023, 02/07/2019, 02/21/2018, Additional history exists B-12 06/13/2023 06/13/2022, 05/01, 01/03/2020, Additional history exists Diabetic Foot Exam 06/13/2023 06/13/2022, 0 12/01/2020, 11/28/2019, Additional history exists GFR 06/13/2023 06/13/2022, 05/01, 11/05/2020, Additional history exists Mammogram 06/13/2023 06/13/2022, 05/31, 03/03/2019, Additional history exists DTaP,Tdap,and Td Vaccines (2 - Td or Tdap) 07/30/2023 07/29/2013 HbA1c 09/10/2023 03/12/2023, 08/0 10/2022, 06/13/2022, Additional history exists Lipid Panel 06/13/2027 06/13/2022, 05/01, 11/05/2020, Additional history exists COLONOSCOPY-EVERY 5 YRS AGES 18-100 11/09/2027 11/08/2022, 11/08/2022, 05/04/2017, Additional history exists Pneumococcal Vaccine: Pediatrics (0 to 5 Years) and At-Risk Patients (6 to 64 Years) (3 - PPSV23 or PCV20) 10/31/2028 05/25/2016, 03/02/2015 Hepatitis B Completed 02/14/2019, 08/29, 08/15/2018, Additional history exists Zoster Vaccines Completed 11/28/2019, 05/29/2019 GARDASIL-HPV IMMUNIZATION SERIES Aged Out No longer eligible based on patient's age to complete this topic MENINGOCOCCAL (MENACTRA/MENVEO) Aged Out No longer eligible based on patient's age to complete this topic documented as of this encounter Medical Devices Not on filedocumented as of this encounter Visit Diagnoses Diagnosis Type 2 diabetes mellitus with hemoglobin A1c goal of less than 7.0% (HCC) documented in this encounter Advance Directives Latest Code Status on File Code Status Date Activated Date Inactivated Comments Full Code 02/17/2020 7:23 AM 02/17/2020 1:49 PM Thi s order reflects the patients wishes and were consensually agreed upon. Question Answer Comments Discussion of Advance Directives occurred with: Not Discussed Care Teams Tools Developer Relationship Specialty Start Date End Date Rick Morgan MD [address] [place], [place] [address] PCP - General Internal Medicine 01/05/16 documented as of this encounter
--- OUTSIDE RECORDS SUMMARY | 2023-05-05 09:48 | External Medical Summary | Summary of Care ---
Author Name Unknown Organization [facility] Address [address] [facility] [place] [address] Phone [phone] Care Team Providers Care Garnisher Name Role Phone Rick Morgan MD Primary Care Provider + Reason for Visit * Reason Onset Date Comments Medication Refill 02/20/2023 Encounter Details Date Type Department Care Team (Late st Contact Info) Description 02/20/2023 Refill General Internal Medicine [facility] [address] [facility] [place] 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 0 08/22/2017 Active Aspirin 81 MG Oral Tablet Delayed ReleaseIndication s:Type 2 diabetes mellitus with hemoglobin A1c goal of less than 7.0% ([facility]) Take 1 Tablet by mouth in the [...] Additional Information Patient not taking.Reported on 11/07/2022 Ozempic (1 MG/DOSE) 4 MG/3ML Subcutaneous Solution Pen-injector (Semaglutide (1 MG/DOSE))Indicati ons:Type 2 diabetes mellitus with hemoglobin A1c goal of less than 7.0% (HCC) Inject 1 mg under the skin once a week. 3 mL 11 04/10/2022 Active BD Pen Needle Brooke U/F 32G X 4 MM (Insulin Pen Needle)Indication s:Type 2 diabetes mellitus with hemoglobin A1c goal of less than 7.0% (HCC) Use four times daily. 400 Each 3 06/08/2022 Active Dexcom G6 SensorIndications :Type 2 diabetes mellitus with hemoglobin A1c goal of less than 7.0% (HCC) Use as directed. Change every 10 days. 10 Each 07/20/2022 Active Dexcom G6 TransmitterIndica tions:Type 2 [...] THE MORNING 90 Tablet 3 11/19/2022 Active Insulin Glargine-yfgn 100 UNIT/ML Subcutaneous Solution (Semglee (yfgn))Indication s:Type 2 diabetes mellitus with hemoglobin A1c goal of less than 7.0% (HCC) Inject 30 Units under the skin at bedtime. 30 mL 3 12/04/2022 Active Insulin Lispro (1 Unit Dial) 100 UNIT/ML Subcutaneous Solution Pen-injector (HumaLOG KwikPen)Indicatio ns:Type 2 diabetes mellitus with hemoglobin A1c goal of less than 7.0% (HCC) Inject 8 units with meals three times daily PLUS correct factor of 1:50. Max daily dose of 40 units per day. 15 mL 3 12/04/2022 Active Nitrofurantoin Monohyd Macro 100 MG Oral Capsule (Macrobid) Take 1 Capsule by mouth in the morning and 1 Capsule before bedtime. With food until gone. 14 Capsule 0 01/18/2023 Active Rosuvastatin Calcium 5 MG Oral Tablet (Crestor)Indicati ons:Hyperlipidemi a with target LDL less than 100 Take 1 Tablet by mouth in the morning. 30 Tablet 5 02/21/2023 Active Rosuvastatin Calcium 5 MG Oral Tablet (Crestor)Indicati ons:Hyperlipidemi a with target LDL less than 100 Take 1 Tablet by mouth in the morning. 30 Tablet 5 06/08/2022 3 Discontinue d(Refill) documented as of this encounter (statuses as of 02/21/2023) Active Problems Problem Noted Date Diagnosed Date [...] as of this encounter (statuses as of 02/21/2023) Resolved Problems Problem Noted Date Diagnosed Date Resolved Date Depression 05/07/2015 07/01/2015 Obesity, Class II, BMI 35-39 .9, isolated (see actual BMI) 03/02/2015 01/10/2019 Iron deficiency anemia 08/14/200607/29 Thrombocytopenia 07/29/2013 documented as of this encounter (statuses as of 02/21/2023) Immunizations Name Administration Dates Next Due COVID-19 mRNA, LNP-s, No Pre serve, 2-Dose Series ([employer]) 02/09/2021,05/29/2020,05/08/2020 05/29/2020 Hepatitis B, 20+ yrs 02/14/2019,09/20/19 19,08/15/2018,01/29,05/25/2016 Pneumococcal Conjugate Vacc, 13 Valent (Prevnar) 03/02/2015 Pneumococcal Polysaccharide PPV23 (Pneumovax) 05/25/2016 SEASONAL INFLUENZA, PF, 6 M & Above, IM , (FLULAVAL or FLUZONE) 02/14/2019 Seasonal Influenza Virus Vac cine, Unspecified Formulation 02/08/2022,02/03/2021,01/20/2020 Seasonal Influenza, Quadriva lent, No Preserve, IM [...] = 0.6 oz pur e alcohol) social Sex and Gender Information Value Date Recorded Sex Assigned at Female 08/15/2018 8:39 AM EDT Gender Identity Female 08/15/2018 8:39 AM EDT Sexual Orientation Straight 08/15/2018 8: 39 AM EDT Job Start Date Occupation Industry Not on file Not on file Not on file documented as of this encounter Miscellaneous Notes * Telephone Encounter - Saurabh Muñoz RPh - 02/21/2023 7:56 AM EDTSigned Prescriptions: Disp Refills Rosuvastatin Calcium 5 MG Oral Tablet (Cre*30 Tab*5 Sig: Take 1 Tablet by mouth in the morning.Authorizing Provider: RICK MORGAN User: EZEQUIEL MUÑOZ documented in this encounter Plan of Treatment Upcoming Encounters Date Type Department Care Team (Late st Contact Info) Description 03/05/2023 6:10 PM [facility] Pharmacy Pharmacy, [facility] [address] [place] [address] Pharmacist2, [facility] [address] [place] [address] Scheduled Procedures Name Priority Associated Diagnoses Date/Ti me COLONOSCOPY FLEXIBLE PROXIMA L DIAGNOSTIC Recall History of colonic polyps Health Maintenance Due Date Last Done Comments Depression, Most Recent Score >= 10 (will fire each visit until score < 10) 06/10/2021 06/09/2021 DIABETES-EYE EXAM 07/21/2022 07/21/2021, , 05/08/2019, Additional history exists COVID-19 Vaccine ( - 2022-24 season) 2022 02/09/2021, 05/29/2020, 05/08/2020 Influenza Vaccine (FLU shot) (#1) 2022 02/08/2022, 02/03/2021, 01/20/2020, Additional history exists HbA1c 06/06/2023 12/04/2022, 05/31, 11/25/2021, Additional history exists Albumin/Creatinine Ratio 06/13/2023 023, 02/07/2019, 02/21/2018, Additional history exists B-12 06/13/2023 06/13/2022, 05/01, 01/03/2020, Additional history exists Diabetic Foot Exam 06/13/2023 06/13/2022, 0 12/01/2020, 11/28/2019, Additional history exists GFR 06/13/2023 06/13/2022, 05/01, 11/05/2020, Additional history exists Mammogram 06/13/2023 06/13/2022, 05/31, 03/03/2019, Additional history exists DTaP,Tdap,and Td Vaccines (2 - Td or Tdap) 07/30/2023 07/29/2013 Lipid Panel 06/13/2027 06/13/2022, 05/01, 11/05/2020, Additional [...] as of this encounter Visit Diagnoses Diagnosis Hyperlipidemia with target LDL less than 100 Other and unspecified hyperlipidemia documented in this encounter Advance Directives Latest Code Status on File Code Status Date Activated Date Inactivated Comments Full Code 02/17/2020 7:23 AM 02/17/2020 1:49 PM Thi s order reflects the patients wishes and were consensually agreed upon. Question Answer Comments Discussion of Advance Directives occurred with: Not Discussed Care Teams Garnisher Relationship Specialty Start Date End Date Rick Morgan MD [address] [facility] [place] [address] PCP - General Internal Medicine 01/05/16 documented as of this encounter
--- OUTSIDE RECORDS SUMMARY | 2023-05-05 09:48 | External Medical Summary ---
Author Name Unknown Address Unknown Organization K09:[facility] [address] [place] [id number] Laboratory Report Ordering Provider Test Date Status MINNIE BAXTER 03/12/2023 07:28:07 Final Observation Date Value Abnormality Reference (Units ) Status HbA1C 03/12/2023 07:28:07 10.6 Above high normal 4. 0-5.6 (%) Final Performing Location [facility] [address] [place] [id number]
--- OUTSIDE RECORDS SUMMARY | 2023-05-05 09:48 | External Medical Summary | Summary of Care ---
Author Name Unknown Organization [facility] Address [address] [place] [address] Phone [phone] Care Team Providers Care In Home Nanny Name Role Phone Rick Morgan MD Primary Care Provider + Reason for Visit * Reason Onset Date Comments Medication Refill 03/13/2023 Encounter Details Date Type Department Care Team (Late st Contact Info) Description 03/13/2023 Refill Pharmacy, [facility] [address] [place] [address] Rick Morgan MD [address] [place] [address] Type 2 diabetes mellitus with hemoglobin A1c goal of less than 7.0% ([facility]) Allergies Active Allergy Reactions Criticality Noted Date Comments Aspirin 02/22/2015 Codeine Anaphylaxis High 05/22/2012 Empagliflozin High 03/16/2020 Morphine And Related 11/16/1999 Extreme nausea and SOB 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 30 mL 3 03/13/2023 Active Insulin Glargine-yfgn 100 UNIT/ML Subcutaneous Solution (Semglee (yfgn))Indication s:Type 2 diabetes mellitus with hemoglobin A1c goal of less than 7.0% (HCC) Inject 30 Units under the skin at bedtime. 30 mL 3 12/04/2022 3 Discontinue d(Refill) documented as of this encounter (statuses as of 03/13/2023) Active Problems Problem Noted Date Diagnosed Date [...] as of this encounter (statuses as of 03/13/2023) Resolved Problems Problem Noted Date Diagnosed Date Resolved Date Depression 05/07/2015 07/01/2015 Obesity, Class II, BMI 35-39 .9, isolated (see actual BMI) 03/02/2015 01/10/2019 Iron deficiency anemia 08/14/200607/29 Thrombocytopenia 07/29/2013 documented as of this encounter (statuses as of 03/13/2023) Immunizations Name Administration Dates Next Due COVID-19 mRNA, LNP-s, No Pre serve, 2-Dose Series ([employer]) 02/09/2021,05/29/2020,05/08/2020 05/29/2020 Hepatitis B, 20+ yrs 02/14/2019,09/20/19 [...] encounter Miscellaneous Notes * Telephone Encounter - Juventino Calixto RPh - 03/13/2023 8:05 AM EST Signed Prescriptions: Disp Refills Insulin Glargine-yfgn 100 UNIT/ML Subcutan*30 mL 3 Sig: Inject 30 Units under the skin at bedtime.Authorizing Provider: RICK MORGAN User: JUVENTINO CALIXTO documented in this encounter Plan of Treatment Upcoming Encounters Date Type Department Care Team (Late st Contact Info) Description 05/07/2023 8:00 AM EST Office Visit Pharmacy, [facility] [address] [place] [address] Pharmacist2, [facility] [address] [facility] [place] [address] Scheduled Procedures Name Priority Associated Diagnoses Date/Ti [...] Directives occurred with: Not Discussed Care Teams In Home Nanny Relationship Specialty Start Date End Date Rick Morgan MD [address] [place] [address] PCP - General Internal Medicine 01/05/16 documented as of this encounter
--- OUTSIDE RECORDS SUMMARY | 2023-05-05 09:48 | External Medical Summary | Summary of Care ---
Author Name Unknown Organization [facility] Address [address] [place] [address] Phone [phone] Care Team Providers Care Waste Collector Name Role Phone Yoselin Morgan MD Primary Care Provider + Reason for Visit * Reason Onset Date Comments Appointment 01/22/2023 Encounter Details Date Type Department Care Team Description 01/22/2023 Telephone Pharmacy Call Center [address] [address] Pharmacist1, [facility] [address] [facility] [place] [id number] Appointment Allergies Active Allergy Reactions Severity Noted Date Comments Aspirin 02/22/2015 Codeine Anaphylaxis High 05/22/2012 Empagliflozin High 03/16/2020 Morphine And Related 11/16/1999 Extreme nausea and SOB 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 0 08/22/2017 Active Aspirin 81 MG Oral Tablet Delayed ReleaseIndications :Type 2 diabetes mellitus with hemoglobin A1c goal of less than 7.0% (HCC) Take 1 Tablet by mouth in the morning. 100 Tab 5 02/14/2019 Active Estradiol 0.1 MG/GM Vaginal Cream (Estrace)Indicatio ns:Postmenopausal atrophic vaginitis Administer into the vagina 1 g in the morning. 42.5 g 3 06/09/2021 Active OneTouch Verio In Vitro Strip (Glucose Blood)Indications: Type 2 diabetes mellitus with hemoglobin A1c goal of less than 7.0% (HCC) USE TO CHECK BLOOD SUGARS FOUR TIMES A DAY DIRECTED BEFORE MEALS AND AT BEDTIME (AND WITH SYMPTOMS) E11.9 200 Strip 3 02/15/2022 Active Albuterol Sulfate HFA 108 (90 Base) MCG/ACT Inhalation Aerosol SolutionIndication s:Post viral asthma Inhale 2 Puffs by mouth every 6 hours as needed for Shortness of Breath or Wheezing. 18 g 3 04/10/2022 Active Additional Information Patient not taking.Reported on 11/07/2022 Ozempic (1 MG/DOSE) 4 MG/3ML Subcutaneous Solution Pen-injector (Semaglutide (1 MG/DOSE))Indicatio ns:Type 2 diabetes mellitus with hemoglobin A1c goal of less than 7.0% (HCC) Inject 1 mg under the skin once a week. 3 mL 11 04/10/2022 Active Rosuvastatin Calcium 5 MG Oral Tablet (Crestor)Indicatio ns:Hyperlipidemia with target LDL less than 100 Take 1 Tablet by mouth in the morning. 30 Tablet 5 06/08/2022 Active BD Pen Needle Brooke U/F 32G X 4 MM (Insulin Pen Needle)Indications :Type 2 diabetes mellitus with hemoglobin A1c goal of less than 7.0% (HCC) Use four times daily. 400 Each 3 06/08/2022 Active Dexcom G6 SensorIndications: Type 2 diabetes mellitus with hemoglobin A1c goal of less than 7.0% (HCC) Use as directed. Change every 10 days. 10 Each 3 07/20/2022 Active Dexcom G6 TransmitterIndicat ions:Type 2 diabetes mellitus with hemoglobin A1c goal of less than 7.0% (HCC) Use as directed. Replace every 3 months 1 Each 07/20/2022 Active metFORMIN HCl ER 500 MG Oral Tablet Extended Release 24 Hour (Glucophage XR)Indications:Typ e 2 diabetes mellitus with hemoglobin A1c goal of less than 7.0% (HCC) Take 2 Tablets by mouth in the morning and 2 Tablets before bedtime. 360 Tablet 3 07/26/2022 Active Citalopram Hydrobromide 40 MG Oral Tablet (CeleXA) TAKE 1 TABLET BY MOUTH IN THE MORNING 90 Tablet 2 11/19/2022 Active Lisinopril 2.5 MG Oral Tablet (Prinivil)Indicati ons:Type 2 diabetes mellitus with hemoglobin A1c goal of less than 7.0% (HCC) TAKE 1 TABLET BY MOUTH IN THE MORNING 90 Tablet 3 11/19/2022 Active Insulin Glargine-yfgn 100 UNIT/ML Subcutaneous Solution (Semglee (yfgn))Indications :Type 2 diabetes mellitus with hemoglobin A1c goal of less than 7.0% (HCC) Inject 30 Units under the skin at bedtime. 30 mL 3 12/04/2022 Active Insulin Lispro (1 Unit Dial) 100 UNIT/ML Subcutaneous Solution Pen-injector (HumaLOG KwikPen)Indication s:Type 2 diabetes mellitus with hemoglobin A1c [...] until gone. 14 Capsule 0 01/18/2023 Active documented as of this encounter (statuses as of 01/22/2023) Active Problems Problem Noted Date Melanoma of lower leg, right 06/09/2021 Type 2 diabetes mellitus with hyperglyce lora 03/16/2020 Hx of melanoma of skin 02/05/2020 Overview: Malignant Melanoma (R popliteal fossae 01/2020, Breslow depth 0.9mm) H/O dysplastic nevus 01/28/2020 Overview: Severely atypical nevus (R popliteal fossae 06/2013) Generalized anxiety disorder 05/29/2019 Hyperlipidemia with target LDL less than 100 05/29/2019 Mild single current episode of major dep ressive disorder 08/17/2017 Type 2 diabetes mellitus with hemoglobin A1c goal of less than 7.0% 12/21/2015 Adjustment disorder with depressed mood 07/01/2015 GERD (gastroesophageal reflux disease) 0 05/07/2015 History of iron deficiency 07/29/2013 History of thrombocytopenia 07/29/2013 Dermatophytosis of nail 08/14/2006 No advance directive on file 01/30/2005 Overview: No, Advance Directive brochure offered , patient declined. Migraine with aura 10/06/2003 EXT ASTHMA W-O STAT ASTH documented as of this encounter (statuses as of 01/22/2023) Resolved Problems Problem Noted Date Resolved Date Depression 05/07/2015 07/01/2015 Obesity, Class II, BMI 35-39.9, isolated (see ac tual BMI) 03/02/2015 01/10/2019 Iron deficiency anemia 08/14/2006 4 Thrombocytopenia 07/29/2013 documented as of this encounter (statuses as of 01/22/2023) Immunizations Name Administration Dates Next Due COVID-19 mRNA, LNP-s, No Pre serve, 2-Dose Series ([employer]) 02/09/2021,05/29/2020,05/08/2020 05/29/2020 Hepatitis B, 20+ yrs 02/14/2019,09/20/19 19,08/15/2018,01/29,05/25/2016 Pneumococcal Conjugate Vacc, 13 Valent (Prevnar) 03/02/2015 Pneumococcal Polysaccharide PPV23 (Pneumovax) 05/25/2016 Seasonal Influenza Virus Vac cine, Unspecified Formulation 02/08/2022,02/03/2021,01/20/2020 Seasonal Influenza, PF, 6 mo ns & Above, IM , (Flulaval) 02/14/2019 Seasonal Influenza, Quadriva lent, No Preserve, [...] = 0.6 oz pur e alcohol) social Food Insecurity Answer Date Recorded Within the past 12 months, y ou worried that your food would run out before you got money to buy more. Never true 06/09/2021 Within the past 12 months, t he food you bought just didn't last and you didn't have money to get more. Never true 06/09/2021 Sex Assigned at Date Recorded Female 08/15/2018 8:39 AM E DT Job Start Date Occupation Industry Not on file Not on file Not on file documented as of this encounter Miscellaneous Notes * Telephone Encounter - LINETTE Helms - 01/22/2023 3:10 PM EDT Patient Phone Numbers Left message on patients answering machine to schedule [facility] appointment for DM management. [facility] message sent --no Clinic will follow up again in 2 week(s). [Attempt # 1] Thank you, Natalie Gilbert Overnight Caregiver [facility]acy Services ([facility]PS) (Formerly Telepharmacy) 01/22/2023, 3:10 PM documented in this encounter Plan of Treatment Upcoming Encounters Date Type Specialty Care Team Description 02/05/2023 Pharmacy Pharmacy Pharmacist2, [facility] [address] [place] [address] Health Maintenance Due Date Last Done Comments COVID-19 Vaccine (4 - Pfizer series) 04/06/2021 02/09/2021, 05/29/2020, 05/08/2020 Depression, Most Recent Score >= 10 (will fire each visit until score < 10) 06/10/2021 06/09/2021 DIABETES-EYE EXAM 07/21/2022 07/21/2021, , 05/08/2019, Additional history exists Influenza Vaccine (FLU shot) (#1) 2022 02/08/2022, 02/03/2021, 01/20/2020, Additional history exists HbA1c 06/06/2023 12/04/2022, 05/31, 11/25/2021, Additional history exists Albumin/Creatinine Ratio 06/13/202306/13/2 023, 02/07/2019, 02/21/2018, Additional history exists B-12 [...] Not on filedocumented as of this encounter Advance Directives Latest Code Status on File Code Status Date Activated Date Inactivated Comments Full Code 02/17/2020 7:23 AM 02/17/2020 1:49 PM Thi s order reflects the patients wishes and were consensually agreed upon. Question Answer Comments Discussion of Advance Directives occurred with: Not Discussed Care Teams Waste Collector Relationship Specialty Start Date End Date Yoselin Morgan MD [address] [facility] [place] [place] [address] PCP - General Internal Medicine 01/05/16 documented as of this encounter
--- OUTSIDE RECORDS SUMMARY | 2023-05-05 09:48 | External Medical Summary | Summary of Care ---
Author Name Unknown Organization [facility] Address [address] [facility] [place] [address] Phone [phone] Care Team Providers Care Betting Clerk Name Role Phone Yoselin Morgan MD Primary Care Provider + Reason for Visit * Reason Comments Dosage Adjustment In Person (Anticoag Cl inic) Diabetes Management Encounter Details Date Type Department Care Team (Late st Contact Info) Description 03/12/2023 8:00 AM EST Office Visit Pharmacy, 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 30 mL 3 12/04/2022 Active Nitrofurantoin Monohyd Macro [...] day. 30 mL 3 03/12/2023 Active Insulin Lispro (1 Unit Dial) 100 UNIT/ML Subcutaneous Solution Pen-injector (HumaLOG KwikPen)Indicatio ns:Type 2 diabetes mellitus with hemoglobin A1c goal of less than 7.0% (HCC) Inject 8 units with meals three times daily PLUS correct factor of 1:50. Max daily dose of 40 units per day. 15 mL 3 12/04/2022 Discontinue d(Refill) documented as of this encounter (statuses as of 03/12/2023) Active Problems Problem Noted Date Diagnosed Date [...] as of this encounter (statuses as of 03/12/2023) Resolved Problems Problem Noted Date Diagnosed Date Resolved Date Depression 05/07/2015 07/01/2015 Obesity, Class II, BMI 35-39 .9, isolated (see actual BMI) 03/02/2015 01/10/2019 Iron deficiency anemia 08/14/200607/29 Thrombocytopenia 07/29/2013 documented as of this encounter (statuses as of 03/12/2023) Immunizations Name Administration Dates Next Due COVID-19 mRNA, LNP-s, No Pre serve, 2-Dose Series ([employer]) 02/09/2021,05/29/2020,05/08/2020 05/29/2020 Hepatitis B, 20+ yrs 02/14/2019,09/20/19 19,08/15/2018,1008/2017,05/25/2016 Pneumococcal Conjugate Vacc, 13 Valent (Prevnar) 03/02/2015 [...] on file documented as of this encounter Progress Notes * Juventino Calixto, [facility] - 03/12/2023 7:58 AM EST Images from the original note were not included. Medication Therapy Disease Management [facility] - Diabetes Management Progress Note Anahi Rowley, identified by name and date of , is a 57 year old female being seen for diabetes management/education. Patient presents for return diabetic visit. DIABETES: Current diabetic medications: Metformin ER 500 mg 2 tabs twice daily (as tolerated, patient starting from 1 tab BID, has had nausea with metformin in the past ) Ozempic 1 weekly (Sundays) INC: Semglee 30 units bedtime (drop by 1 units if BG < 70) ADJ: Humalog 8 units TID with meals plus 1:50 correction factor Medication Injection Site: Abdomen Lifestyle: Diet: unchanged Glucose Review/SMBG: Readings obtained from patient device Hypoglycemia: Does your blood sugar go below 70 mg/dL? Yes, 1-2 times/week Hyperglycemia symptoms present: none Recent Labs Units 12/04/22 1012 06/13/22 0823 11/25/21 1019 HEMOGLOBIN A1C - [facility] % -- 9.6* -- HEMOGLOBIN A1C POCT - [facility] % 9.9* -- 9.1* Recent Labs Units 06/13/22 0823 05/24/21 1517 ESTIMATED GLOMERULAR FILTRATION RATE - [facility] mL/min 80 >90 CREATININE - [facility] mg/dL 0.8 0.7 HYPERTENSION: Patient on ACEi/ARB: yes BP Readings from Last 3 Encounters: 01/05/23 122/92 11/08/22 112/96 06/13/22 110/78 Blood pressure at goal: yes HYPERLIPIDEMIA: Patient is taking moderate or high intensity statin: yes HEALTH MAINTENANCE REVIEW: Health Maintenance Due Topic Date Due Depression, Most Recent Score >= 10 (will fire each visit until score < 10) 06/10/2021 Diabetic Eye Exam 07/21/2022 Influenza Vaccine (FLU shot) (1) 12/29/2022 COVID-19 Vaccine ( - season) 2022 ASSESSMENT & PLAN: ICD-10-CM 1. Type 2 diabetes mellitus with hemoglobin A1c goal of less than 7.0% (HCC) E11.9 BG Readings - Blood sugars Uncontrolled but slightly improved per dexcom data. Averaging 259 over the past 2 weeks.POCT A1c 10.6%. Medications - Reviewed current regimen, patient is adherent to regimen. Patient agreable to adjust humalog at lunch to target the largest spike that consistently occurs in her blood sugar. Diet, Exercise, Lifestyle - No significant lifestyle changes since last visit. Patient is agreeable to SMBG 4 time(s) daily. Patient aware to contact clinic if any hypoglycemia before next visit. MEDICATION CHANGES: yes, see below; preferred pharmacy: [facility] Medications: Metformin ER 500 mg 2 tabs twice daily (as tolerated, patient starting from 1 tab BID, has had nausea with metformin in the past ) Ozempic 1 weekly (Sundays) Semglee 30 units bedtime (drop by 1 units if BG < 70) INC: Humalog Inject 8 units with Breakfast and dinner, 12 units with lunch, PLUS correct factor of 1:45 over 120. Max daily dose of 55 units per day. 03/12/23 Fast Acting Insulin: Novolog To find insulin dose: 1) Find the ROW in which pre-meal blood sugar is in (on LEFT of chart) 2) Find COLUMN which represents which meal you are eating 3) Go across row from step 1 and go down column from step 2 4) Where the row and column cross - that is the dose of fast acting insulin Blood Sugar levels Am meal Lunch PM Meal No food 75 to 119 8 12 8 0 120 to 164 8 12 8 0 165 to 209 9 13 9 1 210 to 254 10 14 10 2 255 to 299 11 15 11 3 300 to 344 12 16 12 4 345 to 389 13 17 13 5 390 to 434 14 18 14 6 Parameters fixed 8 12 8 frandy 45 over 120 HEALTH MAINTENANCE INTERVENTIONS: Labs: Ordered & Scheduled: POCT A1c done today. Immunizations: Up to Date Foot Exam: Up to Date Eye Exam: Up to Date Annual Wellness Visit: N/A FOLLOW UP: Return to clinic in 8 weeks 05/07/2023 Juventino Calixto [facility] Clinical Pharmacist - Plate Stacker Medication Therapy Management Clinic 03/12/2023, 7:58 AM Electronically signed by Juventino Calixto [facility] at 03/12/2023 8:27 AM EST documented in this encounter Plan of Treatment Upcoming Encounters Date Type Department Care Team (Late st Contact Info) Description 05/07/2023 8:00 AM EST Office Visit Pharmacy, [facility] [place] [address] [facility] [place] [address] Pharmacist2, [facility] [address] [facility] [place] [address] Scheduled Orders Name Type Priority Associated Diagnoses Order Schedule HEMOGLOBIN A1C, POINT OF CARE Point of Care Testing - Unsolicited Results Routine Type 2 diabetes mellitus with hemoglobin A1c goal of less than 7.0% ([facility]) Ordered: 03/12/2023 Scheduled Procedures Name Priority Associated Diagnoses Date/Ti me COLONOSCOPY FLEXIBLE PROXIMA L DIAGNOSTIC Recall History of colonic polyps Health Maintenance Due Date Last Done Comments Depression, Most Recent Score >= 10 (will fire each visit until score < 10) 06/10/2021 06/09/2021 Diabetic Eye Exam 07/21/2022 07/21/2021, , 05/08/2019, Additional history exists COVID-19 Vaccine (4 - 2022-24 season) 2022 02/09/2021, 05/29/2020, 05/08/2020 [...] hemoglobin A1c goal of less than 7.0% ([facility])- Primary documented in this encounter Advance Directives Latest Code Status on File Code Status Date Activated Date Inactivated Comments Full Code 02/17/2020 7:23 AM 02/17/2020 1:49 PM Thi s order reflects the patients wishes and were consensually agreed upon. Question Answer Comments Discussion of Advance Directives occurred with: Not Discussed Care Teams Betting Clerk Relationship Specialty Start Date End Date Yoselin Morgan MD [address] [facility] [place] [address] PCP - General Internal Medicine 01/05/16 documented as of this encounter
--- OUTSIDE RECORDS SUMMARY | 2023-05-05 09:48 | External Medical Summary | Summary of Care ---
Author Name Unknown Organization [facility] Address [address] [place] [address] Phone [phone] Care Team Providers Care Hospice Liaison Name Role Phone Yoselin Morgan MD Primary Care Provider + Reason for Visit * Reason Comments Appointment Encounter Details Date Type Department Care Team Description 02/05/2023 Pharmacy Pharmacy, [facility] [address] [facility] [place] [address] Pharmacist2, [facility] [address] [facility] [place] [address] Type 2 diabetes mellitus with hemoglobin A1c goal of less than 7.0% ([facility])* Allergies Active Allergy Reactions Severity Noted Date Comments Aspirin 02/22/2015 Codeine Anaphylaxis High 05/22/2012 Empagliflozin High 03/16/2020 Morphine And Related 11/16/1999 Extreme nausea and SOB 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 documented as of this encounter (statuses as of 02/05/2023) Medications Medication Sig Dispensed Refills Start Date End Date Status ONETOUCH LANCETS MISCIndications:Ty pe 2 diabetes mellitus with hemoglobin [...] as of this encounter (statuses as of 02/05/2023) Active Problems Problem Noted Date Melanoma of [...] as of this encounter (statuses as of 02/05/2023) Resolved Problems Problem Noted Date Resolved Date Depression 05/07/2015 07/01/2015 Obesity, Class II, BMI 35-39.9, isolated (see ac tual BMI) 03/02/2015 01/10/2019 Iron deficiency anemia 08/14/2006 4 Thrombocytopenia 07/29/2013 documented as of this encounter (statuses as of 02/05/2023) Immunizations Name Administration Dates Next Due COVID-19 mRNA, LNP-s, No Pre serve, 2-Dose Series ([employer]) 02/09/2021,05/29/2020,05/08/2020 05/29/2020 Hepatitis B, 20+ yrs 02/14/2019,09/20/19 [...] as of this encounter Progress Notes * LINETTE Wong - 02/05/2023 9:51 AM EDT Patient Phone Numbers Sent patient [employer] message to schedule [facility] appointment for diabetes management. [facility] message sent --yes Clinic will follow up again in 4 week(s). [Attempt # 2] Thank you, Ladonna Jackson Airline Managerial Supervisor [facility] ([facility]) 02/05/2023,9:51 AM documented in this encounter Plan of Treatment Upcoming Encounters Date Type Specialty Care Team Description 03/05/2023 Pharmacy Pharmacy Pharmacist2, [facility] [address] [facility] [place] [address] Scheduled Procedures Name Priority Associated Diagnoses Date/Ti [...] hemoglobin A1c goal of less than 7.0% (HCC)- Primary documented in this encounter Advance Directives Latest Code Status on File Code Status Date Activated Date Inactivated Comments Full Code 02/17/2020 7:23 AM 02/17/2020 1:49 PM Thi s order reflects the patients wishes and were consensually agreed upon. Question Answer Comments Discussion of Advance Directives occurred with: Not Discussed Care Teams Hospice Liaison Relationship Specialty Start Date End Date Yoselin Morgan MD [address] [place] [address] PCP - General Internal Medicine 01/05/16 documented as of this encounter
--- OUTSIDE RECORDS SUMMARY | 2023-05-05 09:48 | External Medical Summary | Summary of Care ---
Author Name Unknown Organization [facility] Address [address] [facility] [address] Phone [phone] Care Team Providers Care Welding Specialist Name Role Phone Yoselin Morgan MD Primary Care Provider + Reason for Visit * Reason Comments Appointment Encounter Details Date Type Department Care Team (Late st Contact Info) Description 03/05/2023 6:10 PM [facility] Pharmacy Pharmacy, [facility] [address] [facility] [place] [address] Pharmacist2, [facility] [address] [facility] [place] [address] Type 2 diabetes mellitus with hemoglobin A1c goal of less than 7.0% ([facility])* Allergies Active Allergy Reactions Criticality Noted Date Comments Aspirin 02/22/2015 Codeine Anaphylaxis High 05/22/2012 Empagliflozin High 03/16/2020 Morphine And Related 11/16/1999 Extreme nausea and SOB 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 10 Each 07/20/2022 Active Dexcom G6 TransmitterIndicat ions:Type 2 [...] the morning. 30 Tablet 5 02/21/2023 Active documented as of this encounter (statuses as of 03/05/2023) Active Problems Problem Noted Date Diagnosed Date [...] as of this encounter (statuses as of 03/05/2023) Resolved Problems Problem Noted Date Diagnosed Date Resolved Date Depression 05/07/2015 07/01/2015 Obesity, Class II, BMI 35-39 .9, isolated (see actual BMI) 03/02/2015 01/10/2019 Iron deficiency anemia 08/14/200607/29 Thrombocytopenia 07/29/2013 documented as of this encounter (statuses as of 03/05/2023) Immunizations Name Administration Dates Next Due COVID-19 mRNA, LNP-s, No Pre serve, 2-Dose Series ([employer]) 02/09/2021,05/29/2020,05/08/2020 05/29/2020 Hepatitis B, 20+ yrs 02/14/2019,09/20/19 [...] as of this encounter Progress Notes * Natalie Gilbert PHARM Tech - 03/05/2023 8:54 AM EST Patient Phone Numbers Sent [facility] to pt[facility]. [facility] message sent -- yes Clinic will follow up again in 4 week(s). [Attempt # 3] Thank you, Natalie Gilbert Manager Ed [facility] ([facility]) (Formerly Telepharmacy) 03/05/2023, 8:55 AM documented in this encounter Plan of Treatment Upcoming Encounters Date Type Department Care Team (Late st Contact Info) Description 04/02/2023 6:10 PM EST Pharmacy Pharmacy, [facility] [address] [place] [address] Pharmacist2, [facility] [address] [place] [address] Scheduled Procedures Name Priority Associated Diagnoses Date/Ti [...] hemoglobin A1c goal of less than 7.0% ([facility])- Primary documented in this encounter Advance Directives Latest Code Status on File Code Status Date Activated Date Inactivated Comments Full Code 02/17/2020 7:23 AM 02/17/2020 1:49 PM Thi s order reflects the patients wishes and were consensually agreed upon. Question Answer Comments Discussion of Advance Directives occurred with: Not Discussed Care Teams Welding Specialist Relationship Specialty Start Date End Date Yoselin Morgan MD [address] [facility] [place] [address] PCP - General Internal Medicine 01/05/16 documented as of this encounter
--- OUTSIDE RECORDS SUMMARY | 2023-05-05 09:49 | External Medical Summary | Summary of Care ---
Author Name Unknown Organization [facility] Address [address] [place] [address] Phone [phone] Care Team Providers Care Director Surgical Name Role Phone Rick Morgan MD Primary Care Provider + Reason for Visit * Reason Comments eRx-Medication Refill Encounter Details Date Type Department Care Team Description 11/17/2022 Refill General Internal Medicine [facility] [address] [facility] [place] [id number] Rick Morgan MD [address] [facility] [place] [id number] Type 2 diabetes mellitus with hemoglobin A1c goal of less than 7.0% ([facility]) Allergies Active Allergy Reactions Severity Noted Date Comments Aspirin 02/22/2015 Codeine Anaphylaxis High 05/22/2012 Empagliflozin High 03/16/2020 Morphine And Related 11/16/1999 Extreme nausea and SOB 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 0 8 Active Aspirin 81 MG Oral Tablet Delayed ReleaseIndication s:Type 2 diabetes mellitus with hemoglobin A1c goal of less than 7.0% (HCC) Take 1 Tablet by mouth in the morning. 100 Tab 5 9 Active Estradiol 0.1 MG/GM Vaginal Cream (Estrace)Indicati ons:Postmenopausa l atrophic vaginitis Administer into the vagina 1 g in the morning. 42.5 g 3 2 Active Insulin Lispro (1 Unit Dial) 100 UNIT/ML Subcutaneous Solution Pen-injector (HumaLOG KwikPen)Indicatio ns:Type 2 diabetes mellitus with hemoglobin A1c goal of less than 7.0% (HCC) Inject under the skin 5 Units three times a day with meals . 15 mL 3 2 Active OneTouch Verio In Vitro Strip (Glucose Blood)Indications :Type 2 diabetes mellitus with hemoglobin A1c goal of less than 7.0% (HCC) USE TO CHECK BLOOD SUGARS FOUR TIMES A DAY DIRECTED BEFORE MEALS AND AT BEDTIME (AND WITH SYMPTOMS) E11.9 200 Strip 3 2 Active Albuterol Sulfate HFA 108 (90 Base) MCG/ACT Inhalation Aerosol SolutionIndicatio ns:Post viral asthma Inhale 2 Puffs by mouth every 6 hours as needed for Shortness of Breath or Wheezing. 18 g 3 2 Active Additional Information Patient not taking.Reported on 11/07/2022 Ozempic (1 MG/DOSE) 4 MG/3ML Subcutaneous Solution Pen-injector (Semaglutide (1 MG/DOSE))Indicati ons:Type 2 diabetes mellitus with hemoglobin A1c goal of less than 7.0% (HCC) Inject 1 mg under the skin once a week. 3 mL 11 2 Active Rosuvastatin Calcium 5 MG Oral Tablet (Crestor)Indicati ons:Hyperlipidemi a with target LDL less than 100 Take 1 Tablet by mouth in the morning. 30 Tablet 5 3 Active BD Pen Needle Brooke U/F 32G X 4 MM (Insulin Pen Needle)Indication s:Type 2 diabetes mellitus with hemoglobin A1c goal of less than 7.0% (HCC) Use four times daily. 400 Each 3 3 Active Dexcom G6 SensorIndications :Type 2 diabetes mellitus with hemoglobin A1c goal of less than 7.0% (HCC) Use as directed. Change every 10 days. 10 Each 3 3 Active Dexcom G6 TransmitterIndica tions:Type 2 diabetes mellitus with hemoglobin A1c goal of less than 7.0% (HCC) Use as directed. Replace every 3 months 1 Each 3 3 Active metFORMIN HCl ER 500 MG Oral Tablet Extended Release 24 Hour (Glucophage XR)Indications:Ty pe 2 diabetes mellitus with hemoglobin A1c goal of less than 7.0% (HCC) Take 2 Tablets by mouth in the morning and 2 Tablets before bedtime. 360 Tablet 3 3 Active Insulin Glargine-yfgn 100 UNIT/ML Subcutaneous Solution (Semglee (yfgn)) Inject 19 Units under the skin at bedtime. 15 mL 3 3 Active Citalopram Hydrobromide 40 MG Oral Tablet (CeleXA) TAKE 1 TABLET BY MOUTH IN THE MORNING 90 Tablet 2 3 Active Lisinopril 2.5 MG Oral Tablet (Prinivil)Indicat ions:Type 2 diabetes mellitus with hemoglobin A1c goal of less than 7.0% (HCC) TAKE 1 TABLET BY MOUTH IN THE MORNING 90 Tablet 3 3 Active Lisinopril 2.5 MG Oral Tablet (Prinivil)Indicat ions:Type 2 diabetes mellitus with hemoglobin A1c goal of less than 7.0% (HCC) Take 1 Tablet by mouth in the morning. 90 Tablet 1 3 11/20/19 23 Discontinued Citalopram Hydrobromide 40 MG Oral Tablet (CeleXA) Take 1 Tablet by mouth in the morning. 30 Tablet 5 3 11/20/19 23 Discontinued documented as of this encounter (statuses as of 11/19/2022) Active Problems Problem Noted Date Melanoma of [...] as of this encounter (statuses as of 11/19/2022) Resolved Problems Problem Noted Date Resolved Date Depression 05/07/2015 07/01/2015 Obesity, Class II, BMI 35-39.9, isolated (see ac tual BMI) 03/02/2015 01/10/2019 Iron deficiency anemia 08/14/2006 4 Thrombocytopenia 07/29/2013 documented as of this encounter (statuses as of 11/19/2022) Immunizations Name Administration Dates Next Due COVID-19 mRNA, LNP-s, No Pre serve, 2-Dose Series (Chumen Wenwen) 02/09/2021,05/29/2020,05/08/2020 05/29/2020 Hepatitis B, 20+ yrs 02/14/2019,09/20/19 19,08/15/2018,01/29,05/25/2016 Pneumococcal Conjugate Vacc, 13 Valent (Prevnar) 03/02/2015 Pneumococcal Polysaccharide PPV23 (Pneumovax) 05/25/2016 Seasonal Influenza Virus Vac cine, Unspecified Formulation 02/08/2022,02/03/2021,01/20/2020 Seasonal Influenza, Quadriva lent, No Preserve, 6 Mons & Above, IM 02/14/2019 Seasonal Influenza, Quadriva lent, No Preserve, [...] encounter Miscellaneous Notes * Telephone Encounter - Maico Cristina RPh - 11/19/2022 10:50 PM EDTSigned Prescriptions: Disp Refills Citalopram Hydrobromide 40 MG Oral Tablet *90 Tab*2 Sig: TAKE 1TABLET BY MOUTH IN THE MORNINGAuthorizing Provider: RICK MORGAN User: MAICO CRISTINA Lisinopril 2.5 MG Oral Tablet (Prinivil) 90 Tab*3 Sig: TAKE 1 TABLET BY MOUTH IN THE MORNINGAuthorizing Provider: RICK MORGAN User: MAICO CRISTINA documented in this encounter Plan of Treatment Upcoming Encounters Date Type Specialty Care Team Description 12/04/2022 Office Visit Pharmacy Pharmacist2, [facility] [address] [place] [id number] 12/12/2022 Office Visit Internal Medicine Rick Morgan MD [address] [place] [id number] Health Maintenance Due Date Last Done Comments COVID-19 Vaccine (4 - Pfizer series) 04/06/2021 02/09/2021, 05/29/2020, 05/08/2020 Depression, Most Recent Score >= 10 (will fire each visit until score < 10) 06/10/2021 06/09/2021 DIABETES-EYE EXAM 07/21/2022 07/21/2021, , 05/08/2019, Additional history exists HbA1c 12/11/2022 06/13/2022, 10/29, 05/24/2021, Additional history exists Influenza Vaccine (FLU shot) (#1) 2022 02/08/2022, 02/03/2021, 01/20/2020, Additional history exists Albumin/Creatinine Ratio 06/13/2023 023, 02/07/2019, 02/21/2018, Additional history exists B-12 06/13/2023 06/13/2022, 05/01, 01/03/2020, Additional history exists DIABETES-FOOT EXAM 06/13/2023 06/13/2022, 0 12/01/2020, 11/28/2019, Additional history [...] Directives occurred with: Not Discussed Care Teams Director Surgical Relationship Specialty Start Date End Date Rick Morgan MD [address] [facility] [place] [address] PCP - General Internal Medicine 01/05/16 documented as of this encounter
--- OUTSIDE RECORDS SUMMARY | 2023-05-05 09:49 | External Medical Summary | Summary of Care ---
Author Name Unknown Organization [facility] Address [address] [place] [address] Phone [phone] Care Team Providers Care Draw In Hand Name Role Phone Yoselin Morgan MD Primary Care Provider + Reason for Visit * Reason Comments Urinary Tract Infection Symptoms Encounter Details Date Type Department Care Team Description 01/05/2023 [facility] [place] [address] [place] [address] Jordan Benson PA-C [address] 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 15 mL 3 12/04/2022 Active Sulfamethoxazole-T rimethoprim 800-160 MG Oral Tablet (Bactrim DS)Indications:Acu te cystitis with hematuria Take 1 Tablet by mouth in the morning and 1 Tablet before bedtime. Do all this for 5 days. Until gone. 9 Tablet 0 01/05/2023 3 Active documented as of this encounter (statuses as of 01/05/2023) Active Problems Problem Noted Date Melanoma of lower leg, right 06/09/2021 Type 2 diabetes mellitus with hyperglyce loar 03/16/2020 Hx of melanoma of skin 02/05/2020 [...] as of this encounter (statuses as of 01/05/2023) Resolved Problems Problem Noted Date Resolved Date Depression 05/07/2015 07/01/2015 Obesity, Class II, BMI 35-39.9, isolated (see ac tual BMI) 03/02/2015 01/10/2019 Iron deficiency anemia 08/14/2006 4 Thrombocytopenia 07/29/2013 documented as of this encounter (statuses as of 01/05/2023) Immunizations Name Administration Dates Next Due COVID-19 mRNA, LNP-s, No Pre serve, 2-Dose Series ([employer]) 02/09/2021,05/29/2020,05/08/2020 05/29/2020 Hepatitis B, 20+ yrs 02/14/2019,09/20/19 [...] on file documented as of this encounter Last Filed Vital Signs Vital Sign Reading Time Taken Comments Blood Pressure 122/92 01/05/2023 6:45 PM EDT Pulse 114 01/05/2023 6:45 PM EDT Temperature 36.6 C (97.8 F) 01/05/2023 6:45 PM ED T Respiratory Rate - - Oxygen Saturation 100% 01/05/2023 6:45 PM EDT Inhaled Oxygen Concentration - - Weight 83.1 kg (183 lb 3.2 oz) 01/05/2023 6:45 P M EDT Height 165.1 cm (5' 5") 01/05/2023 6:45 PM EDT Body Mass Index 30.49 01/05/2023 6:45 PM EDT documented in this encounter Progress Notes * Jordan Benson PA-C - 01/05/2023 7:27 PM EDT [facility] PROGRESS NOTE Chief Complaint Patient presents with Urinary Tract Infection Symptoms Nursing Notes: RT Jesse (R) 01/05/23 1847 Signed Patient presents with extreme urgency, pain while urinating, blood in urine that started this afternoon. Anahi Rowley is a 57 year old female who presents with urinary tract symptoms. Patient was accompanied by Self. HPI:Patient presents with extreme urgency, pain while urinating, blood in urine that started this afternoon. Severity of Symptoms: Moderate Modifying Factors (what was done since onset of Symptoms): none Timing (How often does it occur): sudden Quality (Feels Like): pressure Other associated Signs and Symptoms: pressure, urgency, blood in urine ROS: Constitutional symptoms: no fever and no recent illness Pulmonary ROS: No cough, sputum, or hemoptysis, No wheezing, No shortness of breath, and No recent change in breathing Cardiovascular ROS: No chest pain and No syncope Gastrointestional ROS: No abdominal pain and No nausea, vomiting, diarrhea, or constipation Urinary symptoms: BURNING, URGENCY, PRESSURE, and HEMATURIA Skin/Integumentary ROS: No edema, No rash, and No itching Symptom duration of 1 day(s) Reports fluid intake is adequate HISTORY: Past Medical History: Diagnosis Date Asthma Has not needed inhaler for over 1 year Cervical intraepithelial neoplasia grade [address] Durand Depression 05/07/2015 GERD (gastroesophageal reflux disease) 05/07/2015 Iron deficiency anemia 08/04 Thrombocytopenia (HCC) Type 2 diabetes mellitus with hemoglobin A1c goal of less than 7.0% (HCC) 12/21/2015 Past Surgical History: Procedure Laterality Date ARTHROPLASTY KNEE TOTAL Left 08/2005 left knee 09/02, severe arthritis, Dr Pearce ARTHROPLASTY KNEE TOTAL Right 11/19/15 [facility] at [facility] BX LYMPH NODE-SUPERFIC Right 02/17/2020 BIOPSY LYMPH NODE OPEN SUPERFICIAL performed by Paul Maldonado MD at [facility] DELIVERY Delivery Only X 2 COLONOSCOPY, DIAGNOSTIC (RECTUM) 08/08/2016 polyp, diverticulosis, repeat 6-12 mo/COLONOSCOPY FLEXIBLE PROXIMAL DIAGNOSTIC performed by Ladonna Mercado DO at END[facility]COPY [facility] COLONOSCOPY, DIAGNOSTIC (RECTUM) 05/04/2017 hyperplastic polyps, diverticulosis, repeat 5 yrs/COLONOSCOPY FLEXIBLE PROXIMAL DIAGNOSTIC performed by Ladonna Mcdonald DO at ENDOSCOPY [facility] COLONOSCOPY, DIAGNOSTIC (RECTUM) 11/08/2022 COLONOSCOPY FLEXIBLE PROXIMAL DIAGNOSTIC performed by Ladonna Mcdonald DO at ENDOSCOPY [facility] DENTAL SURGERY PROCEDURE NEC wisdom teeth KNEE ARTHROSCOPY, DIAGNOSTIC Knee Arthroscopy X 2 right and left LIGATE/CUT OVIDUCT(S) MAMMOGRAM - BILATERAL 02/14/07 Birad code 2 PARTIAL HYSTERECTOMY 2011 ovaries left in REMOVAL OF APPENDIX Appendectomy RMV MALG LSN TRK/ARM/LG 1.1-2C Right 02/17/2020 EXCISION MALIGNANT TRUNK ARM LEG 1.1 TO 2CM performed by Paul Maldonado MD at [facility] Social History Socioeconomic History Marital status: Spouse name: Alessandro Number of children: 2 Years of education: 14 Highest education level: Not on file Occupational History Employer: [employer] Comment: [employer] 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 Occupation: [employer] Tobacco Use Smoking status: Never Smokeless tobacco: Never Substance and Sexual Activity Alcohol use: Yes Comment: social Drug use: No Sexual activity: Not on file Other Topics Concern Not on file Social History Narrative [employer]: [employer] Social Determinants of Health Financial Resource Strain: Not on file Food Insecurity: Not on file Transportation Needs: Not on file Physical Activity: Not on file Stress: Not on file Social Connections: Not on file Intimate Partner Violence: Not on file Housing Stability: Not on file Current Outpatient Medications Medication Sig Dispense Refill Sulfamethoxazole-Trimethoprim 800-160 MG Oral Tablet (Bactrim DS) Take 1 Tablet by mouth in the morning and 1 Tablet before bedtime. Do all this for 5 days. Until gone. 9 Tablet 0 ONETOUCH LANCETS MISC Use as directed test one four times a day 1 Box Dosing Unit 0 CYANOCOBALAMIN (VITAMIN B-12) 500 MCG Sublingual Tablet Take 2 Tablets by mouth in the morning. Aspirin 81 MG Oral Tablet Delayed Release Take 1 Tablet by mouth in the morning. (Patient not taking: Reported on 11/07/2022) 100 Tab 5 Estradiol 0.1 MG/GM Vaginal Cream (Estrace) Administer into the vagina 1 g in the morning. 42.5 g 3 OneTouch Verio In Vitro Strip (Glucose Blood) USE TO CHECK BLOOD SUGARS FOUR TIMES A DAY DIRECTED BEFORE MEALS AND AT BEDTIME (AND WITH SYMPTOMS) E11.9 200 Strip 3 Albuterol Sulfate HFA 108 (90 Base) MCG/ACT Inhalation Aerosol Solution Inhale 2 Puffs by mouth every 6 hours as needed for Shortness of Breath or Wheezing. (Patient not taking: Reported on 11/07/2022) 18 g 3 Ozempic (1 MG/DOSE) 4 MG/3ML Subcutaneous Solution Pen-injector (Semaglutide (1 MG/DOSE)) Inject 1 mg under the skin once a week. 3 mL 11 Rosuvastatin Calcium 5 MG Oral Tablet (Crestor) Take 1 Tablet by mouth in the morning. 30 Tablet 5 BD Pen Needle Brooke U/F 32G X 4 MM (Insulin Pen Needle) Use four times daily. 400 Each 3 Dexcom G6 Sensor Use as directed. Change every 10 days. 10 Each 3 Dexcom G6 Transmitter Use as directed. Replace every 3 months 1 Each 3 metFORMIN HCl ER 500 MG Oral Tablet Extended Release 24 Hour (Glucophage XR) Take 2 Tablets by mouth in the morning and 2 Tablets before bedtime. 360 Tablet 3 Citalopram Hydrobromide 40 MG Oral Tablet (CeleXA) TAKE 1 TABLET BY MOUTH IN THE MORNING 90 Tablet 2 Lisinopril 2.5 MG Oral Tablet (Prinivil) TAKE 1 TABLET BY MOUTH IN THE MORNING 90 Tablet 3 Insulin Glargine-yfgn 100 UNIT/ML Subcutaneous Solution (Semglee (yfgn)) Inject 30 Units under the skin at bedtime. 30 mL 3 Insulin Lispro (1 Unit Dial) 100 UNIT/ML Subcutaneous Solution Pen-injector (HumaLOG KwikPen) Inject 8 units with meals three times daily PLUS correct factor of 1:50. Max daily dose of 40 units per day. 15 mL 3 No current facility-administered medications for this visit. Review of patient's allergies indicates: Allergen Reactions Codeine Anaphylaxis Jardiance [Empagliflozin] Aspirin Morphine And Related Extreme nausea and SOB Salicylates storage pole disease Family History Problem Relation Age of Onset Gastro-intestinal disorder Father ulcer/chloecystectomy Allergies Father Arthritis Father knee replacement Blood Disorder Father thrombocytopenia Cancer Grandfather (Paternal) prostate Heart Disorder Grandfather (Paternal) ME @ 41 Heart Disorder Grandfather (Maternal) CHF, @ 66 Hypertension Grandfather (Maternal) Heart Disorder Grandmother (Maternal) afib Mental Disorder Grandmother (Maternal) dementia Gastro-intestinal disorder Grandmother (Maternal) Diverticulitis, hiatal hernia, Stroke Grandmother (Maternal) from stroke age 81 Hypertension Grandmother (Maternal) Asthma Daughter Blood Disorder Brother thrombocytopenia No Past Hx Son OBJECTIVE: BP 122/92 | Pulse 114 | Temp 36.6 C (97.8 F) (Tympanic) | Ht 1.651 m (5' 5") | Wt 83.1 kg (183 lb 3.2 oz) | LMP 11/20/2009 | SpO2 100% | BMI 30.49 kg/m | BSA 1.95 m Wt Readings from Last 1 Encounters: 01/05/23 83.1 kg (183 lb 3.2 oz) General appearance: awake, alert, no apparent distress Abdominal Exam: back: no CVA tenderness and abd: +suprapubic tenderness to palpation, no R/R/G, +BS Skin/Integumentary: no rash, erythema, ecchymosis Results for orders placed or performed in visit on 01/05/23 URINALYSIS, POINT OF CARE (ENTER/EDIT) Result Value Ref Range Color, Urine Yellow Yellow or Light Yellow Clarity, Urine Slightly Cloudy (A) Clear Glucose, Urine 100 (A) Negative mg/dL Bilirubin, Urine Negative Negative Ketone, Urine Trace (A) Negative mg/dL Specific Stearns, Urine 1.030 1.003 - 1.030 Blood, Urine Large (A) Negative pH, Urine 5.5 5.0 - 7.5 units Protein, Urine 100 (A) Negative mg/dL Urobilinogen, Urine 1.0 0.2 - 1.0 mg/dL Nitrite, Urine Negative Negative Esterase, Urine Moderate (A) Negative There are no Patient Instructions on file for this visit. Assessment: UTI symptoms (Primary) - URINALYSIS, POINT OF CARE (ENTER/EDIT) - CULTURE, URINE, QUANTITATIVE Acute cystitis with hematuria - Sulfamethoxazole-Trimethoprim 800-160 MG Oral Tablet (Bactrim DS); Take 1 Tablet by mouth in the morning and 1 Tablet before bedtime. Do all this for 5 days. Until gone. Take entire course of abx. Increase fluids (at least eight 8-oz glasses/day), but avoid caffeine and alcohol which can irritate the bladder. Discussed ways to prevent UTI, such as making sure to wipefrom front to back when going to the bathroom, urinating before and after intercourse, taking showers instead of baths, wearing cotton underwear. If symptoms worsen or do not improve, told to contactthe clinic.Will contact with results of culture when available. Patient goals for plan of care were discussed Follow up with PCP or seek emergency medical attention as needed if symptoms worsen, evolve, or fail to improve. Patient demonstrates understanding of the visit, course of treatment, and instructions. Thoroughly discussed alarming symptoms that would indicate need for emergent care/treatment. Medication instructions and possible side effects were reviewed with patient. All questions were answered and patient agrees to plan of care. ' Jordan Benson PA-C [facility] [place] [address] [facility] [place] [address] documented in this encounter Nursing Notes * RT Jesse (R) - 01/05/2023 6:44 PM EDT Patient presents with extreme urgency, pain while urinating, blood in urine that started this afternoon. documented in this encounter Plan of Treatment Upcoming Encounters Date Type Specialty Care Team Description 01/31/2023 Office Visit Pharmacy Pharmacist2, [facility] [address] [place] [address] Pending Results Name Type Priority Associated Diagnoses Date /Time CULTURE, URINE, QUANTITATIVE Lab Routine UTI symptoms 01/05/2023 6:47 PM EDT Health Maintenance Due Date Last Done Comments [...] Not on filedocumented as of this encounter Procedures Procedure Name Priority Date/Time Associated Diagnosis Comments URINALYSIS, POINT OF CARE (ENTER/EDIT) Routine 01/05/2023 6:46 PM EDT UTI symptoms documented in this encounter Results * (ABNORMAL) URINALYSIS, POINT OF CARE (ENTER/EDIT) (01/05/2023 6:46 PM EDT) Color, Urine Yellow Yellow or Light Yellow Clarity, Urine Slightly Cloudy(A) Clear Glucose, Urine 100(A) Negative mg/dL Bilirubin, Urine Negative Negative Ketone, Urine Trace(A) Negative mg/dL Specific Stearns, Urine 1.030 1.003 - 1.030 Blood, Urine Large(A) Negative pH, Urine 5.5 5.0 - 7.5 units Protein, Urine 100(A) Negative mg/dL Urobilinogen, Urine 1.0 0.2 - 1.0 mg/dL Nitrite, Urine Negative Negative Esterase, Urine Moderate(A) Negative Urine 01/05/2023 6:46 PM EDT Jordan Benson PA-C LAB POINT OF CA RE TEST ENTER/EDIT ORDERABLES documented in this encounter Visit Diagnoses Diagnosis UTI symptoms- Primary Other symptoms involving urinary system Acute cystitis with hematuria Acute cystitis documented in this encounter Advance Directives Latest Code Status on File Code Status Date Activated Date Inactivated Comments Full Code 02/17/2020 7:23 AM 02/17/2020 1:49 PM Thi s order reflects the patients wishes and were consensually agreed upon. Question Answer Comments Discussion of Advance Directives occurred with: Not Discussed Care Teams Draw In Hand Relationship Specialty Start Date End Date Yoselin Morgan MD [address] [facility] [place], [place] [address] PCP - General Internal Medicine 01/05/16 documented as of this encounter
--- OUTSIDE RECORDS SUMMARY | 2023-05-05 09:49 | External Medical Summary | Summary of Care ---
Author Name Unknown Organization [facility] Address [address] [place] [address] Phone [phone] Care Team Providers Care Airport Maintenance Laborer Name Role Phone Yoselin Morgan MD Primary Care Provider + Encounter Details Date Type Department Care Team Description 01/08/2023 Telephone Convenient Care, Isis [place] [address] [place] [phone] Alanna Johnson PA-C [address] [place] [address] Allergies Active Allergy Reactions Severity Noted Date Comments Aspirin 02/22/2015 Codeine Anaphylaxis High 05/22/2012 Empagliflozin High 03/16/2020 Morphine And Related 11/16/1999 Extreme nausea and SOB 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 14 Capsule 0 01/18/2023 Active Sulfamethoxazole- Trimethoprim 800-160 MG Oral Tablet (Bactrim DS)Indications:Ac mac cystitis with hematuria Take 1 Tablet by mouth in the morning and 1 Tablet before bedtime. Do all this for 5 days. Until gone. 9 Tablet 0 01/05/2023 3 Nitrofurantoin Monohyd Macro 100 MG Oral Capsule (Macrobid) Take 1 Capsule by mouth in the morning and 1 Capsule before bedtime. Do all this for 7 days. With food until gone. 14 Capsule 0 01/08/2023 3 Discontinue d(Refill) documented as of this encounter (statuses as of 01/18/2023) Active Problems Problem Noted Date Melanoma of [...] as of this encounter (statuses as of 01/18/2023) Resolved Problems Problem Noted Date Resolved Date Depression 05/07/2015 07/01/2015 Obesity, Class II, BMI 35-39.9, isolated (see ac tual BMI) 03/02/2015 01/10/2019 Iron deficiency anemia 08/14/2006 4 Thrombocytopenia 07/29/2013 documented as of this encounter (statuses as of 01/18/2023) Immunizations Name Administration Dates Next Due COVID-19 mRNA, LNP-s, No Pre serve, 2-Dose Series ([employer]) 02/09/2021,05/29/2020,05/08/2020 05/29/2020 Hepatitis B, 20+ yrs 02/14/2019,09/20/19 [...] as of this encounter Miscellaneous Notes * Addendum Note - Alanna Johnson PA-C - 01/18/2023 10:31 AM EDTAddended by: ALANNA JOHNSON on: 01/18/2023 10:31 AM Modules accepted: Orders * Telephone Encounter - Alanna Johnson PA-C - 01/08/2023 1:30 PM EDT Urine culture shows resistance to bactrim which was prescribed. Changing Rx to Macrobid. documented in this encounter Plan of Treatment Health Maintenance Due Date Last Done Comments [...] Directives occurred with: Not Discussed Care Teams Airport Maintenance Laborer Relationship Specialty Start Date End Date Yoselin Morgan MD [address] [facility] [place] [address] PCP - General Internal Medicine 01/05/16 documented as of this encounter
--- OUTSIDE RECORDS SUMMARY | 2023-05-05 09:49 | External Medical Summary ---
Author Name Unknown Address Unknown Organization [id number]:[facility] [place] - [address] [facility] [address] Laboratory Report Ordering Provider Test Date Status XIANG LOVING 01/05/2023 18:47:02 Final <10,000 colonies/ml mixed no rmal rut Observation Date Value Abnormality Reference (Units ) Status Bacteria identified in Specimen by Culture 01/05/2023 18:47:02 [id number]^ESCHE RICHIA COLI Abnormal Final >100,000 colonies/mL Escheri sally coli Performing Location [facility] [place] - [address] [facility] [id number] Ordering Provider Test Date Status XIANG LOVING 01/05/2023 18:47:02 Final Observation Date Value Abnormality Reference (Units ) Status Ampicillin 01/05/2023 18:47:02 >=32 Resistant Final Ampicillin + Sulbactam 01/05/2023 18:47:02 >=32 Resistant Final Cefazolin 01/05/2023 18:47:02 <=4 Susceptible Final Cefepime susceptibility 01/05/2023 18:47:02 <=1 Susceptible Final Ceftriaxone suceptibility 01/05/2023 18:47:02 <=1 Susceptible Final Ciprofloxacin 01/05/2023 18:47:02 1 Resistant Final Due to serious side effects, the FDA has advised against using Ciprofloxacin to treat uncomplicated UTIs and respiratory tract infections unless there are no alternative treatment options. Gentamicin susceptibility 01/05/2023 18:47:02 <=1 Susc eptible Final Levofloxacin susceptibility 01/05/2023 18:47:02 1 In termediate Final Due to serious side effects, the FDA has advised against using Levofloxacin to treat uncomplicated UTIs and respiratory tract infections unless there are no alternative treatment options. Nitrofurantoin susceptibility 01/05/2023 18:47:02 <=16 Susceptible Final Piperacillin + Tazobactamsusceptibility 01/05/2023 18:47:02 <=4 Susceptible Final TMP-SMZ susceptibility 01/05/2023 18:47:02 >=320 Resista nt Final Test: Culture, Urine, Quanti tative
Specimen Source: Urine, Clean Catch
Specimen Type: Urine
Specimen Date: 01/05/2023 6:47 PM
Result Date: 01/08/2023 1:12 PM
Result Status: Final result
Abnormal: Yes
Resulting Lab: [facility] [place] [facility]
[address]
[place] [address]

CULTURE

>100,000 colonies/mL Escherichia coli (Abnormal)

<10,000 colonies/ml mixed normal rut

SUSCEPTIBILITY

Escherichia coli
METHOD MICROBROTH DILUTIONS

AMPICILLIN >=32 Resistant
AMPICILLIN/SULBACTAM >=32 Resistant
CEFAZOLIN <=4 Susceptible
CEFEPIME <=1 Susceptible
CEFTRIAXONE <=1 Susceptible
CIPROFLOXACIN 1 Resistant [1]
GENTAMICIN <=1 Susceptible
LEVOFLOXACIN 1 Intermediate [2]
NITROFURANTOIN <=16 Susceptible
PIPERACILLIN TAZOBACTAM <=4 Susceptible
TRIMETH/SULFAMETHOXAZOLE >=320 Resistant

[1] Due to serious side effects, the FDA has advised against using
Ciprofloxacin to treat uncomplicated UTIs and respiratory tract infections
unless there are no alternative treatment options.

[2] Due to serious side effects, the FDA has advised against using
Levofloxacin to treat uncomplicated UTIs and respiratory tract infections
unless there are no alternative treatment options.

null Performing Location [facility] [place] - [address] [facility] [id number]
--- OUTSIDE RECORDS SUMMARY | 2023-05-05 09:49 | External Medical Summary ---
Author Name Unknown Address Unknown Organization : Laboratory Report Ordering Provider Test Date Status REMA GUZMAN 11/08/2022 08:15:39 Final Observation Date Value Abnormality Reference (Units ) Status Glucose Point of Care 11/08/2022 08:15:39 143 Above high normal 70-120 (mg/dL) Final Performing Location
--- OUTSIDE RECORDS SUMMARY | 2023-05-05 09:49 | External Medical Summary | Summary of Care ---
Author Name Unknown Organization [facility] Address [address] [place] [address] Phone [phone] Care Team Providers Care Carburetor Specialist Name Role Phone Yoselin Morgan MD Primary Care Provider + Encounter Details Date Type Department Care Team Description 01/08/2023 Telephone Convenient Care, Isis [place] [address] [place] [address] Edinson Perla PA-C [address] [place] [address] Allergies Active Allergy Reactions Severity Noted Date Comments Aspirin 02/22/2015 Codeine Anaphylaxis High 05/22/2012 Empagliflozin High 03/16/2020 Morphine And Related 11/16/1999 Extreme nausea and SOB 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 9 Tablet 0 01/05/2023 3 Active Nitrofurantoin Monohyd Macro 100 MG Oral Capsule (Macrobid) Take 1 Capsule by mouth in the morning and 1 Capsule before bedtime. Do all this for 7 days. With food until gone. 14 Capsule 0 01/08/2023 3 Active documented as of this encounter (statuses as of 01/08/2023) Active Problems Problem Noted Date Melanoma of [...] as of this encounter (statuses as of 01/08/2023) Resolved Problems Problem Noted Date Resolved Date Depression 05/07/2015 07/01/2015 Obesity, Class II, BMI 35-39.9, isolated (see ac tual BMI) 03/02/2015 01/10/2019 Iron deficiency anemia 08/14/2006 4 Thrombocytopenia 07/29/2013 documented as of this encounter (statuses as of 01/08/2023) Immunizations Name Administration Dates Next Due COVID-19 mRNA, LNP-s, No Pre serve, 2-Dose Series ([employer]) 02/09/2021,05/29/2020,05/08/2020 05/29/2020 Hepatitis B, 20+ yrs 02/14/2019,09/20/19 [...] encounter Miscellaneous Notes * Telephone Encounter - Edinson Perla PA-C - 01/08/2023 1:30 PM EDT Urine culture shows resistance to bactrim which was prescribed. Changing Rx to Macrobid. documented in this encounter Plan of Treatment Upcoming Encounters Date Type Specialty Care Team Description 01/31/2023 Office Visit Pharmacy Pharmacist2, [facility] [address] [place] [address] Health Maintenance Due Date Last Done Comments [...] Directives occurred with: Not Discussed Care Teams Carburetor Specialist Relationship Specialty Start Date End Date Yoselin Morgan MD [address] [place] [address] PCP - General Internal Medicine 01/05/16 documented as of this encounter
--- OUTSIDE RECORDS SUMMARY | 2023-05-05 09:49 | External Medical Summary | Summary of Care ---
Author Name Unknown Organization [facility] Address [address] [address] Phone [phone] Care Team Providers Care Store Receiving Clerk Name Role Phone Yoselin Morgan MD Primary Care Provider + Reason for Visit * Auth/Cert Specialty Diagnoses / Procedures Referred By Jesi grimaldo Referred To Contact Diagnoses History of colon polyps History of colon polyps [Z86.010] Procedures COLONOSCOPY, DIAGNOSTIC (RECTUM) COLONOSCOPY FLEXIBLE PROXIMAL DIAGNOSTIC Referral ID Status Reason Start Date Expiration Date Visits Re quested Visits Authorized [id number] Encounter Details Date Type Department Care Team Description 11/08/2022 Hospital Encounter ENDO [facility], Endoscopy Room [facility] [address] [place] [phone] Ladonna Mcdonald T, DO [address] [place] [address] Colonoscopy Allergies Active Allergy Reactions Severity Noted Date Comments Aspirin 02/22/2015 Codeine Anaphylaxis High 05/22/2012 Empagliflozin High 03/16/2020 Morphine And Related 11/16/1999 Extreme nausea and SOB 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 42.5 g 3 06/09/2021 Active Insulin Lispro (1 Unit Dial) 100 UNIT/ML Subcutaneous Solution Pen-injector (HumaLOG KwikPen)Indication s:Type 2 diabetes mellitus with hemoglobin A1c goal of less than 7.0% (HCC) Inject under the skin 5 Units three times a day with meals . 15 mL 3 11/25/2021 Active OneTouch Verio In Vitro Strip (Glucose [...] the morning. 30 Tablet 5 06/08/2022 Active Lisinopril 2.5 MG Oral Tablet (Prinivil)Indicati ons:Type 2 diabetes mellitus with hemoglobin A1c goal of less than 7.0% (HCC) Take 1 Tablet by mouth in the morning. 90 Tablet 1 06/08/2022 Active BD Pen Needle Brooke U/F 32G X 4 MM (Insulin Pen Needle)Indications :Type 2 diabetes mellitus with hemoglobin A1c goal of less than 7.0% (HCC) Use four times daily. 400 Each 3 06/08/2022 Active Citalopram Hydrobromide 40 MG Oral Tablet (CeleXA) Take 1 Tablet by mouth in the morning. 30 Tablet 5 06/13/2022 Active Dexcom G6 SensorIndications: Type 2 diabetes [...] before bedtime. 360 Tablet 3 07/26/2022 Active Insulin Glargine-yfgn 100 UNIT/ML Subcutaneous Solution (Semglee (yfgn)) Inject 19 Units under the skin at bedtime. 15 mL 3 07/30/2022 Active documented as of this encounter (statuses as of 11/08/2022) Active Problems Problem Noted Date Melanoma of [...] as of this encounter (statuses as of 11/08/2022) Resolved Problems Problem Noted Date Resolved Date Depression 05/07/2015 07/01/2015 Obesity, Class II, BMI 35-39.9, isolated (see ac tual BMI) 03/02/2015 01/10/2019 Iron deficiency anemia 08/14/2006 4 Thrombocytopenia 07/29/2013 documented as of this encounter (statuses as of 11/08/2022) Immunizations Name Administration Dates Next Due COVID-19 mRNA, LNP-s, No Pre serve, 2-Dose Series (maufait) 02/09/2021,05/29/2020,05/08/2020 05/29/2020 Hepatitis B, 20+ yrs 02/14/2019,09/20/19 [...] Sign Reading Time Taken Comments Blood Pressure 112/96 11/08/2022 9:14 AM EDT Pulse 81 11/08/2022 9:14 AM EDT Temperature 36.1 C (97 F) 11/08/2022 9:01 AM EDT Respiratory Rate 20 11/08/2022 9:14 AM EDT Oxygen Saturation 98% 11/08/2022 9:14 AM EDT Inhaled Oxygen Concentration - - Weight 80.7 kg (178 lb) 11/07/2022 9:35 AM EDT Height 165.1 cm (5' 5") 11/07/2022 9:35 AM EDT Body Mass Index 29.62 11/07/2022 9:35 AM EDT documented in this encounter H&P Notes * Ladonna Mcdonald, DO - 11/08/2022 8:22 AM EDT Procedure(s): Colonoscopy; with Indication(s) of colon polyp surveillance Endoscopy Pre-Procedure Assessment: Prior to the procedure, the patient was identified. The patient's history, medications and allergies were reviewed as per the Anesthesia Assessment. The patient is competent. The risks and benefits of the proposed procedure and the planned sedation were discussed with the patient. All questions were answered and informed consent for the procedure was obtained. BP 152/96 | Pulse 76 | Temp (Src) 98.8 (Tympanic) | Resp 18 | Ht 5' 0" (1.524m) | Wt 165 lbs (74.844kg) | BMI 32.22 kg/m | BSA 1.78 m | SaO2 99% | LMP 05/11/2004 Prior to Admission medications Medication Sig Last Dose Discont. Insulin Glargine-yfgn 100 UNIT/ML Subcutaneous Solution (Semglee (yfgn)) Inject 19 Units under the skin at bedtime. 11/07/2022 metFORMIN HCl ER 500 MG Oral Tablet Extended Release 24 Hour (Glucophage XR) Take 2 Tablets by mouth in the morning and 2 Tablets before bedtime. 11/07/2022 Dexcom G6 Sensor Use as directed. Change every 10 days. 11/08/2022 Dexcom G6 Transmitter Use as directed. Replace every 3 months 11/08/2022 Citalopram Hydrobromide 40 MG Oral Tablet (CeleXA) Take 1 Tablet by mouth in the morning. 11/07/2022 Lisinopril 2.5 MG Oral Tablet (Prinivil) Take 1 Tablet by mouth in the morning. 11/07/2022 Rosuvastatin Calcium 5 MG Oral Tablet (Crestor) Take 1 Tablet by mouth in the morning. 11/07/2022 Ozempic (1 MG/DOSE) 4 MG/3ML Subcutaneous Solution Pen-injector (Semaglutide (1 MG/DOSE)) Inject 1 mg under the skin once a week. Past Week OneTouch Verio In Vitro Strip (Glucose Blood) USE TO CHECK BLOOD SUGARS FOUR TIMES A DAY DIRECTED BEFORE MEALS AND AT BEDTIME (AND WITH SYMPTOMS) E11.9 11/08/2022 Insulin Lispro (1 Unit Dial) 100 UNIT/ML Subcutaneous Solution Pen-injector (HumaLOG KwikPen) Inject under the skin 5 Units three times a day with meals . 11/07/2022 Estradiol 0.1 MG/GM Vaginal Cream (Estrace) Administer into the vagina 1 g in the morning. 11/07/2022 CYANOCOBALAMIN (VITAMIN B-12) 500 MCG Sublingual Tablet Take 2 Tablets by mouth in the morning. 11/07/2022 ONETOUCH LANCETS MISC Use as directed test one four times a day 11/08/2022 BD Pen Needle Brooke U/F 32G X 4 MM (Insulin Pen Needle) Use four times daily. Albuterol Sulfate HFA 108 (90 Base) MCG/ACT Inhalation Aerosol Solution Inhale 2 Puffs by mouth every 6 hours as needed for Shortness of Breath or Wheezing. Patient not taking: Reported on 11/07/2022 Not Taking Aspirin 81 MG Oral Tablet Delayed Release Take 1 Tablet by mouth in the morning. Patient not taking: Reported on 11/07/2022 Not Taking Review of patient's allergies indicates: Allergen Reactions Codeine Anaphylaxis Jardiance [Empagliflozin] Aspirin Morphine And Related Extreme nausea and SOB Salicylates storage pole disease Physical Exam: Mental Status Examination: alert and oriented. Airway Examination: normal oropharyngeal airway and neck mobility. Respiratory Examination: clear to auscultation. CV Examination: rrr, no murmurs, no S-3 or S-4. ASA Grade: II - A patient with mild systemic disease. After reviewing the risks and benefits, the patient was deemed in satisfactory condition to undergothe procedure. The anesthesia plan was to use general anesthesia. documented in this encounter Procedure Notes * Yoselin Morgan MD - 11/08/2022 8:37 AM EDTAssociated Order(s): COLONOSCOPY [facility] Patient Name: Anahi Rowley Procedure Date: 11/08/2022 8:37 AM Date of : 1965 Admit Type: Outpatient Note Status: Finalized Date of : 1965 Admit Type: Outpatient Age: 57 Room: Endo 2 Gender: Female Note Status: Finalized Procedure: Colonoscopy Indications: Surveillance: Personal history of adenomatous polyps on last colonoscopy 5 years ago, Last colonoscopy: April 2017 Providers: Ladonna Mcdonald DO (Doctor) Referring MD: Yoselin Morgan MD (Referring MD) Medicines: Propofol per Anesthesia Complications: No immediate complications. Estimated blood loss: Minimal. Procedure: Pre-Anesthesia Assessment: - Prior to the procedure, a History and Physical was performed, and patient medications, allergies and sensitivities were reviewed. The patient's tolerance of previous anesthesia was reviewed. - The risks and benefits of the procedure and the sedation options and risks were discussed with the patient. All questions were answered and informed consent was obtained. - Patient identification and proposed procedure were verified prior to the procedure by the physician and the nurse. The procedure was verified in the pre-procedure area in the procedure room. - Mental Status Examination: alert and oriented. Airway Examination: normal oropharyngeal airway and neck mobility. Respiratory Examination: clear to auscultation. CV Examination: normal. Abdominal Examination: bowel sounds present, abdomen soft and non-tender, no masses or organomegaly noted. - ASA Grade Assessment: II - A patient with mild systemic disease. - The medication list for this patient has been reviewed prior to the procedure and has been determined that the patient may proceed with the planned study. Any medication changes made as a result of the findings of this procedure have been discussed with the patient and/or product support representative at the time of discharge from the facility. After I obtained informed consent, the scope was passed under direct vision. All instruments were visually inspected immediately before and after removal from the patient to ensure they are fully intact. Throughout the procedure, the patient's blood pressure, pulse, and oxygen saturations were monitored continuously. The [id number] Colonoscope ([id number]) was introduced through the anus and advanced to the cecum, identified by appendiceal orifice and ileocecal valve. The colonoscopy was performed without difficulty. The patient tolerated the procedure well. The quality of the bowel preparation was good. Findings & Specimens: The perianal and digital rectal examinations were normal. Pertinent negatives include normal sphincter tone and no palpable rectal lesions. A 5 mm polyp was found in the transverse colon. The polyp was sessile. The polyp was removed with a cold snare. Resection and retrieval were complete. Verification of patient identification for the specimen was done by the physician and nurse using the patient's name and date. Estimated blood loss was minimal. Internal hemorrhoids were found during retroflexion. The hemorrhoids were medium-sized and Grade I (internal hemorrhoids that do not prolapse). Impression: - One 5 mm polyp in the transverse colon, removed with a cold snare. Resected and retrieved. - Diverticulosis. - Internal hemorrhoids. Recommendation: - Await pathology results. - Repeat colonoscopy in 5 years for surveillance. - Return to primary care physician as previously scheduled. - Discharge patient to home. Ladonna Mcdonald DO 11/08/2022 9:01:27 AM This report has been signed electronically. documented in this encounter Nursing Notes * Gardenia West RN - 11/08/2022 9:20 AM EDT Patient is alert, pain free, and tolerating po fluids prior to discharge. Patient has been visited by Dr. Mcdonald. Patient has received and demonstrates understanding of discharge instructions. Patient is transported via w/c to private auto accompanied by endo staff. * Gardenia West RN - 11/08/2022 9:10 AM EDT Patient transferred to post endo s/p colonoscopy. Patient AA&O x4 Respirations are even and unlabored on room air. NSR in the 80's on the monitor. Abdomen soft and non distended. Vital signs stable. * Vijaya Gerardo RN - 11/08/2022 8:59 AM EDT Specimen(s) and location(s) verified with physician post procedure 8:59 AM Vijaya Gerardo RN Pt emerson colonoscopy w/ polypectomy well. Abd soft post proc. To recovery lying on L side. Pre cleaning of scope at the bedside started by information technology assistant. * Harriet Meadows RN - 11/08/2022 8:19 AM EDT The following pt discharge instructions reviewed with pt prior to prodedure: No driving today. No alcohol today. No signing of legal documents. Rest as much as possible today and can return to normal activities tomorrow. No operating any heavy equipment today. Diet as tolerated. Pt verbalized understanding. documented in this encounter Plan of Treatment Upcoming Encounters Date Type Specialty Care Team Description 11/20/2022 Pharmacy Pharmacy Pharmacist2, [facility] [address] [place] [id number] 12/12/2022 Office Visit Internal Medicine Yoselin Morgan MD [address] [facility] [place] [address] Pending Results Name Type Priority Associated Diagnoses Date /Time SURGICAL PATHOLOGY Pathology Routine History of colon polyps 11/08/2022 8:59 AM EDT Scheduled Orders Name Type Priority Associated Diagnoses Orde r Schedule SURGICAL PATHOLOGY Pathology Routine History of colon polyps Release Upon Ordering for 1 Occurrences starting 11/08/2022, 1 completed Scheduled Procedures Name Priority Associated Diagnoses Date/Ti me COLONOSCOPY FLEXIBLE PROXIMAL DIAGNOSTIC History of colon polyps 11/08/2022 8:43 AM EDT Health Maintenance Due Date Last Done [...] COLONOSCOPY-EVERY 5 YRS AGES 18-100 11/09/2027 11/08/2022, 05/04/2017, 05/04/2017, Additional history exists Pneumococcal Vaccine: Pediatrics (0 to 5 Years) and At-Risk Patients (6 to 64 Years) (3 - PPSV23 if available, else PCV20) 10/31/2028 05/25/2016, 03/02/2015 Hepatitis B Completed [...] Procedure Name Priority Date/Time Associated Diagnosis Comments COLONOSCOPY 11/08/2022 8:37 AM EDT GLUCOSE METER, POINT OF CARE CHRISTI 11/08/2022 8:15 AM EDT documented in this encounter Results * COLONOSCOPY (11/08/2022 8:37 AM EDT) 11/08/2022 8:37 AM EDT Procedure Note Yoselin Morgan MD - 11/08/2022 8:37 AM EDT [facility] Patient Name: Anahi Rowley Procedure Date: 11/08/2022 8:37 AM Date of : 1965 Admit Type: Outpatient Note Status:Finalized Date of : 1965 Admit Type: Outpatient Age: 57 Room: [facility] 2 Gender: Female Note Status: Finalized Procedure: Colonoscopy Indications: Surveillance: Personal history of adenomatouspolyps on last colonoscopy 5 years ago, Last colonoscopy: April 2017 Providers: Ladonna Mcdonald DO (Doctor) Referring MD: Yoselin Morgan MD (Referring MD) Medicines: Propofol per Anesthesia Complications: No immediate complications. Estimated blood loss:Minimal. Procedure: Pre-Anesthesia Assessment: - Prior to the procedure, a History and Physicalwas performed, and patient medications, allergies and sensitivities werereviewed. The patient's tolerance of previous anesthesia was reviewed. - The risks and benefits of the procedure and thesedation options and risks were discussed with the patient. All questions wereanswered and informed consent was obtained. - Patient identification and proposed procedurewere verified prior to the procedure by the physician and the nurse. The procedure wasverified in the pre-procedure area in the procedure room. - Mental Status Examination: alert and oriented.Airway Examination: normal oropharyngeal airway and neck mobility. RespiratoryExamination: clear to auscultation. CV Examination: normal. AbdominalExamination: bowel sounds present, abdomen soft and non-tender, no masses ororganomegaly noted. - ASA Grade Assessment: II - A patient with mildsystemic disease. - The medication list for this patient has beenreviewed prior to the procedure and has been determined that the patient may proceedwith the planned study. Any medication changes made as a result of the findingsof this procedure have been discussed with the patient and/or product support representative atthe time of discharge from the facility. After I obtained informed consent, the scope waspassed under direct vision. All instruments were visually inspected immediatelybefore and after removal from the patient to ensure they are fully intact. Throughout the procedure, the patient's bloodpressure, pulse, and oxygen saturations were monitored continuously. The [id number] ([id number]) was introduced through the anus and advanced to the cecum,identified by appendiceal orifice and ileocecal valve. The colonoscopy was performedwithout difficulty. The patient tolerated the procedure well. The quality of thebowel preparation was good. Findings & Specimens: The perianal and digital rectal examinations were normal. Pertinentnegatives include normal sphincter tone and no palpable rectal lesions. A 5 mm polyp was found in the transverse colon. The polyp wassessile. The polyp was removed with a cold snare. Resection and retrieval were complete. Verification ofpatient identification for the specimen was done by the physician and nurse using the patient's nameand date. Estimated blood loss was minimal. Internal hemorrhoids were found during retroflexion. The hemorrhoidswere medium- sized and Grade I (internal hemorrhoids that do not prolapse). Impression: - One 5 mm polyp in the transverse colon, removedwith a cold snare. Resected and retrieved. - Diverticulosis. - Internal hemorrhoids. Recommendation: - Await pathology results. - Repeat colonoscopy in 5 years for surveillance. - Return to primary care physician as previouslyscheduled. - Discharge patient to home. Ladonna Mcdonald DO 11/08/2022 9:01:27 AM This report has been signed electronically. Yoselin Morgan MD GASTRO LOWER * (ABNORMAL) GLUCOSE METER, POINT OF CARE (11/08/2022 8:15 AM EDT) Glucose Meter 143(H) 70 - 120 mg/dL 11/08/2022 8:21 AM EDT LAB[facility]AT[facility] 57-00 Blood Whole blood specimen / Unknown 11/08/2022 8:15 AM EDT 11/08/2022 8:21 AM EDT Ladonna Mcdonald DO LAB POINT OF CARE TE ST DOCKED DEVICE UNSOLICITED RESULTS [facility] [employer] 57-[address] [facility] [place] [address] documented in this encounter Visit Diagnoses Diagnosis History of colon polyps Personal history of colonic polyps documented in this encounter Administered Medications Inactive Administered Medications - up to 3 most recent administrations Medication Order MAR Action Action Date Dose Rate Site isolyte-S pH 7.4 infusion Intravenous, at 100 mL/hr, Plasma-LYTE 148, isolyte-S, and isolyte-S pH 7.4 are considered equivalent - including for MAR barcode scanning., CONTINUOUS, Starting on Sun11/08/22 at 0830, Until Sun11/08/22 at 1324, Pre-Op Continue from Pre-Op 11/08/2022 8:43 AM EDT 100 mL/hr New Bag 11/08/2022 8:18 AM EDT 100 mL/hr documented in this encounter Active and Recently Administered Medications Times are shown in EDT. Continuous Medication Order 11/06/2022 11/07/2022 11/08/2022 isolyte-S pH 7.4 infusion Intravenous, at 100 mL/hr, Plasma-LYTE 148, isolyte-S, and isolyte-S pH 7.4 are considered equivalent - including for MAR barcode scanning., CONTINUOUS, Starting on Sun11/08/22 at 0830, Until Sun11/08/22 at 1324, Pre-Op 0818 (New Bag - Prov ider: Harriet Meadows RN)[phone] (Continue from Pre-Op - Provider: Ann Layton CRNA)0859 (Stopped - Provider: Ann Layton CRNA) documented in this encounter Advance Directives Latest Code Status on File Code Status Date Activated Date Inactivated Comments Full Code 02/17/2020 7:23 AM 02/17/2020 1:49 PM Thi s order reflects the patients wishes and were consensually agreed upon. Question Answer Comments Discussion of Advance Directives occurred with: Not Discussed Care Teams Store Receiving Clerk Relationship Specialty Start Date End Date Yoselin Morgan MD [address] [facility] [place] [address] PCP - General Internal Medicine 01/05/16 documented as of this encounter
--- OUTSIDE RECORDS SUMMARY | 2023-05-05 09:49 | External Medical Summary | Summary of Care ---
Author Name Unknown Organization [facility] Address [address] [place] [address] Phone [phone] Care Team Providers Care Corporate Ethics Officer Name Role Phone Yoselin Morgan MD Primary Care Provider + Reason for Visit * Reason Comments Dosage Adjustment In Person (Anticoag Cl inic) Diabetes Management Encounter Details Date Type Department Care Team Description 12/04/2022 Office Visit Pharmacy, 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 100 Tab 5 9 Active Estradiol 0.1 MG/GM Vaginal Cream (Estrace)Indicati ons:Postmenopausa l atrophic vaginitis Administer into the vagina 1 g in the morning. 42.5 g 3 2 Active OneTouch Verio In Vitro [...] before bedtime. 360 Tablet 3 3 Active Citalopram Hydrobromide 40 MG Oral Tablet (CeleXA) TAKE 1 TABLET BY MOUTH IN THE MORNING 90 Tablet 2 3 Active Lisinopril 2.5 MG Oral Tablet (Prinivil)Indicat ions:Type 2 diabetes mellitus with hemoglobin A1c goal of less than 7.0% (HCC) TAKE 1 TABLET BY MOUTH IN THE MORNING 90 Tablet 3 3 Active Insulin Glargine-yfgn 100 UNIT/ML Subcutaneous Solution (Semglee (yfgn))Indication s:Type 2 diabetes mellitus with hemoglobin A1c goal of less than 7.0% (HCC) Inject 30 Units under the skin at bedtime. 30 mL 3 3 Active Insulin Lispro (1 Unit Dial) 100 UNIT/ML Subcutaneous Solution Pen-injector (HumaLOG KwikPen)Indicatio ns:Type 2 diabetes mellitus with hemoglobin A1c goal of less than 7.0% (HCC) Inject 8 units with meals three times daily PLUS correct factor of 1:50. Max daily dose of 40 units per day. 15 mL 3 3 Active Insulin Lispro (1 Unit Dial) 100 UNIT/ML Subcutaneous Solution Pen-injector (HumaLOG KwikPen)Indicatio ns:Type 2 diabetes mellitus with hemoglobin A1c goal of less than 7.0% (HCC) Inject under the skin 5 Units three times a day with meals . 15 mL 3 2 12/05/19 23 Discontinued Insulin Glargine-yfgn 100 UNIT/ML Subcutaneous Solution (Semglee (yfgn)) Inject 19 Units under the skin at bedtime. 15 mL 3 3 12/05/19 23 Discontinued documented as of this encounter (statuses as of 12/04/2022) Active Problems Problem Noted Date Melanoma of [...] as of this encounter (statuses as of 12/04/2022) Resolved Problems Problem Noted Date Resolved Date Depression 05/07/2015 07/01/2015 Obesity, Class II, BMI 35-39.9, isolated (see ac tual BMI) 03/02/2015 01/10/2019 Iron deficiency anemia 08/14/2006 4 Thrombocytopenia 07/29/2013 documented as of this encounter (statuses as of 12/04/2022) Immunizations Name Administration Dates Next Due COVID-19 mRNA, LNP-s, No Pre serve, 2-Dose Series ([employer]) 02/09/2021,05/29/2020,05/08/2020 05/29/2020 Hepatitis B, 20+ yrs 02/14/2019,09/20/19 [...] this encounter Progress Notes * Juventino Calixto, [facility] - 12/04/2022 10:33 AM EDT Medication Therapy Disease Management [facility] - Diabetes Management Progress Note Anahi Rowley, identified by name and date of , is a 57 year old female being seen for diabetes management/education. Patient presents for return diabetic visit. DIABETES: Current diabetic medications: Metformin ER 500 mg 2 tabs twice daily (as tolerated, patient starting from1 tab BID, has had nausea with metformin in the past ) Ozempic 1 weekly (Sundays) Semglee 20unitsbedtime(drop by 1 units if BG <70) ADJ: Humalog 5 units TID with meals (decrease dose if BG <150 according to sliding scale below) Medication Injection Site: Abdomen Lifestyle: Diet: unchanged Glucose Review/SMBG: Readings obtained from patient device Hypoglycemia: Does your blood sugar go below 70 mg/dL? No Hyperglycemia symptoms present: none Recent Labs Units 12/04/22 1012 06/13/22 0823 11/25/21 1019 HEMOGLOBIN A1C - [facility] % -- 9.6* -- HEMOGLOBIN A1C POCT - [facility] % 9.9* -- 9.1* Recent Labs Units 06/13/22 0823 05/24/21 1517 ESTIMATED GLOMERULAR FILTRATION RATE - [facility] mL/min 80 >90 CREATININE - [facility] mg/dL 0.8 0.7 HYPERTENSION: Patient on ACEi/ARB: yes BP Readings from Last 3 Encounters: 11/08/22 112/96 06/13/22 110/78 12/08/21 110/60 Blood pressure at goal: yes HYPERLIPIDEMIA: Patient is taking moderate or high intensity statin: yes HEALTH MAINTENANCE REVIEW: Health Maintenance Due Topic Date Due COVID-19 Vaccine (4 - Pfizer series) 04/06/2021 Depression, Most Recent Score >= 10 (will fire each visit until score < 10) 06/10/2021 DIABETES-EYE EXAM 07/21/2022 HbA1c 12/11/2022 ASSESSMENT & PLAN: ICD-10-CM 1. Type 2 diabetes mellitus with hemoglobin A1c goal of less than 7.0% (HCC) E11.9 BG Readings - Blood sugars uncontrolled. BG averaging 275 per dexcom. POCT A1c done today 9.9%. Medications - Reviewed current regimen, patient is adherent to regimen. Patient agreeable to increase insulin doses. Diet, Exercise, Lifestyle - No significant lifestyle changes since last visit. Patient is agreeable to SMBG 4 time(s) daily. Patient aware to contact clinic if any hypoglycemia before next visit. MEDICATION CHANGES: yes, see below; preferred pharmacy: [facility] Medications: Metformin ER 500 mg 2 tabs twice daily (as tolerated, patient starting from1 tab BID, has had nausea with metformin in the past ) Ozempic 1 weekly (Sundays) INC: Semglee 30unitsbedtime(drop by 1 units if BG <70) ADJ: Humalog 8 units TID with meals plus 1:50 correction factor 12/04/22 Fast Acting Insulin: Humalog To find insulin dose: 1) Find the [...] Am meal Lunch PM Meal No food 0 to 49 6 6 6 0 50 to 99 7 7 7 0 100 to 149 8 8 8 0 150 to 199 8 8 8 0 200 to 249 9 9 9 1 250 to 299 10 10 10 2 300 to 349 11 11 11 3 350 to 399 12 12 12 4 Parameters fixed 8 8 8 frandy 50 over 150 HEALTH MAINTENANCE INTERVENTIONS: Labs: Up to Date (POCT A1c done today) Immunizations: Up to Date Foot Exam: Up to Date Eye Exam: Up to Date Annual Wellness Visit: N/A FOLLOW UP: Return to clinic in 8 weeks 01/31/2023 Juventino Calixto [facility] Clinical Pharmacist - [employer] Medication Therapy Management Clinic 12/04/2022, 10:33 AM documented in this encounter Plan of Treatment Upcoming Encounters Date Type Specialty Care Team Description 12/12/2022 Office Visit Internal Medicine Yoselin Morgan MD [address] [place] [address] 01/31/2023 Office Visit Pharmacy Pharmacist, [facility] [address] [place] [address] Health Maintenance Due Date Last Done Comments [...] Procedure Name Priority Date/Time Associated Diagnosis Comments HEMOGLOBIN A1C, POINT OF CARE Routine 12/04/2022 10:12 AM EDT Type 2 diabetes mellitus with hemoglobin A1c goal of less than 7.0% (HCC) documented in this encounter Results * (ABNORMAL) HEMOGLOBIN A1C, POINT OF CARE (12/04/2022 10:12 AM EDT) Hemoglobin A1c 9.9(H) 4.0 - 5.6 % 12/04/2022 10:49 AM EDT [facility] 56-02 Blood 12/04/2022 10:1 2 AM EDT 12/04/2022 10:49 AM EDT Juventino Calixto [facility] LAB POINT O F CARE TEST DOCKED DEVICE UNSOLICITED RESULTS [facility] [address] [facility] [address] documented in this encounter Visit Diagnoses Diagnosis Type 2 [...] Directives occurred with: Not Discussed Care Teams Corporate Ethics Officer Relationship Specialty Start Date End Date [facility]os[facility] Morgan [facility] [address] [facility] [address] PCP - General Internal Medicine 01/05/16 documented as of this encounter
--- OUTSIDE RECORDS SUMMARY | 2023-05-05 09:49 | External Medical Summary ---
Author Name Unknown Address Unknown Organization K09:[facility] [place] [id number] Laboratory Report Ordering Provider Test Date Status MINNIE BAXTER 12/04/2022 10:12:19 Final Observation Date Value Abnormality Reference (Units ) Status HbA1C 12/04/2022 10:12:19 9.9 Above high normal 4. 0-5.6 (%) Final Performing Location [facility] [place] [id number]
[2023-05-05 10:35] LABS: Thyroid Stimulating Hormone 1.226 uIu/ml (0.300-4.500)
[2023-05-05] MEDS: MAGNESIUM OXIDE 400 MG TAB PO SCH ×2 (10:44→21:46)
[2023-05-05] MEDS: CYANOCOBALAMIN (B-12) 500 MCG TABLET PO SCH (10:44)
[2023-05-05] MEDS: ROSUVASTATIN CALCIUM 5 MG TAB PO SCH (10:44)
--- OUTSIDE RECORDS SUMMARY | 2023-05-05 11:06 | External Medical Summary | Summary of Care ---
Author Name Unknown Organization [facility] Address [address] [place] [address] Phone [phone] Care Team Providers Care Ribbon Winder Name Role Phone Yoselin Morgan MD Primary Care Provider + Reason for Visit * Reason Comments Chills Generalized Body Aches X 7 days Fatigue Headache Fever Vomiting Diarrhea Encounter Details Date Type Department Care Team (Latest Contact Info) Description 05/04/2023 2:30 PM EST Convenient Care Visit [facility] [address] [place] [address] Katia Peoples PA-C [address] [facility] [place] [address] Upper respiratory tract infection, unspecified type*; Type 2 diabetes mellitus with hyperglycemia, with long-term current use of insulin ([facility]); Nausea and vomiting, unspecified vomiting type Allergies Active Allergy Reactions Criticality Noted Date Comments Aspirin 02/22/2015 Codeine Anaphylaxis High 05/22/2012 Empagliflozin High 03/16/2020 Morphine And Related 11/16/1999 Extreme nausea and SOB 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 0 08/22/2017 Active Aspirin 81 MG Oral Tablet Delayed ReleaseIndications: Type 2 diabetes mellitus with hemoglobin A1c goal of less than 7.0% (HCC) Take 1 Tablet by mouth in the morning. 100 Tab 5 02/14/2019 Active Estradiol 0.1 MG/GM Vaginal Cream (Estrace)Indication s:Postmenopausal atrophic vaginitis Administer into the vagina 1 g in the morning. 42.5 g 3 06/09/2021 Active OneTouch Verio In Vitro Strip (Glucose Blood)Indications:T ype 2 diabetes mellitus with hemoglobin A1c goal of less than 7.0% (HCC) USE TO CHECK BLOOD SUGARS FOUR TIMES A DAY DIRECTED BEFORE MEALS AND AT BEDTIME (AND WITH SYMPTOMS) E11.9 200 Strip 3 02/15/2022 Active Albuterol Sulfate HFA 108 (90 Base) MCG/ACT Inhalation Aerosol SolutionIndications :Post viral asthma Inhale 2 Puffs by mouth every 6 hours as needed for Shortness of Breath or Wheezing. 18 g 3 04/10/2022 Active BD Pen Needle Brooke U/F 32G X 4 MM (Insulin Pen Needle)Indications: Type 2 diabetes mellitus with hemoglobin A1c goal of less than 7.0% (HCC) Use four times daily. 400 Each 3 06/08/2022 Active Dexcom G6 SensorIndications:T ype 2 diabetes mellitus with hemoglobin A1c goal of less than 7.0% (HCC) Use as directed. Change every 10 days. 10 Each 3 07/20/2022 Active Dexcom G6 TransmitterIndicati ons:Type 2 diabetes mellitus with hemoglobin A1c goal of less than 7.0% (HCC) Use as directed. Replace every 3 months 1 Each 3 07/20/2022 Active metFORMIN HCl ER 500 MG Oral Tablet Extended Release 24 Hour (Glucophage XR)Indications:Type 2 diabetes mellitus with hemoglobin A1c goal of less than 7.0% (HCC) Take 2 Tablets by mouth in the morning and 2 Tablets before bedtime. 360 Tablet 3 07/26/2022 Active Citalopram Hydrobromide 40 MG Oral Tablet (CeleXA) TAKE 1 TABLET BY MOUTH IN THE MORNING 90 Tablet 2 11/19/2022 Active Lisinopril 2.5 MG Oral Tablet (Prinivil)Indicatio ns:Type 2 diabetes mellitus with hemoglobin A1c goal of less than 7.0% (HCC) TAKE 1 TABLET BY MOUTH IN THE MORNING 90 Tablet 3 11/19/2022 Active Nitrofurantoin Monohyd Macro 100 MG Oral Capsule (Macrobid) Take 1 Capsule by mouth in the morning and 1 Capsule before bedtime. With food until gone. 14 Capsule 0 01/18/2023 Active Rosuvastatin Calcium 5 MG Oral Tablet (Crestor)Indication s:Hyperlipidemia with target LDL less than 100 Take 1 Tablet by mouth in the morning. 30 Tablet 5 02/21/2023 Active Insulin Lispro (1 Unit Dial) 100 UNIT/ML Subcutaneous Solution Pen-injector (HumaLOG KwikPen)Indications :Type 2 diabetes mellitus with hemoglobin A1c goal of less than 7.0% (HCC) Inject 8 units with Breakfast and dinner, 12 units with lunch, PLUS correct factor of 1:45 over 120. Max daily dose of 55 units per day. 30 mL 3 03/12/2023 Active Insulin Glargine-yfgn 100 UNIT/ML Subcutaneous Solution (Semglee (yfgn))Indications: Type 2 diabetes mellitus with hemoglobin A1c goal of less than 7.0% (HCC) Inject 30 Units under the skin at bedtime. 30 mL 3 03/13/2023 Active Ozempic (1 MG/DOSE) 4 MG/3ML Subcutaneous Solution Pen-injector (Semaglutide (1 MG/DOSE))Indication s:Type 2 diabetes mellitus with hemoglobin A1c goal of less than 7.0% (HCC) Inject 1 mg under the skin once a week. 9 mL 1 04/17/2023 Active documented as of this encounter (statuses as of 05/04/2023) Active Problems Problem Noted Date Diagnosed Date [...] as of this encounter (statuses as of 05/04/2023) Resolved Problems Problem Noted Date Diagnosed Date Resolved Date Depression 05/07/2015 07/01/2015 Obesity, Class II, BMI 35-39 .9, isolated (see actual BMI) 03/02/2015 01/10/2019 Iron deficiency anemia 08/14/200607/29 Thrombocytopenia 07/29/2013 documented as of this encounter (statuses as of 05/04/2023) Immunizations Name Administration Dates Next Due COVID-19 mRNA, LNP-s, No Pre serve, 2-Dose Series (Chideo) 02/09/2021,05/29/2020,05/08/2020 05/29/2020 Hepatitis B, 20+ yrs 02/14/2019,09/20/19 [...] Sign Reading Time Taken Comments Blood Pressure 140/90 05/04/2023 2:53 PM EST Pulse 120 05/04/2023 2:53 PM EST Temperature 37.9 C (100.3 F) 05/04/2023 2:[address] Respiratory Rate 16 05/04/2023 2:53 PM EST Oxygen Saturation 98% 05/04/2023 2:53 PM EST Inhaled Oxygen Concentration - - Weight - - Height - - Body Mass Index - - documented in this encounter Progress Notes * Katia Peoples PA-C - 05/04/2023 2:52 PM EST Anahi Rowley is a 57 year old female. who presents with upper and lower respiratory symptoms for 1week(s) Patient was accompanied by Self. HPI Signs and Symptoms include: fatigue, headache, fever, vomiting, diarrhea, chills Severity of Symptoms: Moderate Timing (how often does it occur): Constant Modifying Factors (what was done since onset of symptoms): tylenol, ibuprofen Constitutional: + fevers, chills, sweats, fatigue Patient notes that on Sunday she felt like her sugar was low. She has a dexcom and it reported highreadings. She notes that her bg level has been consistently above 400's for 5 days. She has been unable to get it controlled. She is on insulin. She also notes that she has been vomiting consistentlyfor the last 5 days. Recent illnesses in household: no Patient has not been positive for COVID in the last 90 days ROS All others negative other than those noted in HPI HISTORY Patient Active Problem List Diagnosis Code Migraine with aura G43.109 EXT ASTHMA W-O STAT ASTH J45.909 No advance directive on file Z78.9 Dermatophytosis of nail B35.1 History of iron deficiency Z86.39 History of thrombocytopenia Z86.2 GERD (gastroesophageal reflux disease) K21.9 Adjustment disorder with depressed mood F43.21 Type 2 diabetes mellitus with hemoglobin A1c goal of less than 7.0% ([facility]) E11.9 Mild single current episode of major depressive disorder ([facility]) F32.0 Generalized anxiety disorder F41.1 Hyperlipidemia with target LDL less than 100 E78.5 H/O dysplastic nevus Z86.018 Hx of melanoma of skin Z85.820 Type 2 diabetes mellitus with hyperglycemia (HCC) E11.65 Melanoma of lower leg, right ([facility]) C43.71 Current Outpatient Medications Medication Sig Dispense Refill ONETOUCH LANCETS MISC Use as directed test one four times a day 1 Box Dosing Unit 0 CYANOCOBALAMIN (VITAMIN B-12) 500 MCG Sublingual Tablet Take 2 Tablets by mouth in the morning. OneTouch Verio In Vitro Strip (Glucose Blood) USE TO CHECK BLOOD SUGARS FOUR TIMES A DAY DIRECTED BEFORE MEALS AND AT BEDTIME (AND WITH SYMPTOMS) E11.9 200 Strip 3 Albuterol Sulfate HFA 108 (90 Base) MCG/ACT Inhalation Aerosol Solution Inhale 2 Puffs by mouth every 6 hours as needed for Shortness of Breath or Wheezing. 18 g 3 BD Pen Needle Brooke U/F 32G X [...] MOUTH IN THE MORNING 90 Tablet 3 Rosuvastatin Calcium 5 MG Oral Tablet (Crestor) Take 1 Tablet by mouth in the morning. 30 Tablet 5 Insulin Lispro (1 Unit Dial) 100 UNIT/ML Subcutaneous Solution Pen-injector (HumaLOG KwikPen) Inject 8 units with Breakfast and dinner, 12 units with lunch, PLUS correct factor of 1:45 over 120. Max daily dose of 55 units per day. 30 mL 3 Insulin Glargine-yfgn 100 UNIT/ML Subcutaneous Solution (Semglee (yfgn)) Inject 30 Units under the skin at bedtime. 30 mL 3 Ozempic (1 MG/DOSE) 4 MG/3ML Subcutaneous Solution Pen-injector (Semaglutide (1 MG/DOSE)) Inject 1 mg under the skin once a week. 9 mL 1 Aspirin 81 MG Oral Tablet Delayed Release Take 1 Tablet by mouth in the morning. (Patient not taking: Reported on 11/07/2022) 100 Tab 5 Estradiol 0.1 MG/GM Vaginal Cream (Estrace) Administer into the vagina 1 g in the morning. 42.5 g 3 Nitrofurantoin Monohyd Macro 100 MG Oral Capsule (Macrobid) Take 1 Capsule by mouth in the morning and 1 Capsule before bedtime. With food until gone. 14 Capsule 0 No current facility-administered medications for this visit. Past Medical History: Diagnosis Date Asthma Has not needed inhaler for over 1 year Cervical intraepithelial neoplasia grade [address] Durand Depression 05/07/2015 GERD (gastroesophageal reflux disease) 05/07/2015 Iron deficiency anemia 08/04 Thrombocytopenia ([facility]) Type 2 diabetes mellitus with hemoglobin A1c goal of less than 7.0% ([facility]) 12/21/2015 Past Surgical History: Procedure Laterality Date ARTHROPLASTY KNEE TOTAL Left 08/2005 left knee 09/02, severe arthritis, Dr Pearce ARTHROPLASTY KNEE TOTAL Right 11/19/2015 Sens[facility] at [facility] BX LYMPH NODE-SUPERFIC Right 02/17/2020 BIOPSY LYMPH NODE OPEN SUPERFICIAL performed by Paul Maldonado MD at [facility] DELIVERY Delivery Only X 2 COLONOSCOPY, DIAGNOSTIC (RECTUM) 08/08/2016 polyp, diverticulosis, repeat 6-12 mo/COLONOSCOPY FLEXIBLE PROXIMAL DIAGNOSTIC performed by Ladonna Mcdonald DO at [facility] COLONOSCOPY, DIAGNOSTIC (RECTUM) 05/04/2017 hyperplastic polyps, diverticulosis, repeat 5 yrs/COLONOSCOPY FLEXIBLE PROXIMAL DIAGNOSTIC performed by Ladonna Mcdonald DO at [facility] COLONOSCOPY, DIAGNOSTIC (RECTUM) 11/08/2022 diverticulosis/hemorrhoids/biopsies show adenomatous polyps/recall 5 years/COLONOSCOPY FLEXIBLE PROXIMAL DIAGNOSTIC performed by Ladonna Mcdonald DO at [facility] DENTAL SURGERY PROCEDURE NEC wisdom teeth KNEE ARTHROSCOPY, DIAGNOSTIC Knee Arthroscopy X 2 right and left LIGATE/CUT OVIDUCT(S) MAMMOGRAM - BILATERAL 02/14/2007 Birad code 2 PARTIAL HYSTERECTOMY 2010 ovaries left in REMOVAL OF APPENDIX Appendectomy RMV MALG LSN TRK/ARM/LG 1.1-2C Right 02/17/2020 EXCISION MALIGNANT TRUNK ARM LEG 1.1 TO 2CM performed by Paul Maldonado MD at [facility] Review of patient's allergies indicates: Allergen Reactions Codeine Anaphylaxis Jardiance [Empagliflozin] Aspirin Morphine And Related Extreme nausea and SOB Salicylates storage pole disease Family History Problem Relation Age of Onset Gastro-intestinal disorder Father ulcer/chloecystectomy Allergies Father Arthritis Father knee replacement Blood Disorder Father thrombocytopenia Cancer Grandfather (Paternal) prostate Heart Disorder Grandfather (Paternal) NV @ 41 Heart Disorder Grandfather (Maternal) CHF, @ 66 Hypertension Grandfather (Maternal) Heart Disorder Grandmother (Maternal) afib Mental Disorder Grandmother (Maternal) dementia Gastro-intestinal disorder Grandmother (Maternal) Diverticulitis, hiatal hernia, Stroke Grandmother (Maternal) from stroke age 81 Hypertension Grandmother (Maternal) Asthma Daughter Blood Disorder Brother thrombocytopenia No Past Hx Son Family Status Relation Status Fa (Not Specified) PGFA (Not Specified) MGFA (Not Specified) MGMA (Not Specified) Barrera (Not Specified) Bro (Not Specified) Son (Not Specified) Social History Socioeconomic History Marital status: Spouse name: Alessandro Number of children: 2 Years of education: 14 Highest education level: Not on file Occupational History Employer: [employer] [place] Comment: [employer] 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 Employer: [employer] [place] Occupation: [employer] Tobacco Use Smoking status: Never Smokeless tobacco: Never Substance and Sexual Activity Alcohol use: Yes Comment: social Drug use: No Sexual activity: Not on file Other Topics Concern Not on file Social History Narrative 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 Social Determinants of Health Financial Resource Strain: Not on file Food Insecurity: No Food Insecurity (06/09/2021) Hunger Vital Sign Worried About Running Out of Food in the Last Year: Never true Ran Out of Food in the Last Year: Never true Transportation Needs: Not on file Physical Activity: Not on file Stress: Not on file Social Connections: Not on file Intimate Partner Violence: Not on file Housing Stability: Not on file OBJECTIVE BP 140/90 (BP Site: Left Arm, BP Position: Sitting, BP Cuff Size: Regular) | Pulse 120 | Temp 37.9 C (100.3 F) (Tympanic) | Resp 16 | LMP 11/20/2009 | SpO2 98% Physical Exam: General Appearance: awake, +needs to be re-awakened in between short periods of solitude. +palor, +shaking, +anxious HEENT: perrl and eomi Tm right: clear, normal light reflex, no erythema Tm left: clear, normal light reflex, no erythema oral pharynx clear, mucus membranes dry + red and irritated pharynx no sinus tenderness or facial pain to percussion + turbinate engorgement and discharge Neck: normal, supple, + adenopathy Respiratory: clear to auscultation, no rhonchi, no wheezes and no crackles Heart: regular rate, regular rhythm, no murmurs , no rubs and no gallops Skin: skin color, texture, turgor as above no rashes or significant lesions ASSESSMENT AND PLAN Upper respiratory tract infection, unspecified type (Primary) Type 2 diabetes mellitus with hyperglycemia, with long-term current use of insulin (HCC) Nausea and vomiting, unspecified vomiting type Concerned for prolonged state of hyperglycemia and concern for DKA. Recommend patient be evaluated and treated for this at the ED. Patient would like to go by private vehicle. Spouse is willing to take her. ED triage nurse contacted and patient presented for continuity of care. Care instructions given. Additional instructions per patient instructions attached. Patient agrees with the plan and demonstrates verbal understanding. Patient stable at the time of discharge. I spent a total of 35 minutes on the date of service in preparation, delivery, and documentation ofthe care provided to Anahi Rowley excluding any time spent in the performance of separately billedservices. Patient goals for plan of care were discussed. Katia Peoples PA-C [address] [place] [address] documented in this encounter Nursing Notes * Ashley Caceres RT - 05/04/2023 2:27 PM EST Anahi Rowley is a 57 year old female who presents to walk-in clinic today complaining of Chief Complaint Patient presents with Chills Generalized Body Aches X 7 days Fatigue Headache Fever Vomiting Diarrhea Tried: tylenol, and ibuprofen Pt accompanied by: self documented in this encounter Plan of Treatment Upcoming Encounters Date Type Department Care Team (Late st Contact Info) Description 05/07/2023 8:00 AM EST Office Visit Pharmacy, [facility] [address] [place] [address] Pharmacist2, [facility] [address] [place] [address] Scheduled Procedures Name Priority Associated Diagnoses Date/Ti me COLONOSCOPY FLEXIBLE PROXIMA L DIAGNOSTIC Recall History of colonic polyps Health Maintenance Due Date Last Done Comments Depression, Most Recent Score >= 10 (will fire each visit until score < 10) 06/10/2021 06/09/2021 Diabetic Eye Exam 07/21/2022 07/21/2021, , 05/08/2019, Additional history exists COVID-19 Vaccine ( season) 2022 02/09/2021, 05/29/2020, 05/08/2020 Albumin/Creatinine Ratio 06/13/2023 023, 02/07/2019, 02/21/2018, Additional [...] history exists Zoster Vaccines Completed 11/28/2019, 05/29/2019 Influenza Vaccine (FLU shot) Completed 03/2023, 02/08/2022, 02/03/2021, Additional history exists GARDASIL-HPV IMMUNIZATION SERIES Aged Out No longer eligible based on patient's age to complete this topic MENINGOCOCCAL (MENACTRA/MENVEO) Aged Out No longer eligible based on patient's age to complete this topic documented as of this encounter Medical Devices Not on filedocumented as of this encounter Visit Diagnoses Diagnosis Upper respiratory tract infection, unspecified type- Primary Type 2 diabetes mellitus with hyperglycemia, with long-term current use of insulin (HCC) Nausea and vomiting, unspecified vomiting type documented in this encounter Advance Directives Latest Code Status on File Code Status Date Activated Date Inactivated Comments Full Code 02/17/2020 7:23 AM 02/17/2020 1:49 PM Thi s order reflects the patients wishes and were consensually agreed upon. Question Answer Comments Discussion of Advance Directives occurred with: Not Discussed Care Teams Ribbon Winder Relationship Specialty Start Date End Date Yoselin Morgan MD [address] [place] [address] PCP - General Internal Medicine 01/05/16 documented as of this encounter"
[2023-05-05 11:20] LABS: ANTI-Xa, UFH(UnfractionatedHep 0.69 IU/ml (0.3-0.7)
--- NOTE | 2023-05-05 13:01 | Cardiology Consultation ---
Date of Consultation May 05, 2023 Assessment & Plan (1) Paroxysmal atrial fibrillation: (2) COVID-19: (3) Anemia: (4) Acute hyperglycemia: Plan 57 year old female (1) Paroxysmal atrial fibrillation: Patient presents with paroxysmal atrial fibrillation of unknown duration. She was in sinus rhythm yesterday afternoon documented on EKG, and it is difficult to determine if she has been going in and out of atrial fibrillation for longer than 24 hours. Her [id number] score is at least 2 for risk factors of female sex and history of diabetes. Her systolic blood pressure has been slightly low with measurements between 80 and 100 mmHg. At this time we will proceed with electrolyte replacement and she is already to receive magnesium supplementation. Will hold her outpatient lisinopril for now favoring addition of low-dose metoprolol tartrate 12.5 mg 4 times daily with hold for heart rate less than 60 and systolic blood pressure less than 90 mmHg. Proceed with 2 doses of IV digoxin. Cautiously proceed with heparin infusion for stroke prophylaxis especially in the setting of SARS-CoV-2 illness will be mindful of her anemia. (2) COVID-19: Pulse oximetry is 97% on room air. No indication for remdesivir. Continue supportive care. (3) Anemia: Patient with noted microcytic anemia, with iron deficiency. She denies any hematuria or blood per rectum at home. Denies any gross p ostmenopausal bleeding. Continue cautious anticoagulation. Iron replacement recommended. Will need outpatient anemia workup after acute illnesses resolved. (4) Acute hyperglycemia: Blood sugar trending toward improvement. History of Present Illness Attending Physician: Ravi Elizondo MD History of Present Illness Anahi Rowley is a 57-year-old female seen in cardiology consultation per the request of Dr. Pulido and Dr Elizondo for the evaluation of atrial fibrillation with rapid ventricular response. The patient is accompanied by her , Joesph, at the bedside and telemetry room 232 at the time my assessment. 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 She notes feeling ill since around 04/24/2023 with symptoms of upset stomach and nauseousness and ultimately shortness of breath, fevers, chills, and bodyache s.She tested positive for SARS-CoV-2. Presentation she was in sinus rhythm, but overnight has gone in and out of atrial fibrillation most recently having reverted back to atrial fibrillation. At the time my assessment, atrial fibrillation with ventricular rate of around 110 bpm noted. She is otherwise feeling well from a cardiac perspective without chest discomfort, shortness of breath, or subjective palpitations. Most recent blood pressure 96/67. Family History: no family history of heart disease Allergies Allergy/AdvReac Type Severity Reaction Status Date / Time codeine Allergy Severe HIVES,SOB Verified 03/06/20 20:01 adhesive Allergy Intermediate RED,ITCHY,H Verified 03/06/20 20:01 BINA Sulfa (Sulfonamide Allergy Intermediate "SULFA Verified 03/06/20 20:01 Antibiotics) DRUGS": RASH AND HIVES salicylates Allergy Unknown PT Verified 03/06/20 20:01 STORAGE POLE DISEASE empagliflozin AdvReac Intermediate poss Verified 03/06/20 23:05 [From Jardiance] euglycemic dka morphine AdvReac Intermediate EXTREME Verified 03/06/20 20:01 NAUSEA AND VOMITING Home Medications Medication Instructions Recorded Confirmed Type citalopram 10 mg tablet 10 mg PO HS 03/06/20 05/04/23 History cyanocobalamin (vitamin B-12) 500 500 mcg PO QAM 03/06/20 05/04/23 History mcg tablet (Vitamin B-12) lisinopril 2.5 mg tablet 2.5 mg PO QAM 03/06/20 05/04/23 History semaglutide 1 mg/dose (2 mg/1.5 1 mg subcut WK 03/06/20 05/04/23 History mL) subcutaneous pen injector (Ozempic) Pen Needle 32 gauge x 5/32" (pen #100 ea 03/09/20 Rx needle, diabetic) insulin glargine-yfgn 100 unit/mL 30 unit subcut HS 05/04/23 05/04/23 History (3 mL) subcutaneous pen (Semglee (insulin glargine-yfgn) Pen) insulin lispro 100 unit/mL See Rx Instructions .Route .COMPLEX 05/04/23 05/04/23 History subcutaneous pen metformin 500 mg tablet,extended 1,000 mg PO BID 05/04/23 05/04/23 History release 24 hr rosuvastatin 5 mg tablet 5 mg PO QAM 05/04/23 05/04/23 History Patient History Medical History Melanoma Diabetes with ketoacidosis Diabetes Surgical History Hx of melanoma excision Social History Smoking Status: Never smoker Hx Alcohol Use: Yes Alcohol type: wine Hx Substance Use: No Preferred Language: [place]de[place] Communication Ability: Effective Inspector Firearms Required: No Beliefs That Will Affect Care: None Current Living Situation: Spouse Feels Safe at Home: Yes Assistive Devices: Glasses Review of Systems Review of Systems: All systems reviewed & are unremarkable except as noted in HPI & below Physical Exam Constitutional: WD/WN, vitals as above well developed Eyes: PERRL, conjunctivae normal, anicteric sclerae Neck: trachea midline, no thyromegaly Respiratory: normal respiratory effort; no respiratory distress and no labored breathing Cardiovascular: Rate/Rhythm: + tachycardic Vessels: no JVD Extremities: no edema Gastrointestinal (Abdomen): normal bowel sounds, soft, nontender, no hepatosplenomegaly Neurologic: PERRL, EOMI, accommodation nl, no face palsy, no dysarthria Results & Data Vital Signs (Past 12 Hours) Vital Signs Temp Pulse Pulse Resp BP BP Pulse Ox 05/05/23 12:40 36.8 C 109 H 18 96/67 L 97 05/05/23 09:00 05/05/23 08:16 95 H 96/71 L 05/05/23 08:00 36.9 C 05/05/23 07:49 104 H 104/74 05/05/23 07:22 103 H 05/05/23 06:33 108 H 15 104/77 96 05/05/23 04:23 84 18 106/67 100 05/05/23 02:47 85 19 96/61 L 05/05/23 02:47 05/05/23 02:41 90 05/05/23 02:25 137 H 92/64 L 05/05/23 02:14 105 H 19 82/56 L 95 05/05/23 02:03 140 H 111/79 05/05/23 01:40 36.9 C 05/05/23 01:39 144 H 19 111/79 93 Pulse Ox O2 Del Method O2 Del Method 05/05/23 12:40 Room Air 05/05/23 09:00 Room Air 01/06/24 08:16 05/05/23 08:00 05/05/23 07:49 05/05/23 07:22 05/05/23 06:33 Room Air 05/05/23 04:23 Room Air 05/05/23 02:47 05/05/23 02:47 96 Room Air 05/05/23 02:41 05/05/23 02:25 05/05/23 02:14 Room Air 05/05/23 02:03 05/05/23 01:40 05/05/23 01:39 Room Air Laboratory Results Cardiac Enzymes 05/04/23 05/04/23 05/05/23 Range/Units 16:30 19:32 03:54 AST 31 (13-39) U/L Troponin I High Sens 29.2 H 8.9 D 88.0 H* D (0-14) pg/ml 05/05/23 Range/Units 08:38 AST (13-39) U/L Troponin I High Sens 53.2 H* D (0-14) pg/ml Coagulation 05/05/23 Range/Units 03:54 APTT 30 (21-31) Seconds CBC 05/04/23 05/05/23 Range/Units 16:30 03:54 WBC 11.64 H 8.48 (4.8-10.8) K/ul RBC 4.28 3.63 L (4.20-5.40) M/uL Hgb 10.3 L 8.5 L (12.0-16.0) g/dl Hct 32.9 L 27.9 L (37.0-47.0) % Plt Count 266 209 (130-400) K/uL Neut # (Auto) 10.59 H 6.39 (1.40-6.50) K/uL Lymph # (Auto) 0.50 L 1.42 (1.20-3.40) K/uL [place] # (Auto) 0.46 0.58 (0.11-0.59) K/uL Eos # (Auto) 0.00 0.01 (0.00-0.50) K/uL Baso # (Auto) 0.02 0.02 (0.00-0.20) K/uL Comprehensive Metabolic Panel 05/04/23 05/05/23 05/05/23 Range/Units 16:30 00:23 03:54 Sodium 130 L 135 L (136-145) mmol/L Potassium 4.1 3.8 (3.5-5.1) mmol/L Chloride 98 107 (98-107) mmol/L Carbon Dioxide 22 20 L (21-32) mmol/L BUN 11 11 (6-23) mg/dl Creatinine 1.08 1.01 (0.6-1.2) mg/dl Glucose 682 H* 394 H* 236 H (70-99(Fasting)) mg/dl Calcium 9.1 7.8 L (8.6-10.3) mg/dl AST 31 (13-39) U/L ALT 25 (7-52) U/L Alkaline Phosphatase 134 H (34-104) U/L Total Protein 7.0 (6.0-8.3) gm/dl Albumin 3.2 L (3.4-5.0) gm/dl Intake and Output 05/04/23 05/05/23 05/05/23 22:59 06:59 14:59 Intake Total 2599.4 / 4026.067 1426.667 / 4026.067 1300 / 1300 Output Total Balance 2599.4 / 4025.067 1425.667 / 4025.067 1300 / 1300 Intake: IV 2599.4 / 4026.067 1426.667 / 4026.067 1300 / 1300 Albumin 25% 25 gm In 100 ml @ 100 / 100 50 mls/hr IV ONE ONE Rx#: [id number] Magnesium Sulfate / D5w 1 gm In 200 / 200 100 ml @ 50 mls/hr IV Q2H [facility] Rx#:[id number] Sodium Chloride 0.9% 1,000 ml @ 2599.4 / 3476.067 876.667 / 3476.067 1000 / 1000 200 mls/hr IV .Q5H [facility] Rx#: [id number] Sodium Chloride 0.9% 500 ml @ 500 / 500 500 mls/hr IV .Q1H [facility] Rx#: [id number] cefTRIAXone SODIUM 50 ml @ 100 50 / 50 mls/hr IV NOW [facility] Rx#:[id number] Output: # Bowel Movements Other: # Unmeasured Voids 1 Weight 86.9 kg 86.9 kg Weight Measurement Method Chair Scale Built in [facility] Hemoglobin on presentation was 10.3 yesterday and is 8.5 today, with noted hemoglobin level 13.5 on 03/07/2020 MCV 76.9 Initial glucose 682, and is trended down to 236 Hemoglobin A1c 10.9% Insulin level 1.4 Iron less than 10 mcg/dL Diagnostic Findings EKG performed 05/04/2023 at 1723 and interpreted independently: Sinus rhythm at 96 bpm with poor R wave progression in the precordial leads. Nonspecific T wave flattening in the precordial leads. -Patient has since had serial repeat tracings revealing atrial fibrillation, most recent of which took place this morning with atrial fibrillation at 95 bpm. Echocardiogram performed earlier today interpreted independently: Atrial fibrillation with mildly elevated ventricular rate in the range of 100 to 110 bpm present during echocardiogram Borderline concentric left ventricular hypertrophy is present No regional wall motion abnormalities noted LVEF in the range of 55 to 60% The left atrial size is normal Trace mitral regurgitation is present, Doppler findings do not suggest pulmonary hypertension No prior studies available for comparison (3) Anemia Anemia type: unspecified type Qualified Code(s): D64.9 - Anemia, unspecified
[2023-05-05] MEDS ORDERED: DIGOXIN 250 MCG in SYRINGE 9 ML IV ONE ×2 (14:00→20:00)
[2023-05-05] MEDS ORDERED: traMADol HCL 50 MG TABLET PO STA (18:46)
[2023-05-05] MEDS: ACETAMINOPHEN 500 MG TAB PO SCH (19:40)
[2023-05-05] MEDS: METOPROLOL TARTRATE 25 MG TAB PO SCH ×2 (20:18→22:15)
[2023-05-05] MEDS ORDERED: LANTUS PER UNIT CHARGE SQ SCH ×2 (21:00)
[2023-05-05] MEDS ORDERED: LANTUS PER UNIT CHARGE SC ONE (21:45)
[2023-05-05] MEDS: CITALOPRAM 20 MG TAB PO SCH (21:46)
[2023-05-05] MEDS: cefTRIAXone SODIUM 2,000 MG in DEXTROSE 5 % MINI-B 50 ML IV SCH (23:14)
[2023-05-06] MEDS: ACETAMINOPHEN 325 MG TAB PO PRN (01:53)
[2023-05-06] MEDS: METOPROLOL TARTRATE 25 MG TAB PO SCH ×5 (02:53→21:22)
[2023-05-06] MEDS: SODIUM CHLORIDE 0.9% 1,000 ML IV SCH ×4 (02:54→22:55)
[2023-05-06] MEDS: HEPARIN SODIUM/DEXTROSE 25,000 UNITS/500 ML BAG IV SCH (02:54)
[2023-05-06] MEDS: CARBOHYDRATES FOR HYPOGLYCEMIA PO PRN (03:05)
[2023-05-06] MEDS: INSULIN ASPART PER UNIT CHARGE SC SCH ×5 (03:06→21:43)
[2023-05-06] MEDS ORDERED: DEXTROSE 50% 50 ML SYRINGE IV STA (03:18)
[2023-05-06] MEDS ORDERED: STAT IV Infusion **Titration per Protocol STA (03:23)
[2023-05-06] MEDS ORDERED: dilTIAZem HCl 5 MG/ML 5 ML VIAL IV STA (03:23)
[2023-05-06] MEDS ORDERED: dilTIAZem HCL 125 MG in DEXTROSE 5% 100 ML IV SCH (03:30)
[2023-05-06] MEDS: ACETAMINOPHEN 500 MG TAB PO SCH ×3 (05:08→21:20)
[2023-05-06 07:47] LABS: Hematocrit (blood only) 25.1 % (37.0-47.0); Mean Corpuscular Hemoglobin 23.7 pg (25.0-34.0); Mean Corpuscular Hgb Conc 31.9 g/dL (32.0-36.0); Mean Corpuscular Volume 74.3 fL (80.0-100.0); Mean Platelet Volume 10.9 fL (9.4-12.4); Platelet Count 230 K/uL (130-400); RDW Coefficient of Variation 17.9 % (11.5-14.5); Red Blood Count 3.38 M/uL (4.20-5.40); White Blood Count 9.26 K/ul (4.8-10.8)
--- NOTE | 2023-05-06 07:49 | Hospitalist Progress Note ---
Date of Service May 06, 2023 Assessment & Plan (1) Acute hyperglycemia: Plan: 57 yo F with type 2 diabetes, hyperlipidemia, extrinsic asthma, GERD, melanoma of right lower leg, history of iron deficiency, history of thrombocytopenia, history of depression, generalized anxiety disorder presents with ongoing nausea and shortness of breath for a week but lately she has been having lot of chills and bodyaches which prompted her to come to the ER. Hyperglycemia History of diabetes current A1c 10.9% On presentation sugar 682 Not in DKA Received IV insulin 10 units in the ER Cont. home Lantus 30 units Insulin sliding scale Hold metformin cont. IV fluids normal saline Closely monitor the blood sugars Glycemic pharmacy consulted COVID Saturating 97% on RA COVID precautions Closely monitor Rapid A-fib Improved initially with IV Lopressor Started on IV heparin cardiac enzymes trended and echo obtained Echo -A-fib with mildly elevated ventricular rate in the range of 100s to 110s bpm present during echocardiogram exam. There is borderline concentric LVH. No regional wall motion abnormalities noted. LVEF 55 to 60%. Left atrial size is normal. There is trace mitral regurg. Doppler findings do not suggest pulmonary hypertension. There is no prior study available for comparison. Cardiology consulted - cont. metoprolol 12.5 mg QID , Transition to Eliquis this evening UTI Rocephin U cultx posit. for E.coli Hyperlipidemia On statin Anemia History of iron deficiency Hemoglobin 10.3 Will follow stool for Hemoccult's Follow hemoglobin while on IV heparin Iron studies, iron level low Vitamin B12 level normal folate level pending fobt pending Follow labs Mild elevation of troponin Initial troponin 29 trended enzymes and obtained echo as above Depression On citalopram Hypertension On lisinopril - hold for now DVT prophylaxis IV heparin.-> transition to eliquis. Follow Hemoccult studies Disposition Telemetry Admission and Anticipated Discharge Date Admission Date: May 04, 2023 Subjective Pt seen in follow up of + covid 19, Rapid Afib, hyperglycemia (uncontrolled DM), poss. UTI Currently sitting up in bed in NAD Denies having any chest pain or palpitations. No shortness of breath. Goes from afib to sr and back. Review of Systems Review of Systems: All systems reviewed & are unremarkable except as noted in Subjective Physical Exam Physical Exam: General- WD/WN F in NAD, on RA Head- atraumatic Eyes- PERRL. Neck- supple, no JVD. Lungs- clear to auscultation no wheezing or crackles. Heart- irregular, tachycardic; no murmur, no gallop. Abdomen- normal bowel sounds, soft, nontender, no distension Extremities- no pretibial edema, no erythema seen Neuro- alert, oriented x 3; PERRL, no facial palsy; no dysarthria; moves extremities. Skin- warm & dry Results & Data Results & Data Vital Signs (Past 12 Hours) Vital Signs Temp Pulse Pulse Resp BP Pulse Ox Pulse Ox 05/06/23 07:34 37.2 C 109 H 18 106/72 96 05/06/23 02:49 37.3 C 108 H 16 111/75 95 05/06/23 02:00 95 05/05/23 23:55 92 H 05/05/23 21:54 99 H 91/52 L O2 Del Method O2 Del Method 05/06/23 07:34 Room Air 05/06/23 02:49 Room Air 05/06/23 02:00 Room Air 05/05/23 23:55 05/05/23 21:54
[2023-05-06 08:07] LABS: BUN Creatinine Ratio 13.2 (10-20); Calcium 7.7 mg/dl (8.6-10.3); Est GFR (African American) 99.5 ml/min; Est GFR (Non-African American) 85.9 ml/min; Magnesium 1.7 mg/dl (1.7-2.4); Phosphorus 1.7 mg/dl (2.5-4.9); Potassium 3.4 mmol/L (3.5-5.1)
[2023-05-06 08:29] LABS: ANTI-Xa, UFH(UnfractionatedHep 0.23 IU/ml (0.3-0.7)
[2023-05-06] MEDS ORDERED: LANTUS PER UNIT CHARGE SQ SCH (09:00)
[2023-05-06] MEDS: MAGNESIUM OXIDE 400 MG TAB PO SCH ×2 (09:39→21:22)
[2023-05-06] MEDS: CYANOCOBALAMIN (B-12) 500 MCG TABLET PO SCH (09:39)
[2023-05-06] MEDS: ROSUVASTATIN CALCIUM 5 MG TAB PO SCH (09:39)
[2023-05-06] MEDS ORDERED: POTASSIUM CHLORIDE CRTAB 20 MEQ TABCR PO STA (09:49)
--- NOTE | 2023-05-06 10:39 | Pharmacy Report ---
Pharmacy Glycemic Short Note 2 - Date of Service May 06, 2023 - Glycemic Short BSG Results (Last 24 hours): 05/05/23 05/05/23 05/05/23 11:02 16:34 19:52 Glucose POC Glucose 233 H 125 H 87 05/05/23 05/06/23 05/06/23 23:16 02:59 03:02 Glucose POC Glucose 116 H 69 L* 61 L* 05/06/23 05/06/23 05/06/23 03:21 03:41 07:05 Glucose 96 POC Glucose 68 L* 158 H 05/06/23 07:37 Glucose POC Glucose 85 OUTPATIENT ANTIDIABETIC REGIMEN: * Lantus 30 units SC HS * Humalog SS * Metformin 1 gm PO BID * Ozempic 1mg SQ weekly HbA1c = 10.7% ASSESSMENT: * 57 y/o F admitted for Covid and hyperglycemia evening of 05/04/23. * Patient received basal dose of 30 units on 05/04 evening and 20 units yesterday AM. Novolog started based on wt/stress of 3. * BSG dropped to 61 mg/dl overnight yesterday from basal doses. She received total of 30 units yesterday. Will hold off on basal insulin in the morning and resume at HS on a scale. PLAN FOR INPATIENT GLYCEMIC CONTROL: * Hold outpatient oral diabetes medications * Basal insulin * Lantus 10-30 units SQ HS based on BSG * Bolus insulin * NovoLog per scale ACHS or Q6hrs while NPO * Goal Range: Low 110 mg/dL - High 140 mg/dL * Correction Factor: 20 mg/dL/unit * Nutritional / Prandial insulin per carb ratio of 1 unit per 7 grams CHO consumed
[2023-05-06] MEDS: guaiFENesin 600 MG TABCR PO SCH ×2 (11:10→21:25)
[2023-05-06] MEDS: traMADol HCL 50 MG TABLET PO PRN ×3 (12:52→21:48)
--- NOTE | 2023-05-06 13:05 | Cardiology Progress Note ---
Date of Service May 06, 2023 Assessment & Plan (1) Paroxysmal atrial fibrillation: (2) COVID-19: (3) Anemia: (4) Acute hyperglycemia: Plan 57 year old female (1) Paroxysmal atrial fibrillation: Telemetry, converted back to sinus rhythm on 05/05/2023 at 1758. She reverted back to atrial fibrillation however on 05/06/2023 at 2:13 AM, and then converted to sinus rhythm again on 05/06/2023 at 11:29 AM Was in sinus rhythm at the time my assessment. She does not seem to have a subjective awareness of when she is in or out of atrial fibrillation. Continue with Toprol tartrate 12.5 mg 4 times daily with hold for heart rate less than 60, systolic blood pressure less than 90 mmHg. Hemoglobin stable at 8 today. Transition from heparin to Eliquis 05/06/2023 at 2100. Replace potassium for levels of 3.4 mmol/l. (2) COVID-19: Pulse oximetry is 97% on room air. No indication for remdesivir. Continue supportive care. Change acetaminophen order to 1000 mg 4 times daily for maximum dose of 4000 mg in 24 hours. Patient's liver function test within normal limits at time of admission 05/04/2023. (3) Anemia: Patient with noted microcytic anemia, with iron deficiency. She denies any hematuria or blood per rectum at home. Denies any gross postmenopausal bleeding. Continue cautious anticoagulation. Iron replacement recommended. Will need outpatient anemia workup after acute illnesses resolved. (4) Acute hyperglycemia: Blood sugar trending toward improvement. Admission and Anticipated Discharge Date Admission Date: May 04, 2023 Subjective Patient seen in cardiology follow-up. She does not have any objective fever on her vital signs, she still generalized body aches. She states that the only thing that helps such symptoms as an outpatient was taking Tylenol [id number]. Send chest discomfort or subjective palpitations. Physical Exam Constitutional: WD/WN, vitals as above well developed Eyes: PERRL, conjunctivae normal, anicteric sclerae Neck: trachea midline, no thyromegaly Respiratory: normal respiratory effort; no respiratory distress and no labored breathing Cardiovascular: Rate/Rhythm: + tachycardic Vessels: no JVD Extremities: no edema Gastrointestinal (Abdomen): normal bowel sounds, soft, nontender, no hepatosplenomegaly Neurologic: PERRL, EOMI, accommodation nl, no face palsy, no dysarthria Results & Data Vital Signs (Past 12 Hours) Vital Signs Temp Pulse Resp BP Pulse Ox Pulse Ox O2 Del Method 05/06/23 11:37 36.9 C 87 23 126/87 96 Room Air 05/06/23 07:34 37.2 C 109 H 18 106/72 96 Room Air 05/06/23 02:49 37.3 C 108 H 16 111/75 95 Room Air 05/06/23 02:00 95 O2 Del Method 05/06/23 11:37 05/06/23 07:34 05/06/23 02:49 05/06/23 02:00 Room Air Laboratory Results Cardiac Enzymes 05/05/23 Range/Units 15:23 Troponin I High Sens 31.3 H D (0-14) pg/ml CBC 05/06/23 Range/Units 07:05 WBC 9.26 (4.8-10.8) K/ul RBC 3.38 L (4.20-5.40) M/uL Hgb 8.0 L (12.0-16.0) g/dl Hct 25.1 L (37.0-47.0) % Plt Count 230 (130-400) K/uL Comprehensive Metabolic Panel 05/06/23 Range/Units 07:05 Sodium 138 (136-145) mmol/L Potassium 3.4 L (3.5-5.1) mmol/L Chloride 110 H (98-107) mmol/L Carbon Dioxide 23 (21-32) mmol/L BUN 10 (6-23) mg/dl Creatinine 0.76 (0.6-1.2) mg/dl Glucose 96 (70-99(Fasting)) mg/dl Calcium 7.7 L (8.6-10.3) mg/dl Intake and Output 05/05/23 05/06/23 05/06/23 22:59 06:59 14:59 Intake Total 1000 / 4272.5 1622.5 / 4272.5 1139.583 / 1139.583 Balance 1000 / 4272.5 1622.5 / 4272.5 1139.583 / 1139.583 Intake: IV 1000 / 3622.5 1322.5 / 3622.5 1139.583 / 1139.583 Heparin Sodium/Dextrose 25,000 500 / 500 139.583 / 139.583 units In 500 ml @ 1,250 UNITS/ HR 25 mls/hr IV .Q20H [facility] Rx#: [id number] Sodium Chloride 0.9% 1,000 ml @ 1000 / 2772.5 772.5 / 2772.5 1000 / 1000 200 mls/hr IV .Q5H [facility] Rx#: [id number] cefTRIAXone SODIUM 2,000 mg In 50 / 50 Dextrose 5 % Mini-B 50 ml @ 100 mls/hr IV Q24H [facility] Rx#: [id number] Oral 300 / 650 Other: Other Intake Source Sips # Unmeasured Voids 2 2 Weight 89.3 kg Weight Measurement Method Built in [facility] (3) Anemia Anemia type: unspecified type Qualified Code(s): D64.9 - Anemia, unspecified
[2023-05-06 15:01] LABS: ANTI-Xa, UFH(UnfractionatedHep 0.28 IU/ml (0.3-0.7)
[2023-05-06] MEDS ORDERED: ACETAMINOPHEN 500 MG TAB PO SCH (17:00)
[2023-05-06] MEDS ORDERED: Nursing to Pharmacy Communication SCH (19:30)
--- NOTE | 2023-05-06 20:02 | Electrocardiogram Report ---
Test Reason : Blood Pressure : / mmHG Vent. Rate : 096 BPM Atrial Rate : 096 BPM P-R Int : 146 ms QRS Dur : 070 ms QT Int : 354 ms P-R-T Axes : 030 003 011 degrees QTc Int : 447 ms Normal sinus rhythm Low voltage QRS Cannot rule out Anterior infarct Nonspecific T wave abnormality Abnormal ECG When compared with ECG of 06-MAR-2020 17:21, Nonspecific T wave abnormality now evident in Anterior leads T wave amplitude has increased in Lateral leads Confirmed by Murali Ryan ([id number]) on 05/06/2023 8:01:53 PM Referred By: REFERRED SELF Confirmed By:Murali Ryan
--- NOTE | 2023-05-06 20:48 | Electrocardiogram Report ---
Test Reason : Blood Pressure : / mmHG Vent. Rate : 139 BPM Atrial Rate : 267 BPM P-R Int : 000 ms QRS Dur : 066 ms QT Int : 302 ms P-R-T Axes : 083 006 021 degrees QTc Int : 459 ms Atrial flutter with variable A-V block Cannot rule out Anterior infarct (cited on or before 04-MAY-2023) Nonspecific ST abnormality Abnormal ECG When compared with ECG of 04-MAY-2023 17:23, Atrial flutter has replaced Sinus rhythm Confirmed by Murali Ryan ([id number]) on 05/06/2023 8:48:03 PM Referred By: REFERRED SELF Confirmed By:Murali Ryan
--- NOTE | 2023-05-06 20:49 | Electrocardiogram Report ---
Test Reason : Blood Pressure : / mmHG Vent. Rate : 108 BPM Atrial Rate : 000 BPM P-R Int : 000 ms QRS Dur : 072 ms QT Int : 334 ms P-R-T Axes : 000 011 -15 degrees QTc Int : 447 ms Atrial fibrillation with rapid ventricular response Nonspecific T wave abnormality Abnormal ECG When compared with ECG of 05-MAY-2023 01:36, Atrial fibrillation has replaced Atrial flutter Confirmed by Murali Ryan ([id number]) on 05/06/2023 8:49:02 PM Referred By: REFERRED SELF Confirmed By:Murali Ryan
--- NOTE | 2023-05-06 20:50 | Electrocardiogram Report ---
Test Reason : Blood Pressure : / mmHG Vent. Rate : 085 BPM Atrial Rate : 085 BPM P-R Int : 162 ms QRS Dur : 074 ms QT Int : 350 ms P-R-T Axes : 038 015 002 degrees QTc Int : 416 ms Sinus rhythm with Premature atrial complexes Otherwise normal ECG When compared with ECG of 05-MAY-2023 02:21, Sinus rhythm has replaced Atrial fibrillation Confirmed by Murali Ryan ([id number]) on 05/06/2023 8:49:23 PM Referred By: REFERRED SELF Confirmed By:Murali Ryan
--- NOTE | 2023-05-06 20:53 | Electrocardiogram Report ---
Test Reason : Blood Pressure : / mmHG Vent. Rate : 104 BPM Atrial Rate : 000 BPM P-R Int : 000 ms QRS Dur : 078 ms QT Int : 368 ms P-R-T Axes : 000 025 000 degrees QTc Int : 483 ms Atrial fibrillation with rapid ventricular response Low voltage QRS Abnormal ECG When compared with ECG of 05-MAY-2023 02:26, Atrial fibrillation has replaced Sinus rhythm QT has lengthened Confirmed by Murali Ryan ([id number]) on 05/06/2023 8:53:20 PM Referred By: REFERRED SELF Confirmed By:Murali Ryan
--- NOTE | 2023-05-06 20:55 | Electrocardiogram Report ---
Test Reason : Blood Pressure : / mmHG Vent. Rate : 092 BPM Atrial Rate : 092 BPM P-R Int : 156 ms QRS Dur : 072 ms QT Int : 364 ms P-R-T Axes : 047 036 030 degrees QTc Int : 450 ms Normal sinus rhythm Normal ECG When compared with ECG of 05-MAY-2023 08:08, Sinus rhythm has replaced Atrial fibrillation Confirmed by Murali Ryan ([id number]) on 05/06/2023 8:55:33 PM Referred By: REFERRED SELF Confirmed By:Murali Ryan
--- NOTE | 2023-05-06 20:55 | Electrocardiogram Report ---
Test Reason : Blood Pressure : / mmHG Vent. Rate : 095 BPM Atrial Rate : 000 BPM P-R Int : 000 ms QRS Dur : 074 ms QT Int : 368 ms P-R-T Axes : 000 032 012 degrees QTc Int : 462 ms Atrial fibrillation Low voltage QRS Abnormal ECG When compared with ECG of 05-MAY-2023 07:27, No significant change was found Confirmed by Murali Ryan ([id number]) on 05/06/2023 8:55:24 PM Referred By: REFERRED SELF Confirmed By:Murali Ryan
[2023-05-06] MEDS: CITALOPRAM 20 MG TAB PO SCH (21:23)
[2023-05-06] MEDS: APIXABAN 5 MG TABLET PO SCH (21:24)
[2023-05-06] MEDS: LANTUS PER UNIT CHARGE SC SCH (21:43)
[2023-05-06 22:24] LABS: ANTI-Xa, UFH(UnfractionatedHep 0.33 IU/ml (0.3-0.7)
[2023-05-06] MEDS: cefTRIAXone SODIUM 2,000 MG in DEXTROSE 5 % MINI-B 50 ML IV SCH (22:54)
[2023-05-07] MEDS: ACETAMINOPHEN 500 MG TAB PO SCH ×3 (06:00→21:40)
[2023-05-07] MEDS: HEPARIN SODIUM/DEXTROSE 25,000 UNITS/500 ML BAG IV SCH (07:18)
[2023-05-07] MEDS: SODIUM CHLORIDE 0.9% 1,000 ML IV SCH ×2 (07:19→12:14)
[2023-05-07 08:36] LABS: Hematocrit (blood only) 28.5 % (37.0-47.0); Hemoglobin 8.6 g/dl (12.0-16.0); Mean Corpuscular Hemoglobin 23.2 pg (25.0-34.0); Mean Corpuscular Hgb Conc 30.2 g/dL (32.0-36.0); Mean Corpuscular Volume 76.8 fL (80.0-100.0); Mean Platelet Volume 10.5 fL (9.4-12.4); Platelet Count 298 K/uL (130-400); RDW Coefficient of Variation 18.2 % (11.5-14.5); RDW Standard Deviation 50.4 fL (36.4-46.3); Red Blood Count 3.71 M/uL (4.20-5.40); White Blood Count 6.89 K/ul (4.8-10.8)
[2023-05-07] MEDS: INSULIN ASPART PER UNIT CHARGE SC SCH ×5 (08:45→21:24)
[2023-05-07 08:52] LABS: BUN Creatinine Ratio 8.3 (10-20); Calcium 8.1 mg/dl (8.6-10.3); Creatinine Clr Calc Pharmacy 92.4 ml/min; Est GFR (African American) 106.2 ml/min; Est GFR (Non-African American) 91.7 ml/min; Magnesium 1.6 mg/dl (1.7-2.4)
[2023-05-07] MEDS: APIXABAN 5 MG TABLET PO SCH ×2 (09:12→21:39)
[2023-05-07] MEDS: guaiFENesin 600 MG TABCR PO SCH ×2 (09:12→21:37)
[2023-05-07] MEDS: CYANOCOBALAMIN (B-12) 500 MCG TABLET PO SCH (09:12)
[2023-05-07] MEDS: MAGNESIUM OXIDE 400 MG TAB PO SCH ×2 (09:13→21:39)
[2023-05-07] MEDS: ROSUVASTATIN CALCIUM 5 MG TAB PO SCH (09:13)
[2023-05-07] MEDS: METOPROLOL TARTRATE 25 MG TAB PO SCH ×3 (09:13→17:08)
[2023-05-07] MEDS: traMADol HCL 50 MG TABLET PO PRN ×2 (09:14→21:35)
--- NOTE | 2023-05-07 11:26 | Hospitalist Progress Note ---
Date of Service May 07, 2023 Assessment & Plan (1) Acute hyperglycemia: Plan: 57 yo F with type 2 diabetes, hyperlipidemia, extrinsic asthma, GERD, melanoma of right lower leg, history of iron deficiency, history of thrombocytopenia, history of depression, generalized anxiety disorder presents with ongoing nausea and shortness of breath for a week but lately she has been having lot of chills and bodyaches which prompted her to come to the ER. Hyperglycemia History of diabetes current A1c 10.9% On presentation sugar 682 Not in DKA Received IV insulin 10 units in the ER Cont. home Lantus 30 units Insulin sliding scale Hold metformin received IV fluids normal saline Closely monitor the blood sugars Glycemic pharmacy consulted COVID + cough Saturating 97% on RA COVID precautions cont. mucinex, supportive care Closely monitor Rapid A-fib Improved initially with IV Lopressor Started on IV heparin cardiac enzymes trended and echo obtained Echo -A-fib with mildly elevated ventricular rate in the range of 100s to 110s bpm present during echocardiogram exam. There is borderline concentric LVH. No regional wall motion abnormalities noted. LVEF 55 to 60%. Left atrial size is normal. There is trace mitral regurg. Doppler findings do not suggest pulmonary hypertension. There is no prior study available for comparison. Cardiology consulted - switch metoprolol 12.5 mg QID to succinate 25 bid , Transitioned to Eliquis last evening UTI Rocephin -> switch to cefuroxime U cultx posit. for E.coli Hyperlipidemia On statin Anemia History of iron deficiency Hemoglobin 8.6, stable Will follow stool for Hemoccult's Follow hemoglobin while on IV heparin Iron studies, iron level low Vitamin B12 level normal folate level pending fobt pending recommend iron supplement Follow labs Mild elevation of troponin Initial troponin 29 trended enzymes and obtained echo as above Depression On citalopram Hypertension On lisinopril - hold for now DVT prophylaxis eliquis. Follow Hemoccult studies Disposition Telemetry Admission and Anticipated Discharge Date Admission Date: May 04, 2023 Subjective Pt seen in follow up of + covid 19, Rapid Afib, hyperglycemia (uncontrolled DM), poss. UTI Currently sitting up in bed in NAD Denies having any chest pain or palpitations. No shortness of breath. Goes from afib to sr and back. Currently in sinus rhythm. Review of Systems Review of Systems: All systems reviewed & are unremarkable except as noted in Subjective Physical Exam Physical Exam: General- WD/WN F in NAD, on RA Head- atraumatic Eyes- PERRL. Neck- supple, no JVD. Lungs- clear to auscultation no wheezing or crackles. Heart- rrr; no murmur, no gallop. Abdomen- normal bowel sounds, soft, nontender, no distension Extremities- no pretibial edema, no erythema seen Neuro- alert, oriented x 3; PERRL, no facial palsy; no dysarthria; moves extremities. Skin- warm & dry Results & Data Results & Data Vital Signs (Past 12 Hours) Vital Signs Temp Pulse Resp BP Pulse Ox O2 Del Method 05/07/23 07:35 37.0 C 91 H 19 101/69 97 Room Air 05/07/23 02:50 36.6 C 71 18 111/71 97 Room Air Laboratory Results 05/07/23 05/07/23 05/07/23 Range/Units 08:00 07:26 03:11 WBC 6.89 (4.8-10.8) K/ul RBC 3.71 L (4.20-5.40) M/uL Hgb 8.6 L (12.0-16.0) g/dl Hct 28.5 L (37.0-47.0) % MCV 76.8 L (80.0-100.0) fL MCH 23.2 L (25.0-34.0) pg MCHC 30.2 L (32.0-36.0) g/dL RDW Std Deviation 50.4 H (36.4-46.3) fL RDW Coeff of Maribel 18.2 H (11.5-14.5) % Plt Count 298 (130-400) K/uL MPV 10.5 (9.4-12.4) fL Heparin Anti-Xa, Unfract (0.3-0.7) IU/ml Sodium 136 (136-145) mmol/L Potassium 4.0 (3.5-5.1) mmol/L Chloride 109 H (98-107) mmol/L Carbon Dioxide 23 (21-32) mmol/L Anion Gap 4 (3-11) BUN 6 (6-23) mg/dl Creatinine 0.72 (0.6-1.2) mg/dl Est Cr Clr Drug Dosing 92.4 ml/min Est GFR ( Amer) 106.2 ml/min Est GFR (Non-Af Amer) 91.7 ml/min BUN/Creatinine Ratio 8.3 L (10-20) Glucose 159 H (70-99(Fasting)) mg/dl POC Glucose 176 H 92 (70-99) mg/dl Calcium 8.1 L (8.6-10.3) mg/dl Phosphorus 2.0 L (2.5-4.9) mg/dl Magnesium 1.6 L (1.7-2.4) mg/dl 05/07/23 05/07/23 05/06/23 Range/Units 02:53 02:52 21:22 WBC (4.8-10.8) K/ul RBC (4.20-5.40) M/uL Hgb (12.0-16.0) g/dl Hct (37.0-47.0) % MCV (80.0-100.0) fL MCH (25.0-34.0) pg MCHC (32.0-36.0) g/dL RDW Std Deviation (36.4-46.3) fL RDW Coeff of Maribel (11.5-14.5) % Plt Count (130-400) K/uL MPV (9.4-12.4) fL Heparin Anti-Xa, Unfract 0.33 (0.3-0.7) IU/ml Sodium (136-145) mmol/L Potassium (3.5-5.1) mmol/L Chloride (98-107) mmol/L Carbon Dioxide (21-32) mmol/L Anion Gap (3-11) BUN (6-23) mg/dl Creatinine (0.6-1.2) mg/dl Est Cr Clr Drug Dosing ml/min Est GFR ( Amer) ml/min Est GFR (Non-Af Amer) ml/min BUN/Creatinine Ratio (10-20) Glucose (70-99(Fasting)) mg/dl POC Glucose 56 L* 57 L* (70-99) mg/dl Calcium (8.6-10.3) mg/dl Phosphorus (2.5-4.9) mg/dl Magnesium (1.7-2.4) mg/dl 05/06/23 05/06/23 05/06/23 Range/Units 20:07 16:38 14:24 WBC (4.8-10.8) K/ul RBC (4.20-5.40) M/uL Hgb (12.0-16.0) g/dl Hct (37.0-47.0) % MCV (80.0-100.0) fL MCH (25.0-34.0) pg MCHC (32.0-36.0) g/dL RDW Std Deviation (36.4-46.3) fL RDW Coeff of Maribel (11.5-14.5) % Plt Count (130-400) K/uL MPV (9.4-12.4) fL Heparin Anti-Xa, Unfract 0.28 L (0.3-0.7) IU/ml Sodium (136-145) mmol/L Potassium (3.5-5.1) mmol/L Chloride (98-107) mmol/L Carbon Dioxide (21-32) mmol/L Anion Gap (3-11) BUN (6-23) mg/dl Creatinine (0.6-1.2) mg/dl Est Cr Clr Drug Dosing ml/min Est GFR ( Amer) ml/min Est GFR (Non-Af Amer) ml/min BUN/Creatinine Ratio (10-20) Glucose (70-99(Fasting)) mg/dl POC Glucose 133 H 178 H (70-99) mg/dl Calcium (8.6-10.3) mg/dl Phosphorus (2.5-4.9) mg/dl Magnesium (1.7-2.4) mg/dl 05/06/23 Range/Units 11:36 WBC (4.8-10.8) K/ul RBC (4.20-5.40) M/uL Hgb (12.0-16.0) g/dl Hct (37.0-47.0) % MCV (80.0-100.0) fL MCH (25.0-34.0) pg MCHC (32.0-36.0) g/dL RDW Std Deviation (36.4-46.3) fL RDW Coeff of Maribel (11.5-14.5) % Plt Count (130-400) K/uL MPV (9.4-12.4) fL Heparin Anti-Xa, Unfract (0.3-0.7) IU/ml Sodium (136-145) mmol/L Potassium (3.5-5.1) mmol/L Chloride (98-107) mmol/L Carbon Dioxide (21-32) mmol/L Anion Gap (3-11) BUN (6-23) mg/dl Creatinine (0.6-1.2) mg/dl Est Cr Clr Drug Dosing ml/min Est GFR ( Amer) ml/min Est GFR (Non-Af Amer) ml/min BUN/Creatinine Ratio (10-20) Glucose (70-99(Fasting)) mg/dl POC Glucose 89 (70-99) mg/dl Calcium (8.6-10.3) mg/dl Phosphorus (2.5-4.9) mg/dl Magnesium (1.7-2.4) mg/dl Medications Administered Current Inpatient Medications Acetaminophen (Acetaminophen 500 Mg Tab) 1,000 mg PO Q8 KATHY Stop: 06/05/23 21:59 Last Admin: 05/07/23 06:00 Dose: 1,000 mg Apixaban (Apixaban 5 Mg Tablet) 5 mg PO BID KATHY Stop: 06/05/23 20:59 Last Admin: 05/07/23 09:12 Dose: 5 mg Citalopram Hydrobromide (Citalopram 20 Mg Tab) 10 mg PO HS KATHY Stop: 06/04/23 20:59 Last Admin: 05/06/23 21:23 Dose: 10 mg Cyanocobalamin (Cyanocobalamin (B-12) 500 Mcg Tablet) 500 mcg PO QAM KATHY Stop: 06/04/23 08:59 Last Admin: 05/07/23 09:12 Dose: 500 mcg Dextrose (Dextrose 50% 50 Ml Syringe) 25 - 50 ml IV UD PRN; Protocol PRN Reason: Hypoglycemia Protocol Stop: 06/04/23 00:28 Last Admin: 05/07/23 02:55 Dose: 25 ml Diphenhydramine HCl (Diphenhydramine Capsule 25 Mg Cap) 25 mg PO NOW ONE Stop: 05/07/23 11:25 Glucagon (Glucagon For Inj 1 Mg Vial) 1 mg SQ UD PRN; Protocol PRN Reason: Hypoglycemia Protocol Stop: 06/04/23 00:28 Glucose (Glucose 10 Tab/Tube) 4 - 8 tab PO UD PRN; Protocol PRN Reason: Hypoglycemia Treatment Stop: 06/04/23 00:28 Glucose (Glucose 40% Gel 15 Gm Tube) 15 - 30 gm PO UD PRN; Protocol PRN Reason: Hypoglycemia Protocol Stop: 06/04/23 00:28 Guaifenesin (Guaifenesin 600 Mg Tabcr) 600 mg PO Q12 [facility] Stop: 06/05/23 09:59 Last Admin: 05/07/23 09:12 Dose: 600 mg Ceftriaxone Sodium 2,000 mg/ (Dextrose) 50 mls @ 100 mls/hr IV Q24H [facility]; Protocol Stop: 05/14/23 22:59 Last Infusion: 05/06/23 23:24 Dose: Infused Sodium Chloride (Nss) 1,000 mls @ 150 mls/hr IV .Q6H40M [facility] Stop: 06/04/23 00:28 Last Admin: 05/07/23 07:19 Dose: 150 mls/hr Famotidine 20 mg/ Syringe 5 mls @ 2.5 mls/min IV BID [facility] Stop: 06/06/23 11:29 Insulin Aspart (Insulin Aspart Per Unit Charge) 0 units SC [facility] Stop: 06/04/23 03:29 Last Admin: 05/07/23 08:45 Dose: 6 units Insulin Glargine (Lantus Per Unit Charge) 0 units SC [facility]; Protocol Stop: 06/05/23 20:59 Last Admin: 05/06/23 21:43 Dose: 20 units Magnesium Oxide (Magnesium Oxide 400 Mg Tab) 400 mg PO BID [facility] Stop: 06/04/23 08:59 Last Admin: 05/07/23 09:13 Dose: 400 mg Metoprolol Tartrate (Metoprolol Tartrate 25 Mg Tab) 12.5 mg PO QID [facility] Stop: 06/04/23 16:59 Last Admin: 05/07/23 09:13 Dose: 12.5 mg Miscellaneous (Carbohydrates For Hypoglycemia ) 15 - 30 gm PO UD PRN PRN Reason: Hypoglycemia Protocol Stop: 06/04/23 00:28 Last Admin: 05/06/23 03:05 Dose: 15 gm Miscellaneous (Remove Lidoderm Patch) 1 each N/A DAILY@2100 [facility] Stop: 06/04/23 20:59 Last Admin: 05/06/23 21:44 Dose: Not Given Miscellaneous Information (Pharmacy Glycemic Mgmt Consult) 1 each N/A UD PRN PRN Reason: Consult Stop: 06/04/23 00:28 Nitroglycerin (Nitroglycerin Sl 0.4 Mg/Tab Tab) 0.4 mg SL Q5M PRN PRN Reason: Chest Pain Stop: 06/04/23 00:28 Ondansetron HCl (Ondansetron Inj 2 Mg/Ml 2 Ml Vial) 4 mg IV Q6H PRN PRN Reason: Nausea Stop: 06/04/23 00:28 Last Admin: 05/05/23 01:46 Dose: 4 mg Rosuvastatin Calcium (Rosuvastatin Calcium 5 Mg Tab) 5 mg PO QAM KATHY Stop: 06/04/23 08:59 Last Admin: 05/07/23 09:13 Dose: 5 mg Tramadol HCl (Tramadol Hcl 50 Mg Tablet) 25 mg PO Q4H PRN PRN Reason: Pain Stop: 06/05/23 11:29 Last Admin: 05/07/23 09:14 Dose: 25 mg
[2023-05-07] MEDS ORDERED: diphenhydrAMINE Capsule 25 MG CAP PO ONE (11:30)
[2023-05-07] MEDS ORDERED: FAMOTIDINE 20 MG in SYRINGE 3 ML IV SCH (11:30)
[2023-05-07] MEDS: CARBOHYDRATES FOR HYPOGLYCEMIA PO PRN (12:53)
[2023-05-07] MEDS ORDERED: diphenhydrAMINE Capsule 25 MG CAP PO PRN (13:09)
--- NOTE | 2023-05-07 13:23 | Pharmacy Report ---
Pharmacy Glycemic Short Note 2 - Date of Service May 07, 2023 - Glycemic Short BSG Results (Last 24 hours): 05/06/23 05/06/23 05/07/23 16:38 20:07 02:52 Glucose POC Glucose 178 H 133 H 57 L* 05/07/23 05/07/23 05/07/23 02:53 03:11 07:26 Glucose POC Glucose 56 L* 92 176 H 05/07/23 05/07/23 05/07/23 08:00 11:24 12:46 Glucose 159 H POC Glucose 86 69 L* 05/07/23 13:09 Glucose POC Glucose 84 OUTPATIENT ANTIDIABETIC REGIMEN: * Lantus 30 units SC HS * Humalog SS * Metformin 1 gm PO BID * Ozempic 1mg SQ weekly HbA1c = 10.7% (05/05/23) ASSESSMENT: 05/07/23: * BSGs labile yesterday, ranging 56-178 mg/dL * Patient received 26 units of insulin (20 units of basal and 6 units of prandial/correctional bolus) * Will loosen Novolog parameters today and decrease basal insulin scale * Heparin gtt (mixed in dextrose now discontinued) * Ceftriaxone changed to cefuroxime 05/06/23: * 57 y/o F admitted for Covid and hyperglycemia evening of 05/04/23. * Patient received basal dose of 30 units on 05/04 evening and 20 units yesterday AM. Novolog started based on wt/stress of 3. * BSG dropped to 61 mg/dl overnight yesterday from basal doses. She received total of 30 units yesterday. Will hold off on basal insulin in the morning and resume at HS on a scale. PLAN FOR INPATIENT GLYCEMIC CONTROL: * Hold outpatient oral diabetes medications * Basal insulin * Lantus 0-20 units SQ HS based on BSG (see EHR for details) * Bolus insulin * NovoLog per scale ACHS or Q6hrs while NPO * Goal Range: Low 110 mg/dL - High 140 mg/dL * Correction Factor: 30 mg/dL/unit * Nutritional / Prandial insulin per carb ratio of 1 unit per 10 grams CHO consumed
--- NOTE | 2023-05-07 17:04 | Cardiology Progress Note ---
Date of Service May 07, 2023 Assessment & Plan (1) Paroxysmal atrial fibrillation: (2) COVID-19: (3) Anemia: (4) Acute hyperglycemia: Plan 57 year old female (1) Paroxysmal atrial fibrillation: Changed Metropol tartrate to metoprolol succinate 25 mg twice daily next dose due at 2100 on 05/07/2023. Patient is tolerating Eliquis well. Hemoglobin stable. (2) COVID-19: Continue supportive care, antipyretic therapy. (3) Anemia: Patient with noted microcytic anemia, with iron deficiency. She denies any hematuria or blood per rectum at home. Denies any gross postmenopausal bleeding. Continue cautious anticoagulation. Iron replacement recommended. Will need outpatient anemia workup after acute illnesses resolved. (4) Acute hyperglycemia: Blood sugar trending toward improvement. Admission and Anticipated Discharge Date Admission Date: May 04, 2023 Subjective Mrs Rowley is seen in cardiology follow-up of atrial fibrillation. Yesterday she had converted back to sinus rhythm at 11:29 AM, she had however in the meantime reverted back to atrial fibrillation and then to sinus rhythm again converting to sinus rhythm on 05/07/2023 at 1527. Currently she is in sinus rhythm in the 70s. She notes ongoing generalized aches and pains. She is afebrile on her vital signs. Aches and pains are controlled with Tylenol and Toradol. Physical Exam Constitutional: WD/WN, vitals as above well developed Eyes: PERRL, conjunctivae normal, anicteric sclerae Neck: trachea midline, no thyromegaly Respiratory: normal respiratory effort; no respiratory distress and no labored breathing Cardiovascular: Rate/Rhythm: + tachycardic Vessels: no JVD Extremities: no edema Gastrointestinal (Abdomen): normal bowel sounds, soft, nontender, no hepatosplenomegaly Neurologic: PERRL, EOMI, accommodation nl, no face palsy, no dysarthria Results & Data Vital Signs (Past 12 Hours) Vital Signs Temp Pulse Pulse Resp BP Pulse Ox O2 Del Method 05/07/23 16:44 36.8 C 77 20 96/65 L 97 Room Air 05/07/23 15:32 74 05/07/23 15:29 Room Air 05/07/23 11:39 36.7 C 85 19 107/74 98 Room Air 05/07/23 07:35 37.0 C 91 H 19 101/69 97 Room Air 05/07/23 07:32 89 Laboratory Results CBC 05/07/23 Range/Units 08:00 WBC 6.89 (4.8-10.8) K/ul RBC 3.71 L (4.20-5.40) M/uL Hgb 8.6 L (12.0-16.0) g/dl Hct 28.5 L (37.0-47.0) % Plt Count 298 (130-400) K/uL Comprehensive Metabolic Panel 05/07/23 Range/Units 08:00 Sodium 136 (136-145) mmol/L Potassium 4.0 (3.5-5.1) mmol/L Chloride 109 H (98-107) mmol/L Carbon Dioxide 23 (21-32) mmol/L BUN 6 (6-23) mg/dl Creatinine 0.72 (0.6-1.2) mg/dl Glucose 159 H (70-99(Fasting)) mg/dl Calcium 8.1 L (8.6-10.3) mg/dl (3) Anemia Anemia type: unspecified type Qualified Code(s): D64.9 - Anemia, unspecified
[2023-05-07] MEDS: LANTUS PER UNIT CHARGE SC SCH (21:24)
[2023-05-07] MEDS: CITALOPRAM 20 MG TAB PO SCH (21:37)
[2023-05-07] MEDS: cefUROXime axetil 250 MG TABLET PO SCH (21:38)
[2023-05-07] MEDS: METOPROLOL SUCC 25MG EXT REL TAB PO SCH (22:30)
[2023-05-08] MEDS: traMADol HCL 50 MG TABLET PO PRN (05:49)
[2023-05-08] MEDS: ACETAMINOPHEN 500 MG TAB PO SCH (05:50)
[2023-05-08 08:04] LABS: Hematocrit (blood only) 26.7 % (37.0-47.0); Hemoglobin 8.6 g/dl (12.0-16.0); Mean Corpuscular Hemoglobin 23.7 pg (25.0-34.0); Mean Corpuscular Hgb Conc 32.2 g/dL (32.0-36.0); Mean Corpuscular Volume 73.6 fL (80.0-100.0); Mean Platelet Volume 10.3 fL (9.4-12.4); Platelet Count 299 K/uL (130-400); RDW Coefficient of Variation 18.4 % (11.5-14.5); RDW Standard Deviation 48.8 fL (36.4-46.3); Red Blood Count 3.63 M/uL (4.20-5.40); White Blood Count 6.16 K/ul (4.8-10.8)
[2023-05-08 08:20] LABS: BUN Creatinine Ratio 8.7 (10-20); Calcium 8.2 mg/dl (8.6-10.3); Creatinine Clr Calc Pharmacy 96.5 ml/min; Est GFR (African American) 110.4 ml/min; Est GFR (Non-African American) 95.3 ml/min; Magnesium 1.5 mg/dl (1.7-2.4); Phosphorus 2.5 mg/dl (2.5-4.9); Potassium 3.9 mmol/L (3.5-5.1)
[2023-05-08] MEDS ORDERED: MAGNESIUM SULFATE / D5W 1 GM/100 ML BAG IV ONE (08:32)
--- NOTE | 2023-05-08 08:41 | Discharge Summary ---
Date of Service May 08, 2023 Admission HPI Per Admitting Provider 57-year-old female with past medical history significant for type 2 diabetes, hyperlipidemia, extrinsic asthma, GERD, melanoma of right lower leg, history of iron deficiency, history of thrombocytopenia, history of depression, generalized anxiety disorder presents with ongoing nausea and shortness of breath for a week but lately she has been having lot of chills and bodyaches which prompted her to come to the ER. Having nausea and vomiting. Thinks she has some fever today. No headache. Vision is okay. No runny nose. Has some cough. Denies any chest pain. No abdominal pain. States earlier had diarrhea. Micturating okay. Hemodynamics are stable. Past medical history. As mentioned above Past surgical history. Bilateral knee arthroplasty. Biopsy of lymph node. C- section x 2. Colonoscopy. Dental surgery. Knee arthroscopy bilaterally. Ligation of oviducts. Appendectomy. Excision of the malignant lesion in the right leg and trunk. Social history. . No smoking. Alcohol occasional. No drug use. Family history. Father had arthritis. Diabetes. Thrombocytopenia. Call cystectomy. Daughter has asthma. Maternal grandfather had CHF. Hypertension. Maternal grandmother had A-fib. Hypertension. Dementia. Stroke. Admission Exam Per Admitting Provider General-Not in distress Head- atraumatic Eyes- PERRL. ENT- oropharynx dry. Neck- supple, no JVD. Lungs- clear to auscultation no wheezing or crackles. Heart- regular rhythm; no murmur, no gallop. Abdomen- normal bowel sounds, soft, nontender, no distension Extremities- no pretibial edema, no erythema seen Neuro- alert, oriented x 3; PERRL, no facial palsy; no dysarthria; moves extremities. Skin- warm & dry Principal Diagnosis Atrial fibrillation w/ RVR + COVID 19 UTI Hyperglycemia Discharge Exam General- WD/WN F in NAD, on RA Head- atraumatic Eyes- PERRL. Neck- supple, no JVD. Lungs- clear to auscultation no wheezing or crackles. Heart- rrr; no murmur, no gallop. Abdomen- normal bowel sounds, soft, nontender, no distension Extremities- no pretibial edema, no erythema seen Neuro- alert, oriented x 3; PERRL, no facial palsy; no dysarthria; moves extremities. Skin- warm & dry Discharge Data Allergies Allergy/AdvReac Type Severity Reaction Status Date / Time codeine Allergy Severe HIVES,SOB Verified 03/06/20 20:01 adhesive Allergy Intermediate RED,ITCHY,H Verified 03/06/20 20:01 BINA Sulfa (Sulfonamide Allergy Intermediate "SULFA Verified 03/06/20 20:01 Antibiotics) DRUGS": RASH AND HIVES salicylates Allergy Unknown PT Verified 03/06/20 20:01 STORAGE POLE DISEASE empagliflozin AdvReac Intermediate poss Verified 03/06/20 23:05 [From Jardiance] euglycemic dka morphine AdvReac Intermediate EXTREME Verified 03/06/20 20:01 NAUSEA AND VOMITING Consultations 05/04/23 20:03 ED Decision to Admit Stat 05/05/23 08:00 Consult Cardiology Routine Diabetes Follow up Diabetes Follow-up Needed for HgbA1c >9% Hospital Course (1) Acute hyperglycemia: 57 yo F with type 2 diabetes, hyperlipidemia, extrinsic asthma, GERD, melanoma of right lower leg, history of iron deficiency, history of thrombocytopenia, history of depression, generalized anxiety disorder presents with ongoing nausea and shortness of breath for a week but lately she has been having lot of chills and bodyaches which prompted her to come to the ER. Hyperglycemia History of diabetes current A1c 10.9% On presentation sugar 682 Not in DKA Received IV insulin 10 units in the ER Cont. home Lantus 30 units Insulin sliding scale Hold metformin received IV fluids normal saline Closely monitor the blood sugars Glycemic pharmacy consulted COVID + cough Saturating 97% on RA COVID precautions cont. mucinex, supportive care Closely monitor Rapid A-fib Improved initially with IV Lopressor Started on IV heparin cardiac enzymes trended and echo obtained Echo -A-fib with mildly elevated ventricular rate in the range of 100s to 110s bpm present during echocardiogram exam. There is borderline concentric LVH. No regional wall motion abnormalities noted. LVEF 55 to 60%. Left atrial size is normal. There is trace mitral regurg. Doppler findings do not suggest pulmonary hypertension. There is no prior study available for comparison. Cardiology consulted - cont. metoprolol succinate 25 bid , Eliquis UTI U cultx posit. for E.coli finished abx treatment w/ rocephin and cefuroxime Hyperlipidemia On statin Anemia History of iron deficiency Hemoglobin 8.6, stable Will follow stool for Hemoccult's Follow hemoglobin while on IV heparin Iron studies, iron level low Vitamin B12 level normal folate level 738 nl fobt pending recommend iron supplement - pt plans to obtain over the counter Follow labs Mild elevation of troponin Initial troponin 29 trended enzymes and obtained echo as above Depression On citalopram Hypertension On lisinopril - hold for now Total Time Total Time Spent Total Time Spent (In Minutes): 40 Discharge Plan Discharge Items Patient Disposition: Home - Self-Care Reason For Visit: SOB, HYPERGLYCEMIA, COVID Discharge Diagnosis: Atrial fibrillation w/ RVR + COVID 19 UTI Hyperglycemia Activity: Per Instructions section Non-emergency contact: Primary Care Provider and Light Technician Call non-emergency contact if: you have any medication questions and your symptoms worsen Follow-up/Referrals: Mathew Pagan DO [Light Technician] - (The Cardiology office will contact you for a follow up appointment.) Yoselin Morgan MD [Outside Practitioners] - (Date & Time 05/15/2023 2:00 [facility] ) Diet: Carb Consistent or DM2 and Heart Healthy Addtl Attending Provider Instructions: Follow up with your primary care physician and manager transfusion. You were started on metoprolol (for heart rate) and eliquis (blood thinner). Do not take lisinopril for now, until seen by primary care physician, and your blood pressure is re-checked. Your hemoglobin A1c is elevated at 10.9% - it is important that you closely follow up with your primary care physician to control your diabetes. Recommend taking iron supplement and follow up with primary care physician regarding your anemia. Addtl Sheet Finisher Provider Instructions: Coronavirus disease 2019 (COVID-19) is a virus that causes a respiratory illness. It is caused by a coronavirus called 2019 novel coronavirus (2019- nCoV). There are many types of coronavirus. Coronaviruses are a very common cause of bronchitis. They may sometimes cause lung infection(pneumonia). Symptoms can range from mild to severe respiratory illness. These viruses are also foundin some animals. COVID-19 was first found in people in [facility], in late 2019. In 2020, several cases of COVID-19 have been confirmed in the [place] Public health officials are working to find the source. How the virus spreads is not yet fully known. It may be spread through droplets of fluid that a person coughs or sneezes into the air. It may be spread if you touch a surface with virus on it, such as a handle or object, and then touch your mouth. What are the symptoms of COVID-19? Some people have no symptoms or mild symptoms. Symptoms may appear 2 to 14 days after contact with the virus. Symptoms can include: Fever Coughing Trouble breathing What are possible complications from COVID-19? In many cases, this virus can cause infection (pneumonia) in both lungs. In some cases, this can cause . How is COVID-19 diagnosed? Your healthcare provider will ask about your symptoms. He or she will also ask about your recent travel and contact with sick people. Testing for the virus is only done through the [facility]. If yourhealthcare provider thinks you may have COVID- 19, he or she will work with your local health department and the CDC on testing. Follow all instructions from your healthcare provider. COVID-19 is diagnosed by: Nasal and throat swab. A cotton-tipped swab is wiped inside your nose or throat. This is done to check for viruses in your nasal mucus. Sputum culture. A small sample of mucus coughed from your lungs (sputum) is collected if you have a cough. It is checked for the virus. How is COVID-19 treated? There is currently no medicine to treat the virus. Treatment is done to help your body while it fights the virus. This is known as supportive care. Supportive care may include: Pain medicine. These include acetaminophen and ibuprofen. They are used to help ease pain and reduce fever. Bed rest. This helps your body fight the illness. For severe illness, you may need to stay in the hospital. Care during severe illness may include: IV (intravenous) fluids.These are given through a vein to help keep your body hydrated. Oxygen. Supplemental oxygen or ventilation with a breathing machine (ventilator) may be given. This is done to keep enough oxygen in your body. Are you at risk for COVID-19? If youve been to a place where people have been sick with this virus, you are at risk for infection. You are at risk if you: Recently traveled to an affected area Had contact with a sick person who recently traveled to this area Had contact with a person who was diagnosed with COVID-19 How can COVID-19 be prevented? There is no vaccine yet. The best prevention is to not have contact with the virus. The CDC advises that people should not travel to areas where there are COVID-19 outbreaks right now for any reason that is not urgent. To help prevent spreading the infection, wash your hands often, or use an alcohol-basedhand commercial intelligence manager. If you are in an area with COVID-19: Wash your hands often. Or use an alcohol-based hand commercial intelligence manager often. Only touch your eyes, nose, or mouth with clean hands. Dont have contact with people who are sick. Follow local instructions about being in public. For example, you may be told to not use public transport for a period of time. Stay away from markets that have live or animals. Wash your hands after touching any animals. Don't touch animals that may be sick. Dont share eating or drinking tools with sick people. Dont kiss someone who is sick. Clean surfaces often with disinfectant. If you were in an area with COVID-19 in the last 14 days: Call your healthcare provider. He or she can talk with local health staff to see what action may be needed. Follow all instructions from your provider. Take your temperature every morning and evening for at least 14 days. This is to check for fever. Keep a record of the readings. Keep watch for symptoms of the virus. Tell your provider right away if you have symptoms. If you were in an area with COVID-19 and have a fever or other symptoms: Dont panic. Keep in mind that other illnesses can cause similar symptoms. Stay away from work, school, and public places. Limit physical contact with family members. Don't kiss anyone or share eating or drinking utensils. Clean surfaces you touch with disinfectant. This is to help prevent the virus from spreading. Call your healthcare provider. Explain that you have been exposed to COVID-19 and have symptoms. Do this before going to any hospital. Wait for instructions. Keep in mind that healthcare staff may wear protective equipment such as masks, gowns, gloves, and eye protection. You may be put in a separate room. This is to prevent the possible virus from spreading. Tell the healthcare staff about recent travel. This includes local travel on public transport. Staff may need to find other people you have been in contact with. Follow all instructions the healthcare staff give you. If you have been diagnosed with COVID-19 Follow all instructions from your healthcare provider. Dont leave your home, except to get medical care. Call your healthcare providers office before going. They can prepare and give you instructions. This will help prevent the virus from spreading. Dont go to work, school, or public areas. Dont use public transport or taxis. Stay away from other people in your home. Have them wear face masks around you. Dont share household items or food. Wear a face mask if you can. This includes at home or in a medical facility. Cover your face with a tissue when you cough or sneeze. Throw the tissue away. Wash your hands. Wash your hands often. Caregivers should: Follow all instructions from healthcare staff. Wear a face mask and protective clothing as advised. Wash hands often. Keep track of the sick persons symptoms. Clean surfaces, fabrics, and laundry thoroughly. Keep other people away from the sick person. When to call your healthcare provider Call your healthcare provider: If youve recently traveled and have symptoms If you have been diagnosed with COVID-19 and your symptoms are worse To learn more To find out more about COVID-19, visit the CDC website at www.cdc.gov/coronavirus/2019-ncov/index.html. [employer]. [address] [place] [address]. All rights reserved. This information is not intended as a substitute for professional medical care. Always follow your healthcare professional's instructions. This information has been adapted from [employer] Home Isolation COVID-19 Instructions The following information about Home Isolation is from the CDC Website: https://www.cdc.gov/coronavirus/2019-ncov/hcp/gzsnsimi-qkiiikg-vrwixd.html Stay home except to get medical care People who are mildly ill with COVID-19 are able to isolate at home during their illness. You should restrict activities outside your home, except for getting medical care. Do not go to work, school, or public areas. Avoid using public transportation, ride-sharing, or taxis. Separate yourself from other people and animals in your home People: As much as possible, you should stay in a specific room and away from other people in your home. Also, you should use a separate bathroom, if available. Animals: You should restrict contact with pets and other animals while you are sick with COVID-19, just like you would around other people. Although there have not been reports of pets or other animals becoming sick with COVID-19, it is sti ll recommended that people sick with COVID-19 limit contact with animals until more information is known about the virus. When possible, have another member of your household care for your animals while you are sick. If you are sick with COVID-19, avoid contact with your pet, including petting, snuggling, being kissed or licked, and sharing food. If you must care for your pet or be around animals while you are sick, wash your hands before and after you interact with pets and wear a face mask. Call ahead before visiting your doctor If you have a medical appointment, call the healthcare provider and tell them that you have or may have COVID-19. This will help the healthcare providers office take steps to keep other people from getting infected or exposed. Wear a face mask You should wear a face mask when you are around other people (e.g., sharing a room or vehicle) or pets and before you enter a healthcare providers office. If you are not able to wear a face mask (for example, because it causes trouble breathing), then people who live with you should not stay in the same room with you, or they should wear a face mask if they enter your room. Cover your coughs and sneezes Cover your mouth and nose with a tissue when you cough or sneeze. Throw used tissues in a lined trash can. Immediately wash your hands with soap and water for at least 20 seconds or, if soap and water are not available, clean your hands with an alcohol-based hand commercial intelligence manager that contains at least 60% alcohol. Clean your hands often Wash your hands often with soap and water for at least 20 seconds, especially after blowing your nose, coughing, or sneezing; going to the bathroom; and before eating or preparing food. If soap and water are not readily available, use an alcohol-based hand commercial intelligence manager with at least 60% alcohol, covering all surfaces of your hands and rubbing them together until they feel dry. Soap and water are the best option if hands are visibly dirty. Avoid touching your eyes, nose, and mouth with unwashed hands. Avoid sharing personal household items You should not share dishes, drinking glasses, cups, eating utensils, towels, or bedding with other people or pets in your home. After using these items, they should be washed thoroughly with soap and water. Clean all high-touch surfaces everyday High touch surfaces include counters, tabletops, doorknobs, bathroom fixtures, toilets, phones, keyboards, tablets, and bedside tables. Also, clean any surfaces that may have blood, stool, or body fluids on them. Use a household cleaning spray or wipe, according to the label instructions. Labels contain instructions for safe and effective use of the cleaning product including precautions you should take when applying the product, such as wearing gloves and making sure you have good ventilation during use of the product. Monitor your symptoms Seek prompt medical attention if your illness is worsening (e.g., difficulty breathing).Beforeseeking care, call your healthcare provider and tell them that you have, or are being evaluated for, COVID-19. Put on a face mask before you enter the facility. These steps will help the healthcare providers office to keep other people in the office or waiting room from getting infected or exposed. Ask your healthcare provider to call the local or state health department. Persons who are placed under active monitoring or facilitated self- monitoring should follow instructions provided by their local health department or occupational health professionals, as appropriate. When working with your local health department check their available hours. If you have a medical emergency and need to call 911, notify the dispatch personnel that you have, or are being evaluated for COVID-19. If possible, put on a face mask before emergency medical services arrive. Discontinuing home isolation Patients with confirmed COVID-19 should remain under home isolation precautions until the risk of secondary transmission to others is thought to be low. The decision to discontinue home isolation precautions should be made on a [id number]-el-[id number] basis, in consultation with healthcare providers and state and local health departments. Pending Studies at Discharge: No Stand-Alone Forms: My [employer], Smoking Cessation Medications and DC Order Prescriptions: New Eliquis 5 mg Tablet 5 mg PO BID Qty: 60 0RF metoprolol succinate 25 mg Tablet Extended Release 24 Hr 25 mg PO BID Qty: 60 0RF magnesium oxide 400 mg (241.3 mg magnesium) Tablet 400 mg PO BID Qty: 20 0RF guaifenesin [Mucinex] 600 mg Tablet Extended Release 12hr 600 mg PO Q12 Qty: 20 0RF Continued citalopram 10 mg tablet 10 mg PO HS cyanocobalamin (vitamin B-12) [Vitamin B-12] 500 mcg Tablet 500 mcg PO QAM Ozempic 1 mg/dose (2 mg/1.5 mL) pen injector 1 mg SUBCUT WK Patient Comments: per pt "she dials it all the way on the pen and thinks it's just 1 mg" Rx Instructions: Sunday (DME) pen needle, diabetic [Pen Needle] 32 gauge x /" needle See Rx Instructions .ROUTE .MEDSUPPLY Qty: 100 0RF Rx Instructions: Check Blood glucose levels 3 times a day as instructed metformin 500 mg tablet extended release 24 hr 1,000 mg PO BID insulin lispro 100 unit/mL insulin pen See Rx Instructions .ROUTE .COMPLEX Rx Instructions: per pt she does sliding scale. rosuvastatin 5 mg tablet 5 mg PO QAM insulin glargine-yfgn [Semglee(insulin glarg-yfgn)Pen] 100 unit/mL (3 mL) insulin pen 30 unit SUBCUT HS Held lisinopril 2.5 mg tablet 2.5 mg PO QAM Hold Instructions: Resume on 05/15/23. until seen by primary care doctor and BP re- checked Discharge Orders: Discharge Order (Routine); Ordered 05/08/23 Ordered By: Ravi Ross/Other Patient Handouts: High Blood Sugar (Hyperglycemia), Managing Type 2 Diabetes Admission Data Admit Date/Time: 05/04/23 23:19 Attending Provider: Ravi Elizondo Admit Provider: Magan Pulido Primary Care Provider: Rosalino Morgan Other Providers: Magan Pulido; Mathew Pagan
[2023-05-08] MEDS: guaiFENesin 600 MG TABCR PO SCH (09:08)
[2023-05-08] MEDS: cefUROXime axetil 250 MG TABLET PO SCH (09:08)
[2023-05-08] MEDS: ROSUVASTATIN CALCIUM 5 MG TAB PO SCH (09:09)
[2023-05-08] MEDS: APIXABAN 5 MG TABLET PO SCH (09:09)
[2023-05-08] MEDS: METOPROLOL SUCC 25MG EXT REL TAB PO SCH (09:09)
[2023-05-08] MEDS: CYANOCOBALAMIN (B-12) 500 MCG TABLET PO SCH (09:09)
[2023-05-08] MEDS: MAGNESIUM OXIDE 400 MG TAB PO SCH (09:09)
[2023-05-08] MEDS: INSULIN ASPART PER UNIT CHARGE SC SCH (09:14)
[2023-05-08] MEDS ORDERED: LANTUS PER UNIT CHARGE SC SCH (21:00)
--- NOTE | 2023-05-11 12:01 | Coding Query ---
CODING QUERY To promote full compliance with coding requirements relating to patient care, provider participation is requested in all cases of auditing coder uncertainty. Please assist us with the question(s) below: Coding Question(s): Please specify below, in your clinical opinion, the diagnosis that was most responsible for occasioning the inpatient admission: ( ) COVID-19 ( x) Atrial Fibrillation w/RVR ( ) Hyperglycemia ( ) UTI ( ) Other: Please Specify Physician's Response(s): Thank you Solange Stone Principal Diagnosis: "that condition established after study, to be chiefly responsible for occasioning the admission of the patient to the hospital for care." Co-Existing Principal Diagnosis: "when two or more diagnoses equally meet the criteria for principal diagnosis as determined by the circumstances of admission, diagnostic work up, and/or therapy provided, and the Alphabetic Index, Tabular List, or another coding guideline does not provide sequencing direction, any one of the diagnoses may be sequenced first." "When the physician has documented what appears to be a current diagnosis in the body of the record, but has not included the diagnosis in the final diagnostic statement, the physician should be asked whether the diagnosis should be added." (Source Coding Clinic 2 QTR90. p3-4) RASHID
== END 2023-05-08 09:51 | disposition home or self-care (01) | DRG 308 ==
LOC: ED 16:00 → EDINP 23:19 → 2S 05-05 11:51